=== PATIENT | female | born 1990 | race Caucasian/White ===

== ENCOUNTER 2016-12-21 15:06 | Inpatient (IN) | payer OTHER ==
[~2016-12-21] VITALS: Ht 165.1 cm; Wt 96.2 kg
--- NOTE | 2016-12-21 15:32 | Emergency Room Report ---
History of Present Illness General Chief Complaint: Skin Rash/Abscess Source: Patient Present Illness HPI This patient has a history of chronic hidradenitis suppurativa. She presents for surgical treatment by Dr. Espinoza. She denies fever or chills. She has no other complaints. Allergies: Coded Allergies: No Known Allergies (Unverified , 12/21/16) Patient History Past Medical History: other - Hidradinitis supperitiva 11/17 Social History: Denies: alcohol use, drug use, smoking Last Menstrual Period: unk Reviewed Nursing Documentation: PMH: Agreed, PSxH: Agreed Nursing Documentation-PMH Past Medical History: No History, Except For Review of Systems All Other Systems: negative except mentioned in HPI Physical Exam Vital Signs Date Time Temp Pulse Resp B/P Pulse Ox O2 Delivery O2 Flow Rate FiO2 12/21/16 15:15 98.4 71 16 114/77 97 Room Air Sp02 EP Interpretation: reviewed, normal General Appearance: no apparent distress, alert, GCS 15, non-toxic Head: normocephalic, atraumatic Eyes: bilateral eye PERRL, bilateral eye normal inspection ENT: hearing grossly normal, normal pharynx, no angioedema, normal voice Neck: full range of motion, supple/symm/no masses Respiratory: chest non-tender, lungs clear, normal breath sounds, speaking full sentences Cardiovascular #1: regular rate, rhythm, no edema Gastrointestinal: normal bowel sounds, non tender, soft, non-distended, no guarding, no rebound Rectal: deferred Musculoskeletal: back normal, gait/station normal, normal range of motion, non- tender Neurologic: alert, oriented x3, responsive, motor strength/tone normal, sensory intact, speech normal Psychiatric: judgement/insight normal, memory normal, mood/affect normal, no suicidal/homicidal ideation Skin: well hydrated, other - Inflammatory nodule bilateral inguinal region. Medical Decision Making Diagnostic Impression: Primary Impression: Hidradenitis suppurativa ER Course This patient has hidradenitis suppurativa that is resistant to conservative treatment. Patient is admitted for surgical treatment by Dr. Espinoza. Labs Test 12/21/16 16:11 White Blood Count 12.5 K/UL (4.8-10.8) Red Blood Count 4.00 M/UL (4.20-5.40) Hemoglobin 12.4 G/DL (12.0-16.0) Hematocrit 35.8 % (37.0-47.0) Mean Corpuscular Volume 90 FL (80-99) Mean Corpuscular Hemoglobin 31.1 PG (27.0-31.0) Mean Corpuscular Hemoglobin Concent 34.8 G/DL (32.0-36.0) Red Cell Distribution Width 12.5 % (11.6-14.8) Platelet Count 282 K/UL (150-450) Mean Platelet Volume 7.2 FL (6.5-10.1) Neutrophils (%) (Auto) 57.4 % (45.0-75.0) Lymphocytes (%) (Auto) 33.0 % (20.0-45.0) Monocytes (%) (Auto) 6.9 % (1.0-10.0) Eosinophils (%) (Auto) 1.6 % (0.0-3.0) Basophils (%) (Auto) 1.1 % (0.0-2.0) Prothrombin Time 10.4 SEC (9.30-11.50) Prothromb Time International Ratio 1.0 (0.9-1.1) Activated Partial Thromboplast Time 28 SEC (23-33) Sodium Level 136 mEQ/L (135-145) Potassium Level 3.9 mEQ/L (3.4-4.9) Chloride Level 101 mEQ/L (98-107) Carbon Dioxide Level 23 mEQ/L (20-30) Anion Gap 12 (5-15) Blood Urea Nitrogen 9 mg/dL (7-23) Creatinine 0.8 mg/dL (0.5-0.9) Estimat Glomerular Filtration Rate > 60 mL/min (>60) Glucose Level 91 mg/dL (74-106) Calcium Level 9.6 mg/dL (8.6-10.2) Last Vital Signs Date Time Temp Pulse Resp B/P Pulse Ox O2 Delivery O2 Flow Rate FiO2 12/21/16 15:15 98.4 71 16 114/77 97 Room Air Disposition: ADMITTED INPATIENT Condition: Stable LIMA WALLER D.O. Dec 21, 2016 15:32
[2016-12-21] MEDS ORDERED: MONTELUKAST SOD10 MG ORAL (16:18)
[2016-12-21] MEDS ORDERED: SINGULAIR10 MG ORAL (16:18)
[2016-12-21] MEDS ORDERED: SYMBICORT INH (16:18)
[2016-12-21] MEDS ORDERED: NATURAL THYROID PO (16:19)
[2016-12-21 16:28] LABS: BASOPHILS % (AUTO) 1.1 % (0.0-2.0); EOSINOPHILS % (AUTO) 1.6 % (0.0-3.0); MEAN CORPUSCULAR HEMOGLOBIN 31.1 PG (27.0-31.0); MEAN CORPUSCULAR HGB CONC 34.8 G/DL (32.0-36.0); MEAN CORPUSCULAR VOLUME 90 FL (80-99); MEAN PLATELET VOLUME 7.2 FL (6.5-10.1); MONOCYTES % (AUTO) 6.9 % (1.0-10.0); NEUTROPHILS % (AUTO) 57.4 % (45.0-75.0); PLATELET COUNT 282 K/UL (150-450); RED CELL DISTRIBUTION WIDTH 12.5 % (11.6-14.8); WHITE BLOOD COUNT 12.5 K/UL (4.8-10.8)
[2016-12-21 16:41] LABS: PROTHROMBIN TIME 10.4 SEC (9.30-11.50)
[2016-12-21 16:52] VITALS: BP 118/75
[2016-12-21 17:03] LABS: ANION GAP 12 (5-15); CALCIUM 9.6 mg/dL (8.6-10.2); CARBON DIOXIDE 23 mEQ/L (20-30); CHLORIDE 101 mEQ/L (98-107); CREATININE 0.8 mg/dL (0.5-0.9); GLOMERULAR FILTRATION RATE > 60 mL/min (>60); HEMOLYSIS 6; POTASSIUM 3.9 mEQ/L (3.4-4.9); SODIUM 136 mEQ/L (135-145)
[2016-12-21] MEDS ORDERED: SYMBICORT 16010.2 G1 IH (18:10)
[2016-12-21] MEDS ORDERED: LEVOCETIRIZINE D5 MG ORAL (18:11)
[2016-12-21] MEDS ORDERED: PROAIR HFA8.5 GM INH (18:12)
[2016-12-21] MEDS ORDERED: DEPO-PROVE150 MG/1 M IM (18:14)
[2016-12-21] MEDS ORDERED: Milk of Magnesia 30ml Ud ORAL PRN (18:15)
[2016-12-21] MEDS ORDERED: LORazepam Inj 2mg/ml 1ml IV PRN (18:15)
[2016-12-21] MEDS ORDERED: Morphine Sulfate 2mg/ml Inj IVP PRN (18:15)
[2016-12-21] MEDS ORDERED: Morphine Sulfate 4mg/ml Inj IVP PRN (18:15)
[2016-12-21] MEDS ORDERED: Mylanta II UD 30ml ORAL PRN (18:15)
[2016-12-21] MEDS ORDERED: Miralax 17gm pkt ORAL PRN (18:15)
[2016-12-21] MEDS ORDERED: IBUPROFEN600 MG ORAL (18:15)
[2016-12-21 18:27] VITALS: BP 122/79
--- NOTE | 2016-12-21 18:52 | History and Physical ---
History of Present Illness General Date patient seen: Dec 21, 2016 Time patient seen: 18:48 Reason for Hospitalization: Skin Rash/Abscess Present Illness HPI 26 y/o female with hx of hidradenitis suppurativa, presents to the ED with c/o bilateral groin and R axillary lesions, painful to touch. Pt is s/p previous groin resection a month ago, however it was limited, and her disease has progressed. she has been on multiple abx in the past and on humira without significant improvement. She did not have any complications from cardio/pulm standpoint or from gen anesthesia with her last surgery. Pt saw her surgeon today in clinic and was sent to ED due to concern for possible abscess Allergies: Coded Allergies: No Known Allergies (Unverified , 12/21/16) Medication History Scheduled Budesonide/Formoterol Fumarate (Symbicort 160-4.5 Mcg Inhaler), 2 PUFF IH DAILY, (Reported) Levocetirizine Dihydrochloride (Levocetirizine Dihydrochloride), 5 MG ORAL DAILY , (Reported) Montelukast Sodium* (Montelukast Sodium*), Unknown Dose ORAL DAILY, (Reported) Scheduled PRN Albuterol Sulfate* (Proair Hfa*), 1 PUFF INH Q6H PRN for Bronchospasm, (Reported ) Ibuprofen* (Motrin*), 400 MG ORAL for For Pain, (Reported) Miscellaneous Medications Medroxyprogesterone Acetate (Depo-Provera), 150 MG IM, (Reported) Patient History History Provided By: Patient, Family Member Healthcare decision maker Resuscitation status ful code Advanced Directive on File Past Medical/Surgical History Past Medical/Surgical History: (1) Hidradenitis suppurativa Family History Family History: Patient reports no known family medical history. Social History Social History: (1) No significant social history Review of Systems ROS Narrative CONSTITUTIONAL: No weight loss, fever, chills, weakness or fatigue. HEENT: Eyes: No visual loss, blurred vision, double vision or yellow sclerae. Ears, Nose, Throat: No hearing loss, sneezing, congestion, runny nose or sore throat. SKIN: No rash or itching. CARDIOVASCULAR: No chest pain, chest pressure or chest discomfort. No palpitations or edema. RESPIRATORY: No shortness of breath, cough or sputum. GASTROINTESTINAL: No anorexia, nausea, vomiting or diarrhea. No abdominal pain or blood. NEUROLOGICAL: No headache, dizziness, syncope, paralysis, ataxia, numbness or tingling in the extremities. No change in bowel or bladder control. MUSCULOSKELETAL: discomfort in groin and R axilla, multiple lesions, skin changes HEMATOLOGIC: No anemia, bleeding or bruising. LYMPHATICS: No enlarged nodes. No history of splenectomy. PSYCHIATRIC: No history of depression or anxiety. ENDOCRINOLOGIC: No reports of sweating, cold or heat intolerance. No polyuria or polydipsia. ALLERGIES: No history of asthma, hives, eczema or rhinitis. Physical Exam Physical Exam Narrative General: alert, cooperative, no distress, appears stated age Head: normocephalic, without obvious abnormality, atraumatic Eyes: conjunctivae/corneas clear. PERRL, EOM's intact Throat: lips, mucosa, and tongue normal. MMM Neck: supple, symmetrical, trachea midline, and no JVD Lungs: clear to auscultation bilaterally Heart: regular rate and rhythm, S1, S2 normal, no murmur, click, rub or gallop Abdomen: soft, non-tender, non-distended, bowel sounds normal; no masses or organomegaly Extremities: bilateral groin lesions, some erythema, milt tenderness to palpation, no active pus or bleeding, multiple indurations R axillary lesion, min erythema, no rubor, indurated, no fluctuance Pulses: 2+ and symmetric Skin: skin color, texture, turgor normal; no rashes or lesions Neurologic: grossly normal, no focal deficits Last 24 Hour Vital Signs Date Time Temp Pulse Resp B/P Pulse Ox O2 Delivery O2 Flow Rate FiO2 12/21/16 18:27 98.2 77 14 122/79 98 Room Air 12/21/16 16:52 98.3 74 15 118/75 98 Room Air 12/21/16 15:15 98.4 71 16 114/77 97 Room Air Laboratory Tests Test 12/21/16 16:11 White Blood Count 12.5 K/UL (4.8-10.8) H Red Blood Count 4.00 M/UL (4.20-5.40) L Hemoglobin 12.4 G/DL (12.0-16.0) Hematocrit 35.8 % (37.0-47.0) L Mean Corpuscular Volume 90 FL (80-99) Mean Corpuscular Hemoglobin 31.1 PG (27.0-31.0) H Mean Corpuscular Hemoglobin Concent 34.8 G/DL (32.0-36.0) Red Cell Distribution Width 12.5 % (11.6-14.8) Platelet Count 282 K/UL (150-450) Mean Platelet Volume 7.2 FL (6.5-10.1) Neutrophils (%) (Auto) 57.4 % (45.0-75.0) Lymphocytes (%) (Auto) 33.0 % (20.0-45.0) Monocytes (%) (Auto) 6.9 % (1.0-10.0) Eosinophils (%) (Auto) 1.6 % (0.0-3.0) Basophils (%) (Auto) 1.1 % (0.0-2.0) Prothrombin Time 10.4 SEC (9.30-11.50) Prothromb Time International Ratio 1.0 (0.9-1.1) Activated Partial Thromboplast Time 28 SEC (23-33) Sodium Level 136 mEQ/L (135-145) Potassium Level 3.9 mEQ/L (3.4-4.9) Chloride Level 101 mEQ/L (98-107) Carbon Dioxide Level 23 mEQ/L (20-30) Anion Gap 12 (5-15) Blood Urea Nitrogen 9 mg/dL (7-23) Creatinine 0.8 mg/dL (0.5-0.9) Estimat Glomerular Filtration Rate > 60 mL/min (>60) Glucose Level 91 mg/dL (74-106) Calcium Level 9.6 mg/dL (8.6-10.2) Height (Feet): 5 Height (Inches): 5.00 Weight (Pounds): 212 Medications Current Medications Medications (Trade) Dose Ordered Sig/Last Route PRN Reason Start Time Stop Time Status Last Admin Dose Admin Acetaminophen (Tylenol) 650 mg Q4H PRN ORAL Mild Pain (Pain Scale 1-3) 12/21/16 18:15 01/20/17 18:14 UNV Acetaminophen (Tylenol) 650 mg Q4H PRN ORAL fever 12/21/16 18:15 01/20/17 18:14 UNV Al Hydroxide/Mg Hydroxide (Mylanta II) 30 ml Q6H PRN ORAL dyspepsia 12/21/16 18:15 01/20/17 18:14 UNV Bisacodyl (Dulcolax) 10 mg HSPRN PRN RECTAL Constipation 12/21/16 18:15 01/20/17 18:14 UNV Cefazolin Sodium/ Dextrose (Ancef/D5W) 55 ml @ 110 mls/hr Q8HR IVPB 12/21/16 22:00 12/28/16 21:59 UNV Dextrose STAT PRN IV Hypoglycemia 12/21/16 18:15 01/20/17 18:14 UNV Diphenhydramine HCl (Benadryl) 25 mg Q6H PRN ORAL Itching/Pruritis 12/21/16 18:15 01/20/17 18:14 UNV Docusate Sodium (Colace) 100 mg EVERY 12 HOURS ORAL 12/21/16 21:00 01/20/17 20:59 UNV Lorazepam (Ativan 2mg/ml 1ml) 0.5 mg Q4H PRN IV For Anxiety 12/21/16 18:15 12/28/16 18:14 UNV Magnesium Hydroxide (Mom) 30 ml HSPRN PRN ORAL Constipation 12/21/16 18:15 01/20/17 18:14 UNV Morphine Sulfate (Morphine Sulfate) 2 mg Q4HR PRN IVP Moderate Pain (Pain Scale 4-6) 12/21/16 18:15 12/28/16 18:14 UNV Morphine Sulfate (Morphine Sulfate) 4 mg Q4HR PRN IVP Severe Pain (Pain Scale 7-10) 12/21/16 18:15 12/28/16 18:14 UNV Ondansetron HCl (Zofran) 4 mg Q6H PRN IVP Nausea & Vomiting 12/21/16 18:15 01/20/17 18:14 UNV Polyethylene Glycol (Miralax) 17 gm HSPRN PRN ORAL Constipation 12/21/16 18:15 01/20/17 18:14 UNV Temazepam (Restoril) 15 mg HSPRN PRN ORAL Insomnia 12/21/16 18:15 12/28/16 18:14 UNV Assessment/Plan Problem List: (1) Abscess Assessment & Plan: Admit to inpatient Start IV abx Surgical consultation Pain control Supp care f/u cultures DVT/GI ppx ICD Codes: L02.91 - Cutaneous abscess, unspecified SNOMED: [id number] KIT DAVIDSON Dec 21, 2016 18:52
[2016-12-21] MEDS ORDERED: Albuterol 90mcg Inhaler 8gm INH PRN (19:00)
[2016-12-21 20:00] VITALS: BP 113/69
[2016-12-21] MEDS: ceFAZolin sod 1 GM in D5W 55 ML IVPB SCH (20:35)
[2016-12-21] MEDS: Docusate 100mg cap ORAL SCH (20:35)
[2016-12-22] VITALS (11 sets, daily range): BP systolic 112–134; BP diastolic 55–77
[2016-12-22] MEDS: ceFAZolin sod 1 GM in D5W 55 ML IVPB SCH ×3 (05:44→21:16)
[2016-12-22] MEDS ORDERED: Ketamine 500mg Inj ONE (07:00)
[2016-12-22] MEDS ORDERED: Propofol 10mg/ml 20ml IV ONE (07:00)
[2016-12-22] MEDS ORDERED: Lidocaine 1% Plain 30 ml INJ ONE (07:00)
[2016-12-22] MEDS ORDERED: NS Irrig 1000ml ONE (07:00)
[2016-12-22] MEDS ORDERED: Zemuron 50mg/5ml Inj IV ONE (07:00)
[2016-12-22] MEDS ORDERED: Glycopyrrolate 0.2mg/ml 1ml Vial ONE (07:00)
[2016-12-22] MEDS ORDERED: Lidocaine 1% MPF 10mg/ml 5ml ONE (07:00)
[2016-12-22] MEDS ORDERED: Metoprolol 5mg/5ml Inj ONE (07:00)
[2016-12-22] MEDS ORDERED: LR 1000ml ONE (07:00)
[2016-12-22] MEDS ORDERED: Sterile Water Irrig 1000ml IRRIG ONE (07:00)
[2016-12-22] MEDS ORDERED: Neostigmine 1mg/ml 10ml Inj ONE (07:00)
[2016-12-22] MEDS ORDERED: fentaNYL 100 mcg/2 mL IV ONE (07:00)
[2016-12-22] MEDS ORDERED: Dexamethasone 4mg/ml vial ONE (07:00)
[2016-12-22] MEDS ORDERED: Midazolam 2mg/2ml Inj ONE (07:00)
[2016-12-22] MEDS ORDERED: Lidocaine 1% 10mg/ml/Epi 0.005mg/ml 30ml vial INJ ONE (07:33)
[2016-12-22] MEDS ORDERED: Bacitracin 50000 Units Vial ONE (07:34)
[2016-12-22] MEDS ORDERED: LR 1000ml 1,000 ML IVLG SCH (07:41)
--- NOTE | 2016-12-22 07:41 | Anethesia Preoperative Eval ---
Anesthesia Pre-op PMH/ROS General Date of Evaluation: Dec 22, 2016 Time of Evaluation: 07:36 Anesthesiologist: Rosa ASA Score: ASA 2 - Emergergency Mallampati Score Class I : Soft palate, uvula, fauces, pillars visible Class II: Soft palate, uvula, fauces visible Class III: Soft palate, base of uvula visible Class IV: Only hard plate visible Mallampati Classification: Class I Surgeon: Marcelino Diagnosis: Hidradenitis Suppurativa Surgical Procedure: Debridment of Bilateral Groin/Thighs with Flap Elevation Anesthesia History: none Family History: no anesthesia problems Allergies: Coded Allergies: No Known Allergies (Unverified , 12/21/16) Medications: see eMAR Past Medical History Pulmonary: Reports: asthma Other: obesity - BMI 35 Anesthesia Pre-op Phys. Exam Physician Exam Last Vital Signs Date Time Temp Pulse Resp B/P Pulse Ox O2 Delivery O2 Flow Rate FiO2 12/22/16 04:00 97.9 65 17 127/62 99 Room Air Constitutional: NAD Neurologic: CN 2-12 intact Cardiovascular: RRR Respiratory: CTA Gastrointestinal: S/NT/ND Airway Exam Mallampati Score: Class I MO: full ROM: full Teeth: intact Anesthesia Pre-op A/P Labs Hematology Test 12/21/16 16:11 White Blood Count 12.5 K/UL (4.8-10.8) H Red Blood Count 4.00 M/UL (4.20-5.40) L Hemoglobin 12.4 G/DL (12.0-16.0) Hematocrit 35.8 % (37.0-47.0) L Mean Corpuscular Volume 90 FL (80-99) Mean Corpuscular Hemoglobin 31.1 PG (27.0-31.0) H Mean Corpuscular Hemoglobin Concent 34.8 G/DL (32.0-36.0) Red Cell Distribution Width 12.5 % (11.6-14.8) Platelet Count 282 K/UL (150-450) Mean Platelet Volume 7.2 FL (6.5-10.1) Neutrophils (%) (Auto) 57.4 % (45.0-75.0) Lymphocytes (%) (Auto) 33.0 % (20.0-45.0) Monocytes (%) (Auto) 6.9 % (1.0-10.0) Eosinophils (%) (Auto) 1.6 % (0.0-3.0) Basophils (%) (Auto) 1.1 % (0.0-2.0) Coagulation Test 12/21/16 16:11 Prothrombin Time 10.4 SEC (9.30-11.50) Prothromb Time International Ratio 1.0 (0.9-1.1) Activated Partial Thromboplast Time 28 SEC (23-33) Chemistry Test 12/21/16 16:11 Sodium Level 136 mEQ/L (135-145) Potassium Level 3.9 mEQ/L (3.4-4.9) Chloride Level 101 mEQ/L (98-107) Carbon Dioxide Level 23 mEQ/L (20-30) Anion Gap 12 (5-15) Blood Urea Nitrogen 9 mg/dL (7-23) Creatinine 0.8 mg/dL (0.5-0.9) Estimat Glomerular Filtration Rate > 60 mL/min (>60) Glucose Level 91 mg/dL (74-106) Calcium Level 9.6 mg/dL (8.6-10.2) Urine Test Test 12/21/16 23:00 Urine HCG, Qualitative Negative Risk Assessment & Plan Assessment: ASA 2 Plan: GA, BIS, Glidescope Status Change Before Surgery: No Pre-Antibiotics Dru Grams Ancef IV Given Within 1 Hr of Incision: Yes Time Given: 07:56 Celestino Lee MD Dec 22, 2016 07:41
[2016-12-22] MEDS ORDERED: Ketorolac 30mg Inj IV PRN (07:45)
[2016-12-22] MEDS ORDERED: LORazepam Inj 2mg/ml 1ml IV PRN (07:45)
[2016-12-22] MEDS ORDERED: Midazolam 2mg/2ml Inj IVP PRN (07:45)
[2016-12-22] MEDS ORDERED: Hydromorphone 0.5mg/0.5ml inj IVP PRN (07:45)
[2016-12-22] MEDS ORDERED: Atropine Inj 1mg/10ml Syr IV PRN (07:45)
[2016-12-22] MEDS ORDERED: Meperidine 25mg/0.5ml Inj (FOR RIGORS ONLY) IV PRN (07:45)
[2016-12-22] MEDS ORDERED: Norco 5mg/325mg tab ORAL PRN (07:45)
[2016-12-22] MEDS ORDERED: Oxycodone/Acetaminophen 5-325 ORAL PRN (07:45)
[2016-12-22] MEDS ORDERED: Ketorolac 60mg Inj IV PRN (07:45)
[2016-12-22] MEDS ORDERED: Norco 7.5mg/325mg tab ORAL PRN (07:45)
[2016-12-22] MEDS ORDERED: fentaNYL 100 mcg/2 mL IV PRN (07:45)
[2016-12-22] MEDS ORDERED: DiphenhydrAMINE 50mg/ml Inj IVP PRN ×2 (07:45→08:00)
[2016-12-22] MEDS ORDERED: Metoclopramide 10mg/2ml Inj IVP PRN ×2 (07:45→21:30)
--- NOTE | 2016-12-22 07:46 | 48 Hour Post Anesthesia Eval ---
Post Anesthesia Evaluation Procedure: Debridment of Bilateral Groin/Thighs with Flap Elevation Date of Evaluation: Dec 22, 2016 Time of Evaluation: 12:41 Blood Pressure Systolic: 131 0: 72 Pulse Rate: 62 Respiratory Rate: 18 Temperature (Fahrenheit): 98.3 O2 Sat by Pulse Oximetry: 100 Airway: patent Nausea: No Vomiting: No Pain Intensity: 2 Hydration Status: adequate Cardiopulmonary Status: Stable Mental Status/LOC: patient returned to baseline Follow-up Care/Observations: 0 Post-Anesthesia Complications: 0 Follow-up care needed: N/A Celestino Lee MD Dec 22, 2016 07:46
--- NOTE | 2016-12-22 07:46 | Immediate Post-Op Evaluation ---
Immediate Post-Op Evalulation Immediate Post-Op Evalulation Procedure: Debridment of Bilateral Groin/Thighs with Flap Elevation Date of Evaluation: Dec 22, 2016 Time of Evaluation: 10:29 IV Fluids: 900 LR Blood Products: 0 Estimated Blood Loss: 75 Urinary Output: 225 Blood Pressure Systolic: 135 Blood Pressure Diastolic: 68 Pulse Rate: 76 Respiratory Rate: 16 O2 Sat by Pulse Oximetry: 100 Temperature (Fahrenheit): 97.2 Pain Score (1-10): 2 Nausea: No Vomiting: No Complications 0 Patient Status: awake, reacts, patent, extubated, none Hydration Status: adequate DruGram Ancef IV Given Within 1 Hr of Incision: Yes Time Given: 07:56 Celestino Lee MD Dec 22, 2016 07:46
--- NOTE | 2016-12-22 07:50 | Pre-Procedure Note/Attestation ---
Pre-Procedure Note/Attestation Complete Prior to Procedure Planned Procedure: bilateral Procedure Narrative: Bilateral groin debridement and flap elevation Attestation I attest that I discussed the nature of the procedure; its benefits; risks and complications; and alternatives (and the risks and benefits of such alternatives ), prior to the procedure, with the patient (or the patient's legal junior sales representative). I attest that, if there was a reasonable possibility of needing a blood transfusion, the patient (or the patient's legal junior sales representative) was given the [facility] standardized written summary, pursuant to the Marlon [place] Blood Safety Act ([place] Health and Safety Code # 1645, as amended). I attest that I re-evaluated the patient just prior to the surgery and that there has been no change in the patient's H&P, except as documented below: ADDISON SIERRA Dec 22, 2016 07:50
[2016-12-22] MEDS ORDERED: Surgicel 4in x 8in TOPIC ONE ×3 (07:57→09:39)
[2016-12-22] MEDS ORDERED: Rate Change PCA 1 Each MISC PRN (08:00)
[2016-12-22] MEDS ORDERED: Acetaminophen 650 MG SUPP RECTAL PRN (08:00)
[2016-12-22 08:24] LABS: ANION GAP 12 (5-15); CALCIUM 9.6 mg/dL (8.6-10.2); CARBON DIOXIDE 23 mEQ/L (20-30); CHLORIDE 102 mEQ/L (98-107); CREATININE 0.8 mg/dL (0.5-0.9); GLOMERULAR FILTRATION RATE > 60 mL/min (>60); HEMOLYSIS 13; POTASSIUM 3.8 mEQ/L (3.4-4.9); SODIUM 137 mEQ/L (135-145)
[2016-12-22 08:57] LABS: BASOPHILS % (AUTO) 1.1 % (0.0-2.0); EOSINOPHILS % (AUTO) 2.5 % (0.0-3.0); LYMPHOCYTES % (AUTO) 36.3 % (20.0-45.0); MEAN CORPUSCULAR HEMOGLOBIN 28.4 PG (27.0-31.0); MEAN CORPUSCULAR VOLUME 91 FL (80-99); MONOCYTES % (AUTO) 6.1 % (1.0-10.0); PLATELET COUNT 332 K/UL (150-450); RED BLOOD COUNT 4.66 M/UL (4.20-5.40); RED CELL DISTRIBUTION WIDTH 12.7 % (11.6-14.8); WHITE BLOOD COUNT 11.8 K/UL (4.8-10.8)
[2016-12-22] MEDS: Montelukast 10mg tablet ORAL SCH (09:00)
[2016-12-22] MEDS: Docusate 100mg cap ORAL SCH ×2 (09:00→21:07)
--- NOTE | 2016-12-22 10:05 | Operative Note - PDOC ---
Operative Note Operative Note Pre-op Diagnosis: Bilateral infected groin tissue Procedure: Radical excision of bilateral infected groin tissue with flap elevation and wound vac placement Post-op Diagnosis: same as pre-op Surgeon: Marcelino [employer] Operator: Regino Anesthesia: general Specimen: yes Complications: none Condition: stable Estimated Blood Loss: minimal Drains: wound vac Implant(s) used?: No ADDISON SIERRA Dec 22, 2016 10:05
[2016-12-22] MEDS: PCA HYDROmorphone 1mg/ml 30 ML IV PRN (10:26)
--- NOTE | 2016-12-22 11:30 | Consultation ---
DATE OF CONSULTATION: 12/22/2016 HISTORY OF PRESENT ILLNESS: This is a 26-year-old female, admitted to the emergency room with bilateral groin abscess and pain with an elevated white count. She had been complaining of symptoms for several days with worsening of symptoms recently. PAST MEDICAL HISTORY: Significant for hidradenitis. PAST SURGICAL HISTORY: Significant for a previous incision and drainage as well as excision of hidradenitis. MEDICATIONS: Include antibiotics. ALLERGIES: None. PHYSICAL EXAMINATION: GENERAL: The patient is alert and oriented. HEART: Regular rate and rhythm. ABDOMEN: Obese and nondistended. EXTREMITIES: Examination of the trunk and lower extremities revealed multiple areas of abscess and infected groin tissue and upper thigh tissue. LABORATORY DATA: White blood cell count was 12.5 as stated. ASSESSMENT AND PLAN: This is a 26-year-old female with bilateral infected groin tissues. She will require intravenous antibiotics with radical excisional debridement with a staged reconstruction using flaps. The patient understands the plan and will proceed. Connie Benson M.D. DR: FRAN JOB#: [id number] CC:
--- NOTE | 2016-12-22 11:45 | Operative Note - Dictated ---
DATE OF OPERATION: 12/22/2016 PREOPERATIVE DIAGNOSIS: Bilateral infected groin tissue. POSTOPERATIVE DIAGNOSIS: Bilateral infected groin tissue. PROCEDURES: 1. Radical excision of infected right groin tissue. 2. Elevation of anterior fasciocutaneous thigh flap for staged closure of right groin wound measuring 180 square cm. 3. Elevation of a posterior thigh flap for staged closure of right groin wound measuring 180 sq cm. 4. Radical excision of left groin infected tissue. 5. Elevation of an anterior thigh flap for staged closure of left groin wound measuring 190 square cm. 6. Elevation of a posterior thigh flap for staged closure of left groin wound measuring 190 square cm. 7. Bilateral wound VAC placement to the open groin wounds. SURGEON: Connie Benson M.D. SUBSTANCE ABUSE TECHNICIAN: Mala Lacy M.D. ANESTHESIA: General. COMPLICATIONS: None. EBL: 50 mL. DRAINS: Included bilateral wound VACs. DISPOSITION: Stable to the recovery room. INDICATIONS FOR SURGERY: This is a 26-year-old female, admitted to the emergency room with an elevated white count of 12.5 with bilateral groin abscesses and infected tissue. She was complaining of several days of pain and discomfort and which is why she presented to the emergency room with these symptoms. She was noted to have significant areas of infection, which would require radical excision and given the amount of infection present. The discussion I had with the patient with that this would require a staged treatment with excision followed by definitive flap closure following the first surgery. She understood this and understand that she would need more than one operation and she agreed to proceed. DETAILS OF THE OPERATION: The patient was brought to the operating room and laid in the lithotomy position in the operating room table. Her bilateral groins, upper thighs, and lower abdomen were prepped and draped in a sterile and usual fashion. Preoperatively, the areas that had the infection were marked in a maya-shaped pattern on both sides. These were quite large wounds and once the markings were confirmed to be correct, a #10 blade was used first on the left groin to make the skin incision all the way around the maya-shaped pattern with subsequent use of electrocautery to radically excised infected tissue to the level of the adductor fascia. This resulted in a very large defect of approximately 190 square cm. With this done, it was obvious that the wound could not be closed primarily. As such, flaps had to be elevated to allow for this closure. We first began by elevating the anterior thigh flap based off of perforators of the superficial femoral artery undermining done at the level of the adductor fascia, however, even with this, it was noted that a significant back cut had to be performed to allow for advancement of the flap. The back cut was placed within the groin crease and this was extended approximately 7 cm cephalad to allow for advancement of the flap. At this time, we noted that we would be able to achieve further closure, however, it was still not complete. As such, a posterior thigh flap was elevated based off of perforators of the deep femoral artery. This flap was elevated above the fascia level with proximal and distal incisions made to fully mobilize the flap. With this done, we noted the flaps could be brought together, however, there was still some tension noted. We then at this point placed a lidocaine with epinephrine soaked gauze within the wound bed and turned our attention to the contralateral groin wound. The right groin wound was similarly approached using a #10 blade to make the skin incision around the markings and electrocautery was then used to carry all the way down to the level of the adductor fascia to radically excise this infected groin tissue. This resulted in a similar size wound and in a similar fashion, we had to raise flaps to allow for definitive wound closure and anterior thigh flap based off of perforators of the superficial femoral artery was elevated with proximal and distal incisions made. Once again, the back cut had to be placed within the groin crease to allow for further advancement of the flap and in a similar fashion, a posterior thigh flap was also elevated based off of perforators of the deep femoral artery with proximal and distal incisions made to fully mobilize the flap. On this side, it was noted that the flap advanced and allow for less tension to the wound closure. Both wounds were then copiously irrigated with pulse lavage and hemostasis was achieved. Given the fact that there was infection present and given the fact that there was tension on the flaps despite mobilizing them significantly. I felt an appropriate course of action. At this point, would be to temporize the wound with placement of wound VAC. With the thought of bringing the patient back to the operating room within 3 to 5 days for definitive flap closure. The wound VACs were placed set to 150 mmHg on high continuous suction. The patient tolerated the procedure well. There were no complications. Connie Benson M.D. DR: ESTEBAN JOB#: [id number] CC:
--- NOTE | 2016-12-22 19:07 | General Progress Note ---
Assessment/Plan Problem List: (1) Abscess ICD Codes: L02.91 - Cutaneous abscess, unspecified SNOMED: 603811262 (2) Hidradenitis suppurativa ICD Codes: L73.2 - Hidradenitis suppurativa SNOMED: 25477564 (3) Abdominal cramping ICD Codes: R10.9 - Unspecified abdominal pain SNOMED: 21671825 Status: stable Assessment/Plan - Appreciate surgery rec's - s/p radical excision of bilateral infected groin tissue with flap elevation and wound vac placement on 12/22 - cont wound care per surgery - Cont IV abx: ancef - F/u cultures - Plan for OR on saturday for closure of right groin wound with delayed closure of left groin wound 2 days after - Encourage mobilization/ambulation - Encourage incentive spirometry to optimize pulmonary hygiene - DVT/GI prophylaxis as appropriate - ctm CBC and hemodynamics - ctm electrolytes, adjust/replete prn - pain control, supportive care, bowel regimen A total of 31min of additional time was spent in addition to normal encounter time for care/coordination and counseling. D/w pt, RN, surgery regarding mgmt and dispo. Subjective Date patient seen: Dec 22, 2016 Time patient seen: 16:00 ROS Limited/Unobtainable: No Constitutional: Reports: no symptoms HEENT: Reports: no symptoms Cardiovascular: Reports: no symptoms Respiratory: Reports: no symptoms Gastrointestinal/Abdominal: Reports: no symptoms Genitourinary: Reports: no symptoms Neurologic/Psychiatric: Reports: no symptoms Endocrine: Reports: no symptoms Hematologic/Lymphatic: Reports: no symptoms Allergies: Coded Allergies: No Known Allergies (Unverified , 12/21/16) Subjective s/p Radical excision of bilateral infected groin tissue with flap elevation and wound vac placement today Pt doing well Pain controlled C/o abd cramping, loose stools Some nausea after surgery, no emesis Denies f/c, chest pain, SOB Objective Last 24 Hour Vital Signs Date Time Temp Pulse Resp B/P Pulse Ox O2 Delivery O2 Flow Rate FiO2 12/22/16 16:00 97.5 85 18 113/63 96 Nasal Cannula 2.0 12/22/16 16:00 18 12/22/16 14:26 98.1 75 18 118/61 96 Nasal Cannula 2.0 12/22/16 14:25 75 18 95 Nasal Cannula 1.0 24 12/22/16 14:24 75 18 95 Nasal Cannula 1.0 24 12/22/16 12:29 97.9 68 18 118/67 98 Nasal Cannula 2.0 12/22/16 12:17 18 12/22/16 11:47 18 12/22/16 11:25 18 12/22/16 11:25 97.6 66 18 112/55 Nasal Cannula 3.0 12/22/16 11:00 97.6 12/22/16 11:00 97.6 12/22/16 11:00 17 12/22/16 11:00 97.6 63 18 131/71 100 Nasal Cannula 3.0 12/22/16 10:45 72 20 128/66 100 Nasal Cannula 3.0 12/22/16 10:45 15 12/22/16 10:30 99 16 134/77 100 Nasal Cannula 3.0 12/22/16 10:26 16 12/22/16 10:25 64 16 131/71 100 Simple Mask 6.0 12/22/16 10:21 62 18 100 12/22/16 10:20 76 16 100 12/22/16 10:18 97.2 65 16 125/68 100 Simple Mask 6.0 12/22/16 04:00 97.9 65 17 127/62 99 Room Air 12/21/16 20:00 97.7 70 18 113/69 99 Room Air Intake and Output 12/21/16 12/22/16 19:00 07:00 Output Total 3 ml Balance -3 ml Output Urine Total 3 ml Laboratory Tests 12/21/16 23:00: Urine HCG, Qualitative Negative 12/22/16 06:50: White Blood Count 11.8H, Red Blood Count 4.66, Hemoglobin 13.2, Hematocrit 42.6 , Mean Corpuscular Volume 91, Mean Corpuscular Hemoglobin 28.4, Mean Corpuscular Hemoglobin Concent 31.0L, Red Cell Distribution Width 12.7, Platelet Count 332, Mean Platelet Volume 7.0, Neutrophils (%) (Auto) 54.0, Lymphocytes (%) (Auto) 36.3, Monocytes (%) (Auto) 6.1, Eosinophils (%) (Auto) 2.5, Basophils (%) (Auto) 1.1, Sodium Level 137, Potassium Level 3.8, Chloride Level 102, Carbon Dioxide Level 23, Anion Gap 12, Blood Urea Nitrogen 6L, Creatinine 0.8, Estimat Glomerular Filtration Rate > 60, Glucose Level 93, Calcium Level 9.6 Height (Feet): 5 Height (Inches): 5.00 Weight (Pounds): 212 Objective General: alert, cooperative, no distress, appears stated age Head: normocephalic, without obvious abnormality, atraumatic Eyes: conjunctivae/corneas clear. PERRL, EOM's intact Throat: lips, mucosa, and tongue normal. MMM Neck: supple, symmetrical, trachea midline, and no JVD Lungs: clear to auscultation bilaterally Heart: regular rate and rhythm, S1, S2 normal, no murmur, click, rub or gallop Abdomen: soft, non-tender, non-distended, bowel sounds normal; no masses or organomegaly Extremities: extremities normal, atraumatic, no cyanosis or edema Pulses: 2+ and symmetric Skin: skin color, texture, turgor normal; no rashes or lesions Neurologic: grossly normal, no focal deficits Kirk Conner M.D. Dec 22, 2016 19:07
[2016-12-22] MEDS: PCA shift volume MISC SCH (19:15)
[2016-12-22] MEDS: Heparin 5000 units/ml inj SUBQ SCH (21:16)
[2016-12-23 04:00] VITALS: BP 117/68
[2016-12-23] MEDS: ceFAZolin sod 1 GM in D5W 55 ML IVPB SCH ×3 (05:31→21:14)
[2016-12-23] MEDS: PCA shift volume MISC SCH ×2 (07:02→19:25)
[2016-12-23 07:33] VITALS: BP 121/68
[2016-12-23] MEDS: Docusate 100mg cap ORAL SCH ×2 (08:17→21:14)
[2016-12-23] MEDS: Montelukast 10mg tablet ORAL SCH (08:17)
[2016-12-23] MEDS: Heparin 5000 units/ml inj SUBQ SCH ×2 (08:22→21:30)
--- NOTE | 2016-12-23 10:05 | General Progress Note ---
Progress Note Progress Note Pt seen and examined. POD # 1 and doing well. Wound vac fxing well. Pain is well controlled. Plan for OR on saturday for closure of right groin wound with delayed closure of left groin wound 2 days after. ADDISON Cota MD Dec 23, 2016 10:05
[2016-12-23] MEDS: PCA HYDROmorphone 1mg/ml 30 ML IV PRN (10:24)
[2016-12-23 11:54] VITALS: BP 118/63
--- NOTE | 2016-12-23 14:56 | General Progress Note ---
Assessment/Plan Problem List: (1) Abscess ICD Codes: L02.91 - Cutaneous abscess, unspecified SNOMED: 911603564 (2) Hidradenitis suppurativa ICD Codes: L73.2 - Hidradenitis suppurativa SNOMED: 47120921 (3) Abdominal cramping ICD Codes: R10.9 - Unspecified abdominal pain SNOMED: 96999177 Status: stable Assessment/Plan - Appreciate surgery rec's - s/p radical excision of bilateral infected groin tissue with flap elevation and wound vac placement on 12/22 - cont wound care per surgery - Cont IV abx: ancef - F/u cultures - Plan for OR on saturday for closure of right groin wound with delayed closure of left groin wound 2 days after - Encourage mobilization/ambulation - Encourage incentive spirometry to optimize pulmonary hygiene - DVT/GI prophylaxis as appropriate - ctm CBC and hemodynamics - ctm electrolytes, adjust/replete prn - pain control, supportive care, bowel regimen A total of 31min of additional time was spent in addition to normal encounter time for care/coordination and counseling. D/w pt, RN, surgery regarding mgmt and dispo. Subjective Date patient seen: Dec 23, 2016 Time patient seen: 14:55 Constitutional: Reports: no symptoms HEENT: Reports: no symptoms Cardiovascular: Reports: no symptoms Respiratory: Reports: no symptoms Gastrointestinal/Abdominal: Reports: no symptoms Genitourinary: Reports: no symptoms Neurologic/Psychiatric: Reports: no symptoms Hematologic/Lymphatic: Reports: no symptoms Allergies: Coded Allergies: No Known Allergies (Unverified , 12/21/16) Subjective POD#1 Pt doing well Pain controlled Abd cramping improved Denies f/c, n/v, d/c, chest pain, SOB Objective Last 24 Hour Vital Signs Date Time Temp Pulse Resp B/P Pulse Ox O2 Delivery O2 Flow Rate FiO2 12/23/16 12:00 18 12/23/16 11:54 97.8 102 20 118/63 96 Room Air 12/23/16 08:19 Nasal Cannula 2.0 12/23/16 08:18 108 18 Nasal Cannula 2.0 12/23/16 08:17 98 Nasal Cannula 2.0 12/23/16 08:12 111 18 98 Nasal Cannula 2.0 12/23/16 08:08 108 18 98 Nasal Cannula 2.0 12/23/16 08:00 17 12/23/16 07:33 98.6 106 21 121/68 97 Nasal Cannula 2.0 12/23/16 04:00 16 12/23/16 04:00 98.1 101 20 117/68 96 12/22/16 20:00 16 12/22/16 20:00 98.4 88 18 122/69 95 Room Air 12/22/16 19:46 Nasal Cannula 2.0 28 12/22/16 19:46 85 18 Nasal Cannula 2.0 28 12/22/16 19:46 98 Nasal Cannula 2.0 28 12/22/16 16:00 97.5 85 18 113/63 96 Nasal Cannula 2.0 12/22/16 16:00 18 Intake and Output 12/22/16 12/23/16 19:00 07:00 Intake Total 55 ml 300 ml Output Total 805 ml 2420 ml Balance -750 ml -2120 ml Intake Oral 300 ml IV Total 55 ml Output Urine Total 800 ml 2400 ml Drainage Total 5 ml Other 20 ml Height (Feet): 5 Height (Inches): 5.00 Weight (Pounds): 212 Objective General: alert, cooperative, no distress, appears stated age Head: normocephalic, without obvious abnormality, atraumatic Eyes: conjunctivae/corneas clear. PERRL, EOM's intact Throat: lips, mucosa, and tongue normal. MMM Neck: supple, symmetrical, trachea midline, and no JVD Lungs: clear to auscultation bilaterally Heart: regular rate and rhythm, S1, S2 normal, no murmur, click, rub or gallop Abdomen: soft, non-tender, non-distended, bowel sounds normal; no masses or organomegaly Extremities: extremities normal, atraumatic, no cyanosis or edema Pulses: 2+ and symmetric Skin: skin color, texture, turgor normal; no rashes or lesions Neurologic: grossly normal, no focal deficits Kirk Conner M.D. Dec 23, 2016 14:56
[2016-12-23 15:41] VITALS: BP 123/74
[2016-12-23 20:02] VITALS: BP 111/60
[2016-12-23] MEDS: Miralax 17gm pkt ORAL PRN (21:14)
[2016-12-24 00:07] VITALS: BP 115/69
[2016-12-24 04:15] VITALS: BP 114/72
[2016-12-24] MEDS: ceFAZolin sod 1 GM in D5W 55 ML IVPB SCH ×3 (06:20→21:01)
[2016-12-24] MEDS: PCA shift volume MISC SCH ×2 (07:07→19:11)
[2016-12-24 08:00] VITALS: BP 108/68
[2016-12-24] MEDS ORDERED: LORazepam Inj 2mg/ml 1ml IV PRN (08:00)
[2016-12-24] MEDS ORDERED: Rate Change PCA 1 Each MISC PRN (08:00)
[2016-12-24] MEDS ORDERED: PCA HYDROmorphone 1mg/ml 30 ML IV PRN (08:00)
[2016-12-24] MEDS: Montelukast 10mg tablet ORAL SCH (09:10)
[2016-12-24] MEDS: Docusate 100mg cap ORAL SCH ×2 (09:10→21:01)
[2016-12-24] MEDS: Heparin 5000 units/ml inj SUBQ SCH ×2 (09:17→21:00)
[2016-12-24 12:00] VITALS: BP 116/67
--- NOTE | 2016-12-24 12:28 | General Progress Note ---
Progress Note Progress Note Pt doing well. POD# 2 and will go to OR tomorrow. NPO and consent. ADDISON Cota MD Dec 24, 2016 12:28
--- NOTE | 2016-12-24 14:55 | General Progress Note ---
Assessment/Plan Problem List: (1) Abscess Assessment & Plan: s/p wound surgery Cont IV abx Wound care per Surgery Pain control Supp care f/u cultures DVT/GI ppx ICD Codes: L02.91 - Cutaneous abscess, unspecified SNOMED: 799147766 Subjective Date patient seen: Dec 24, 2016 Time patient seen: 14:53 ROS Limited/Unobtainable: No Allergies: Coded Allergies: No Known Allergies (Unverified , 12/21/16) Subjective s/p wound surgery, no periop or postop complications, pain well controlled. No fevers/chills. No n/v, concerned about having a BM, last one was Sat at 3am Objective Last 24 Hour Vital Signs Date Time Temp Pulse Resp B/P Pulse Ox O2 Delivery O2 Flow Rate FiO2 12/24/16 12:00 20 12/24/16 12:00 98.1 99 20 116/67 96 Room Air 12/24/16 10:45 98.1 12/24/16 10:15 19 12/24/16 09:01 91 18 Nasal Cannula 2.0 12/24/16 09:01 98 Nasal Cannula 2.0 28 12/24/16 09:01 Nasal Cannula 2.0 28 12/24/16 09:01 91 18 99 Nasal Cannula 2.0 28 12/24/16 09:01 92 18 96 Nasal Cannula 2.0 28 12/24/16 08:00 17 12/24/16 08:00 98.1 87 16 108/68 97 Room Air 12/24/16 04:15 98.1 96 18 114/72 97 Room Air 12/24/16 04:00 18 12/24/16 00:07 98.8 97 19 115/69 96 Room Air 12/24/16 00:00 18 12/23/16 23:43 Nasal Cannula 2.0 28 12/23/16 23:43 98 Nasal Cannula 2.0 28 12/23/16 23:42 97 16 Nasal Cannula 2.0 28 12/23/16 20:02 98.4 108 18 111/60 96 Room Air 12/23/16 20:00 18 12/23/16 16:00 18 12/23/16 15:41 98.2 88 20 123/74 96 Room Air Intake and Output 12/23/16 12/24/16 19:00 07:00 Intake Total 1580 ml 480 ml Output Total 1780 ml 2200 ml Balance -200 ml -1720 ml Intake Oral 1580 ml 480 ml Output Urine Total 1650 ml 2050 ml Other 130 ml 150 ml # Voids 1 Height (Feet): 5 Height (Inches): 5.00 Weight (Pounds): 212 Objective General: alert, cooperative, no distress, appears stated age Head: normocephalic, without obvious abnormality, atraumatic Eyes: conjunctivae/corneas clear. PERRL, EOM's intact Throat: lips, mucosa, and tongue normal. MMM Neck: supple, symmetrical, trachea midline, and no JVD Lungs: clear to auscultation bilaterally Heart: regular rate and rhythm, S1, S2 normal, no murmur, click, rub or gallop Abdomen: soft, non-tender, non-distended, bowel sounds normal; no masses or organomegaly Extremities: dressings c/d/i Pulses: 2+ and symmetric Skin: skin color, texture, turgor normal; no rashes or lesions Neurologic: grossly normal, no focal deficits KIT DAVIDSON Dec 24, 2016 14:55
[2016-12-24 16:00] VITALS: BP 116/64
[2016-12-24 20:00] VITALS: BP 111/62
[2016-12-25] VITALS (13 sets, daily range): BP systolic 93–138; BP diastolic 55–84
[2016-12-25] MEDS: ceFAZolin sod 1 GM in D5W 55 ML IVPB SCH ×3 (05:52→23:31)
[2016-12-25] MEDS: PCA shift volume MISC SCH ×2 (07:00→19:00)
[2016-12-25] MEDS: Docusate 100mg cap ORAL SCH ×2 (08:06→23:31)
[2016-12-25] MEDS: Heparin 5000 units/ml inj SUBQ SCH ×2 (08:07→23:38)
[2016-12-25] MEDS: Montelukast 10mg tablet ORAL SCH (08:07)
[2016-12-25] MEDS ORDERED: Propofol 10mg/ml 20ml IV ONE (11:39)
[2016-12-25] MEDS ORDERED: Lidocaine 1% 10mg/ml/Epi 0.005mg/ml 30ml vial INJ ONE (11:39)
[2016-12-25] MEDS ORDERED: Bacitracin 50000 Units Vial ONE (11:39)
[2016-12-25] MEDS ORDERED: LR 1000ml ONE (12:00)
[2016-12-25] MEDS ORDERED: Neostigmine 1mg/ml 10ml Inj ONE (12:00)
[2016-12-25] MEDS ORDERED: fentaNYL 100 mcg/2 mL IV ONE ×2 (12:00→15:15)
[2016-12-25] MEDS ORDERED: NS Irrig 1000ml ONE (12:00)
[2016-12-25] MEDS ORDERED: Succinylcholine 20mg/ml 10ml vial ONE (12:00)
[2016-12-25] MEDS ORDERED: Ketorolac 30mg Inj ONE (12:00)
[2016-12-25] MEDS ORDERED: Midazolam 2mg/2ml Inj ONE (12:00)
[2016-12-25] MEDS ORDERED: Morphine Sulfate 10mg/ml Inj ONE (12:00)
[2016-12-25] MEDS ORDERED: Glycopyrrolate 0.2mg/ml 1ml Vial ONE (12:00)
[2016-12-25] MEDS ORDERED: Sterile Water Irrig 1000ml IRRIG ONE (12:00)
--- NOTE | 2016-12-25 12:14 | Pre-Procedure Note/Attestation ---
Pre-Procedure Note/Attestation Complete Prior to Procedure Procedure Narrative: Right groin wound closure with wound vac change Indications for Procedure Pre-Operative Diagnosis: Bilateral infected groin tissue Attestation I attest that I discussed the nature of the procedure; its benefits; risks and complications; and alternatives (and the risks and benefits of such alternatives ), prior to the procedure, with the patient (or the patient's legal call center representative). I attest that, if there was a reasonable possibility of needing a blood transfusion, the patient (or the patient's legal call center representative) was given the [facility] standardized written summary, pursuant to the Marlon [place] Blood Safety Act ([place] Health and Safety Code # 1645, as amended). I attest that I re-evaluated the patient just prior to the surgery and that there has been no change in the patient's H&P, except as documented below: ADDISON SIERRA Dec 25, 2016 12:14
[2016-12-25] MEDS ORDERED: Rate Change PCA 1 Each MISC PRN (12:15)
[2016-12-25] MEDS ORDERED: Zolpidem 5mg tab ORAL PRN (12:15)
[2016-12-25] MEDS ORDERED: Transderm Scop 1mg Transdermal TDERMAL ONE (12:16)
[2016-12-25] MEDS ORDERED: NS Irrig 1000ml IRRIG ONE (13:00)
[2016-12-25] MEDS ORDERED: Surgicel 4in x 8in TOPIC ONE (13:21)
--- NOTE | 2016-12-25 13:22 | Anethesia Preoperative Eval ---
Anesthesia Pre-op PMH/ROS General Date of Evaluation: Dec 25, 2016 Time of Evaluation: 12:05 Anesthesiologist: Annelise ASA Score: ASA 2 Mallampati Score Class I : Soft palate, uvula, fauces, pillars visible Class II: Soft palate, uvula, fauces visible Class III: Soft palate, base of uvula visible Class IV: Only hard plate visible Mallampati Classification: Class II Surgeon: Marcelino Diagnosis: Recurrent HS Surgical Procedure: Revision and closure of bilateral groin wounds Anesthesia History: PONV Family History: no anesthesia problems Allergies: Coded Allergies: No Known Allergies (Unverified , 12/21/16) Medications: see eMAR Past Medical History Cardiovascular: Denies: CAD, HTN, PA, arrhythmia, other, valve dz Pulmonary: Reports: asthma - mild, Denies: COPD, CELESTE, other Gastrointestinal/Genitourinary: Reports: GERD - mild, Denies: CRI, ESRD, other Neurologic/Psychiatric: Reports: depression/anxiety, Denies: CVA, TIA, dementia, other Endocrine: Denies: DM, hypothyroidism, other, steroids HEENT: Denies: MESA GRANDE (L), MES[place] GRANDE (R), cataract (L), cataract (R), glaucoma, other Hematology/Immune: Denies: DVT, anemia, bleeding disorder, other Musculoskeletal/Integumentary: Reports: other - recurrent HS, Denies: DDD, DJD, OA, RA, edema Other: obesity PMH Narrative: as above PSxH Narrative: Surgical treatment of HS Anesthesia Pre-op Phys. Exam Physician Exam Last Vital Signs Date Time Temp Pulse Resp B/P Pulse Ox O2 Delivery O2 Flow Rate FiO2 12/25/16 11:37 98.1 94 20 125/69 100 Room Air 12/25/16 07:48 21 12/24/16 20:03 2.0 Constitutional: NAD Neurologic: CN 2-12 intact Cardiovascular: RRR, no M/R/G Respiratory: CTA Gastrointestinal: S/NT/ND Airway Exam Mallampati Score: Class II MO: full Neck: flexible ROM: full Teeth: intact Dentures: no lower, no upper Anesthesia Pre-op A/P Labs see chart Risk Assessment & Plan Assessment: ASA 2 Plan: GA with ETT significant h/o PONV scopolamine patch placed preoperatively. Status Change Before Surgery: No Pre-Antibiotics Drug: Ancef 1 gr. Given Within 1 Hr of Incision: Yes Time Given: 12:54 AIDEN CAMPBELL M.D. Dec 25, 2016 13:22
--- NOTE | 2016-12-25 14:30 | Operative Note - PDOC ---
Operative Note Operative Note Pre-op Diagnosis: Bilateral infected groin tissue Procedure: Flap closure of right groin wound with wound vac application to the left groin wound Post-op Diagnosis: same as pre-op Surgeon: Marcelino Parking Lot Attendant And Cashier: Regino Anesthesia: general Specimen: yes Complications: none Condition: stable Estimated Blood Loss: minimal Drains: wound vac Implant(s) used?: No ADDISON SIERRA Dec 25, 2016 14:30
--- NOTE | 2016-12-25 14:50 | Immediate Post-Op Evaluation ---
Immediate Post-Op Evalulation Immediate Post-Op Evalulation Procedure: Revision and partial closure of bilateral groin wounds Date of Evaluation: Dec 25, 2016 Time of Evaluation: 14:48 IV Fluids: 1200 Blood Products: none Estimated Blood Loss: 50 Urinary Output: 100 Blood Pressure Systolic: 131 Blood Pressure Diastolic: 84 Pulse Rate: 102 Respiratory Rate: 22 O2 Sat by Pulse Oximetry: 99 Temperature (Fahrenheit): 97.8 Pain Score (1-10): 2 Nausea: No Vomiting: No Complications none Patient Status: patent, extubated, none Hydration Status: adequate AIDEN CAMPBELL M.D. Dec 25, 2016 14:50
[2016-12-25] MEDS ORDERED: LR 1000ml 1,000 ML IVLG SCH (14:59)
[2016-12-25] MEDS ORDERED: fentaNYL 100 mcg/2 mL IV PRN (15:00)
[2016-12-25] MEDS ORDERED: DiphenhydrAMINE 50mg/ml Inj IVP PRN (15:00)
[2016-12-25] MEDS ORDERED: Metoclopramide 10mg/2ml Inj IVP PRN (15:00)
[2016-12-25] MEDS ORDERED: Ketorolac 30mg Inj IV PRN (15:00)
[2016-12-25] MEDS ORDERED: Midazolam 2mg/2ml Inj IVP PRN (15:00)
[2016-12-25] MEDS ORDERED: Meperidine 25mg/0.5ml Inj (FOR RIGORS ONLY) IV PRN (15:00)
[2016-12-25] MEDS ORDERED: Hydromorphone 0.5mg/0.5ml inj IVP PRN (15:00)
[2016-12-25] MEDS: PCA HYDROmorphone 1mg/ml 30 ML IV PRN (15:03)
--- NOTE | 2016-12-25 18:31 | General Progress Note ---
Hannah Sam N.P. 12/25/16 1831: Assessment/Plan Status: stable Assessment/Plan (1) Abscess Assessment & Plan: s/p wound surgery with serial flap closures on 12/22 and 12/25 Cont IV abx: Ancef Wound care per Surgery Pain control Supp care f/u cultures DVT/GI ppx monitor Hgb ICD Codes: L02.91 - Cutaneous abscess, unspecified SNOMED: [id number] Subjective Date patient seen: Dec 25, 2016 Time patient seen: 18:27 Allergies: Coded Allergies: No Known Allergies (Unverified , 12/21/16) Subjective s/p flap closure of right groin wound with wound vac application to left groin wound, POD#0 no periop or postop complications doing well, pain well controlled no nausea, vomiting, cp, sob Objective Last 24 Hour Vital Signs Date Time Temp Pulse Resp B/P Pulse Ox O2 Delivery O2 Flow Rate FiO2 12/25/16 17:23 98.7 68 20 115/66 99 Nasal Cannula 2.0 12/25/16 16:30 97.3 81 16 129/80 98 Nasal Cannula 3.0 12/25/16 16:30 18 12/25/16 16:15 15 12/25/16 16:00 80 15 126/81 100 Nasal Cannula 3.0 12/25/16 15:45 81 17 132/83 100 Nasal Cannula 3.0 12/25/16 15:45 14 12/25/16 15:33 17 12/25/16 15:30 77 19 130/76 100 Nasal Cannula 3.0 12/25/16 15:18 13 12/25/16 15:15 86 15 138/82 100 Nasal Cannula 3.0 12/25/16 15:03 15 12/25/16 15:00 88 20 119/84 100 Simple Mask 6.0 12/25/16 14:50 94 18 125/80 100 Simple Mask 6.0 12/25/16 14:50 102 22 99 12/25/16 14:40 97.8 108 22 119/84 100 Simple Mask 6.0 12/25/16 11:37 98.1 94 20 125/69 100 Room Air 12/25/16 08:00 18 12/25/16 07:48 79 18 99 Room Air 21 12/25/16 07:47 79 18 99 Room Air 21 12/25/16 07:46 Room Air 12/25/16 07:45 100.9 88 21 93/55 98 Room Air 12/25/16 07:45 99 Room Air 21 12/25/16 04:00 15 12/25/16 00:04 97.9 88 19 117/57 95 Room Air 12/25/16 00:00 16 12/24/16 20:03 88 16 Nasal Cannula 2.0 28 12/24/16 20:03 99 Nasal Cannula 2.0 28 12/24/16 20:03 Nasal Cannula 2.0 28 12/24/16 20:00 98.1 98 20 111/62 96 Room Air 12/24/16 20:00 17 Intake and Output 12/24/16 12/25/16 19:00 07:00 Intake Total 400 ml Output Total 1020 ml 1000 ml Balance -620 ml -1000 ml Intake Oral 400 ml Output Urine Total 950 ml 1000 ml Other 70 ml # Voids 1 Height (Feet): 5 Height (Inches): 5.00 Weight (Pounds): 212 General Appearance: no apparent distress EENT: PERRL/EOMI Neck: non-tender, supple Cardiovascular: normal rate, regular rhythm Respiratory/Chest: lungs clear, normal breath sounds Abdomen: hypoactive bowel sounds Extremities: normal range of motion, non-tender Neurologic: hourly shift manager II-XII grossly normal, no motor/sensory deficits Skin: normal pigmentation, warm/dry HECTOR DAVIDSON 12/27/16 1136: Assessment/Plan Assessment/Plan The patient was seen and examined at bedside and all new and available data was reviewed in the patients chart. I agree with the above findings, impression, and plan. F/U Labs F/U cultures Discuss with Dr. sheppard -PT mobility F/U with surgical Recommendation (Patient was seen earlier today. Signature timestamp does not reflect patient encounter time) Hector Davidson MD Subjective Allergies: Coded Allergies: No Known Allergies (Unverified , 12/21/16) Hannah Sam N.P. Dec 25, 2016 18:31 HECTOR DAVIDSON Dec 27, 2016 11:36
--- NOTE | 2016-12-25 20:46 | Operative Note - Dictated ---
DATE OF OPERATION: 12/25/2016 PREOPERATIVE DIAGNOSES: Bilateral open groin wounds. POSTOPERATIVE DIAGNOSIS: Bilateral open groin wounds. PROCEDURES: 1. Preparation of right groin wound for flap advancement closure. 2. Flap readvancement of anterior medial thigh flap for closure of right groin wound. 3. Reelevation of posterior thigh flap for closure of right groin wound. 4. Bilateral wound VAC placement. SURGEON: Connie Benson M.D. RESEARCH SCHOLAR: Mala Lacy M.D. ANESTHESIA: General. COMPLICATIONS: None. DRAINS: Bilateral wound VACs. DISPOSITION: Stable to the recovery room. INDICATIONS FOR SURGERY: This is a 26-year-old female with a recent history of having undergone radical excision of her bilateral groin infected tissue 72 hours ago who now presents for definitive closure of her right groin wound and wound VAC exchange on the left groin. She understands the risks and benefits of surgery and agrees to proceed. DETAILS OF THE OPERATION: The patient was brought to the operating room and laid in the lithotomy position on the operating room table. Her bilateral upper thighs and groin and lower abdominal and perineal region were prepped and draped in a sterile and usual fashion. We first began by exploring the left groin wound and we noted that there was some evidence of nonviable tissue at the distal end of the medial thigh flap that had been previously elevated. This was debrided down to a healthy bleeding tissue. After this was done, the wound was copiously irrigated with pulse lavage, and the wound was further staple closed, but left with a central opening of approximately 8 x 8 cm, which was then covered by a wound VAC sponge. The plan for this side will be to bring the patient back to the operating room for definitive flap closure within 48 hours. The right groin wound however was smaller and was amenable to flap closure. This wound was explored. A pulse lavage was used to irrigate the wound. Some of the nonviable tissue at the distal edge of the anterior medial thigh flap was debrided with a sharp scissors. The flap was then re-elevated just above the adductor fascia with perforators of the superficial femoral artery perfusing the flap. This allowed for further readvancement of the flap; however, this was not sufficient. As such, the posterior thigh flap that had been previously elevated had to be reelevated and readvanced by releasing its fascial attachments to the underlying hamstring muscles. With this done, the flaps could then be brought to the apposition for closure. The wound was copiously irrigated again with pulse lavage and the flaps were inset, brought together using #0 and 2-0 Vicryl sutures, with aileen used to close the skin. At the very corner of the wound with minimal opening of approximately 2.2 cm, I felt that there was too much tension to completely close the flaps at this area. So, it was decided that to leave this wound opened and just cover it with a small wound VAC to take the tension off the entire incision and potentially prevent from breakdown of the entire wound given the fact that there was too much tension there, and this was the discussion that I had preoperatively with the patient that should we have too much tension in any point of the incision, by bringing the flaps together, we would leave some area open to relieve the tension. As such, this was done. However, despite this, approximately 95% of the wound was closed. The wound VAC sponges that were hooked up to the machines are noted to be functioning at 150 mm of high continuous suction. The patient tolerated the procedure well and will be brought back to the operating room in 48 hours for definitive flap closure of the other side. Connie Benson M.D. DR: DANIEL JOB#: [id number] CC:
[2016-12-26 04:00] VITALS: BP 119/70
[2016-12-26] MEDS: ceFAZolin sod 1 GM in D5W 55 ML IVPB SCH ×3 (06:47→21:39)
[2016-12-26] MEDS: PCA shift volume MISC SCH ×2 (07:12→19:30)
[2016-12-26 08:00] VITALS: BP 119/53
[2016-12-26] MEDS: Montelukast 10mg tablet ORAL SCH (09:52)
[2016-12-26] MEDS: Docusate 100mg cap ORAL SCH ×2 (09:52→21:33)
[2016-12-26] MEDS: Heparin 5000 units/ml inj SUBQ SCH ×2 (10:02→21:38)
--- NOTE | 2016-12-26 10:09 | 48 Hour Post Anesthesia Eval ---
Post Anesthesia Evaluation Procedure: Revision and partial closure of bilateral groin wounds Date of Evaluation: Dec 26, 2016 Time of Evaluation: 10:08 Blood Pressure Systolic: 108 0: 56 Pulse Rate: 75 Respiratory Rate: 20 Temperature (Fahrenheit): 97.6 O2 Sat by Pulse Oximetry: 98 Airway: patent Nausea: No Vomiting: No Pain Intensity: 3 Hydration Status: adequate Cardiopulmonary Status: stable Mental Status/LOC: patient returned to baseline Follow-up Care/Observations: n/a Post-Anesthesia Complications: none Follow-up care needed: N/A AIDEN CAMPBELL M.D. Dec 26, 2016 10:09
[2016-12-26 12:00] VITALS: BP 113/59
[2016-12-26] MEDS: PCA HYDROmorphone 1mg/ml 30 ML IV PRN (15:13)
[2016-12-26 16:00] VITALS: BP 113/54
[2016-12-26] MEDS ORDERED: Magnesium Citrate Liq Btl ORAL ONE (18:45)
--- NOTE | 2016-12-26 19:38 | General Progress Note ---
Hannah Sam N.P. 12/26/16 1938: Assessment/Plan Problem List: (1) Constipation Assessment & Plan: bowel regimen meds ICD Codes: K59.00 - Constipation, unspecified SNOMED: 21519631 Status: doing well Assessment/Plan (1) Abscess Assessment & Plan: s/p wound surgery with serial flap closures on 12/22 and 12/25 doing well Cont IV abx: Ancef Wound care per Surgery Pain control Supp care f/u cultures DVT/GI ppx monitor Hgb ICD Codes: L02.91 - Cutaneous abscess, unspecified SNOMED: 289160981 Subjective Date patient seen: Dec 26, 2016 Time patient seen: 19:34 Constitutional: Denies: chills, diaphoresis, fever, malaise, no symptoms, other , weakness HEENT: Denies: blurred vision, double vision, ear discharge, ear pain, eye pain , mouth pain, mouth swelling, no symptoms, nose congestion, nose pain, other, tearing, throat pain, throat swelling Cardiovascular: Denies: chest pain, edema, irregular heart rate, lightheadedness, no symptoms, other, palpitations, syncope Respiratory: Denies: SOB at rest, SOB with excertion, cough, no symptoms, orthopnea, other, shortness of breath, sputum, stridor, wheezing Gastrointestinal/Abdominal: Denies: abdomen distended, abdominal pain, black stools, blood in stool, constipated, diarrhea, difficulty swallowing, nausea, no symptoms, other, poor appetite, poor fluid intake, rectal bleeding, tarry stools, vomiting Genitourinary: Denies: burning, discharge, flank pain, frequency, hematuria, incontinence, no symptoms, other, pain, urgency Neurologic/Psychiatric: Denies: anxiety, depressed, emotional problems, headache, no symptoms, numbness, other, paresthesia, pre-existing deficit, seizure, tingling, tremors, weakness Endocrine: Denies: excessive sweating, flushing, increased hunger, increased thirst, increased urine, intolerance to cold, intolerance to heat, no symptoms, other, unexplained weight gain, unexplained weight loss Hematologic/Lymphatic: Denies: anemia, easy bleeding, easy bruising, no symptoms, other Allergies: Coded Allergies: No Known Allergies (Unverified , 12/21/16) Subjective s/p flap closure of right groin wound with wound vac application to left groin wound, POD#1 no periop or postop complications doing well, pain well controlled no nausea, vomiting, cp, sob No bowel movement. No flatus. bowel sounds present Objective Last 24 Hour Vital Signs Date Time Temp Pulse Resp B/P Pulse Ox O2 Delivery O2 Flow Rate FiO2 12/26/16 16:00 98.2 106 18 113/54 97 Room Air 12/26/16 16:00 17 12/26/16 12:00 18 12/26/16 12:00 98.7 96 18 113/59 95 Room Air 12/26/16 11:31 75 18 89 Room Air 12/26/16 11:31 76 18 99 Room Air 12/26/16 10:09 75 20 98 12/26/16 08:00 17 12/26/16 08:00 98.2 83 18 119/53 98 Room Air 12/26/16 04:00 95 16 119/70 99 Room Air 12/26/16 04:00 15 12/26/16 00:00 15 12/25/16 20:00 100.0 119 20 131/62 99 Room Air 12/25/16 20:00 17 12/25/16 19:57 99 Room Air 21 12/25/16 19:57 Room Air Intake and Output 12/25/16 12/26/16 19:00 07:00 Intake Total 300 ml 230 ml Output Total 485 ml 1779 ml Balance -185 ml -1549 ml Intake Oral 100 ml 230 ml IV Total 200 ml Output Urine Total 380 ml 1700 ml Drainage Total 45 ml 44 ml Other 60 ml 35 ml Height (Feet): 5 Height (Inches): 5.00 Weight (Pounds): 212 General Appearance: alert EENT: PERRL/EOMI Neck: non-tender, supple Cardiovascular: normal peripheral pulses, normal rate, regular rhythm Respiratory/Chest: chest wall non-tender, lungs clear, normal breath sounds Abdomen: normal bowel sounds, non tender, soft Extremities: normal range of motion, non-tender Neurologic: 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 I agree with the above findings, impression, and plan. F/U Labs F/U cultures Discuss with Dr. Benson -PT mobility F/U with surgical Recommendation (Patient was seen earlier today. Signature timestamp does not reflect patient encounter time) Hector Davidson MD Subjective Allergies: Coded Allergies: No Known Allergies (Unverified , 12/21/16) Hannah Sam N.P. Dec 26, 2016 19:38 HECTOR DAVIDSON Dec 27, 2016 11:39
[2016-12-26 20:00] VITALS: BP 113/62
[2016-12-27] VITALS (13 sets, daily range): BP systolic 106–136; BP diastolic 56–86
[2016-12-27] MEDS: ceFAZolin sod 1 GM in D5W 55 ML IVPB SCH ×3 (05:49→20:52)
[2016-12-27] MEDS: PCA shift volume MISC SCH ×2 (07:20→19:18)
[2016-12-27] MEDS: Heparin 5000 units/ml inj SUBQ SCH ×2 (09:00→20:57)
[2016-12-27] MEDS: Docusate 100mg cap ORAL SCH ×2 (09:00→19:25)
[2016-12-27] MEDS: Montelukast 10mg tablet ORAL SCH (09:00)
[2016-12-27] MEDS ORDERED: Bacitracin 50000 Units Vial ONE (09:49)
[2016-12-27] MEDS ORDERED: Lidocaine 1% 10mg/ml/Epi 0.005mg/ml 30ml vial INJ ONE (09:49)
--- NOTE | 2016-12-27 10:47 | Anethesia Preoperative Eval ---
Anesthesia Pre-op PMH/ROS General Date of Evaluation: Dec 27, 2016 Time of Evaluation: 10:43 Anesthesiologist: Annelise ASA Score: ASA 2 Mallampati Score Class I : Soft palate, uvula, fauces, pillars visible Class II: Soft palate, uvula, fauces visible Class III: Soft palate, base of uvula visible Class IV: Only hard plate visible Mallampati Classification: Class II Surgeon: Marcelino Diagnosis: Recurrent HS Surgical Procedure: Revision of bilateral groin wounds Anesthesia History: none, PONV Family History: no anesthesia problems Allergies: Coded Allergies: No Known Allergies (Unverified , 12/21/16) Medications: see eMAR Past Medical History Cardiovascular: Denies: CAD, HTN, ME, arrhythmia, other, valve dz Pulmonary: Denies: COPD, CELESTE, asthma, other Gastrointestinal/Genitourinary: Reports: GERD - mild, Denies: CRI, ESRD, other Neurologic/Psychiatric: Reports: depression/anxiety, Denies: CVA, TIA, dementia, other Endocrine: Denies: DM, hypothyroidism, other, steroids HEENT: Denies: CIRCLE (L), CIRCLE (R), cataract (L), cataract (R), glaucoma, other Hematology/Immune: Denies: DVT, anemia, bleeding disorder, other Musculoskeletal/Integumentary: Reports: other - Recurrent HS, Denies: DDD, DJD, OA, RA, edema Other: obesity PMH Narrative: as above PSxH Narrative: HS treatment Anesthesia Pre-op Phys. Exam Physician Exam Last Vital Signs Date Time Temp Pulse Resp B/P Pulse Ox O2 Delivery O2 Flow Rate FiO2 12/27/16 08:36 95 20 99 Room Air 12/27/16 08:00 97.9 130/77 12/27/16 00:00 Constitutional: NAD Neurologic: CN 2-12 intact Cardiovascular: RRR, no M/R/G Respiratory: CTA Gastrointestinal: S/NT/ND Airway Exam Mallampati Score: Class II MO: full Neck: flexible ROM: full Teeth: intact Dentures: no lower, no upper Anesthesia Pre-op A/P Labs see chart Risk Assessment & Plan Assessment: ASA 2 Plan: GA with ETT PONV prevention Status Change Before Surgery: No Pre-Antibiotics Drug: Ancef 1 gr. Given Within 1 Hr of Incision: Yes Time Given: 11:12 AIDEN CAMPBELL M.D. Dec 27, 2016 10:46
[2016-12-27] MEDS ORDERED: Neostigmine 1mg/ml 10ml Inj ONE (11:00)
[2016-12-27] MEDS ORDERED: Succinylcholine 20mg/ml 10ml vial ONE (11:00)
[2016-12-27] MEDS ORDERED: Rate Change PCA 1 Each MISC PRN (11:00)
[2016-12-27] MEDS ORDERED: Glycopyrrolate 0.2mg/ml 1ml Vial ONE (11:00)
[2016-12-27] MEDS ORDERED: Morphine Sulfate 10mg/ml Inj ONE (11:00)
[2016-12-27] MEDS ORDERED: Zemuron 50mg/5ml Inj IV ONE (11:00)
[2016-12-27] MEDS ORDERED: Sterile Water Irrig 1000ml IRRIG ONE (11:00)
[2016-12-27] MEDS ORDERED: LR 1000ml ONE (11:00)
[2016-12-27] MEDS ORDERED: Midazolam 2mg/2ml Inj ONE (11:00)
[2016-12-27] MEDS ORDERED: Propofol 10mg/ml 20ml IV ONE (11:00)
[2016-12-27] MEDS ORDERED: Ketorolac 30mg Inj ONE (11:00)
[2016-12-27] MEDS ORDERED: NS Irrig 1000ml ONE (11:00)
[2016-12-27] MEDS ORDERED: fentaNYL 100 mcg/2 mL IV ONE (11:00)
--- NOTE | 2016-12-27 11:00 | Pre-Procedure Note/Attestation ---
Pre-Procedure Note/Attestation Complete Prior to Procedure Planned Procedure: bilateral Procedure Narrative: Left groin wound closure with wound vac placement Indications for Procedure Pre-Operative Diagnosis: Bilateral infected groin tissue Attestation I attest that I discussed the nature of the procedure; its benefits; risks and complications; and alternatives (and the risks and benefits of such alternatives ), prior to the procedure, with the patient (or the patient's legal service liaison representative). I attest that, if there was a reasonable possibility of needing a blood transfusion, the patient (or the patient's legal service liaison representative) was given the [facility] standardized written summary, pursuant to the Marlon Speedy Blood Safety Act ([place] Health and Safety Code # 1645, as amended). I attest that I re-evaluated the patient just prior to the surgery and that there has been no change in the patient's H&P, except as documented below: ADDISON SIERRA Dec 27, 2016 11:00
[2016-12-27] MEDS ORDERED: Surgicel 4in x 8in TOPIC ONE (11:40)
[2016-12-27] MEDS ORDERED: LR 1000ml 1,000 ML IVLG SCH (11:51)
[2016-12-27] MEDS ORDERED: Hydromorphone 0.5mg/0.5ml inj IVP PRN (12:00)
[2016-12-27] MEDS ORDERED: Midazolam 2mg/2ml Inj IVP PRN (12:00)
[2016-12-27] MEDS ORDERED: fentaNYL 100 mcg/2 mL IV PRN (12:00)
[2016-12-27] MEDS ORDERED: Metoclopramide 10mg/2ml Inj IVP PRN ×2 (12:00)
[2016-12-27] MEDS ORDERED: Ketorolac 30mg Inj IV PRN (12:00)
[2016-12-27] MEDS ORDERED: DiphenhydrAMINE 50mg/ml Inj IVP PRN (12:00)
[2016-12-27] MEDS ORDERED: Meperidine 25mg/0.5ml Inj (FOR RIGORS ONLY) IV PRN (12:00)
--- NOTE | 2016-12-27 12:52 | Operative Note - PDOC ---
Operative Note Operative Note Pre-op Diagnosis: Bilateral infected groin tissue Procedure: Flap closure of left groin wound with wound vac application to the both groin wounds Post-op Diagnosis: same as pre-op Surgeon: Marcelino Detail Supervisor: Regino Anesthesia: general Specimen: yes Complications: none Condition: stable Estimated Blood Loss: minimal Drains: wound vac Implant(s) used?: No ADDISON SIERRA Dec 27, 2016 12:52
--- NOTE | 2016-12-27 13:12 | Immediate Post-Op Evaluation ---
Immediate Post-Op Evalulation Immediate Post-Op Evalulation Procedure: Revision and partial closure of bilateral groin wounds Date of Evaluation: Dec 27, 2016 Time of Evaluation: 13:10 IV Fluids: 800 Blood Products: none Estimated Blood Loss: 50 Urinary Output: 100 Blood Pressure Systolic: 137 Blood Pressure Diastolic: 78 Pulse Rate: 98 Respiratory Rate: 22 O2 Sat by Pulse Oximetry: 99 Temperature (Fahrenheit): 97.6 Pain Score (1-10): 2 Nausea: No Vomiting: No Complications none Patient Status: reacts, patent, extubated Hydration Status: adequate AIDEN CAMPBELL M.D. Dec 27, 2016 13:12
[2016-12-27] MEDS: PCA HYDROmorphone 1mg/ml 30 ML IV PRN (13:27)
--- NOTE | 2016-12-27 18:14 | General Progress Note ---
Hannah Sam N.P. 12/27/16 1814: Assessment/Plan Problem List: (1) Constipation Assessment & Plan: bowel regimen meds ICD Codes: K59.00 - Constipation, unspecified SNOMED: 56783985 Assessment/Plan (1) Abscess Assessment & Plan: s/p wound surgery with serial flap closures on 12/22, 12/25, and 12/27 doing well Cont IV abx: Ancef Wound care per Surgery Pain control Supp care f/u cultures DVT/GI ppx monitor Hgb ICD Codes: L02.91 - Cutaneous abscess, unspecified SNOMED: 332456201 Subjective Date patient seen: Dec 27, 2016 Time patient seen: 18:12 Allergies: Coded Allergies: No Known Allergies (Unverified , 12/21/16) Subjective s/p flap closure of groin today, POD#0 s/p flap closure of right groin wound with wound vac application to left groin wound, POD#2 no periop or postop complications doing well, pain well controlled no nausea, vomiting, cp, sob No bowel movement. No flatus. bowel sounds present Objective Last 24 Hour Vital Signs Date Time Temp Pulse Resp B/P Pulse Ox O2 Delivery O2 Flow Rate FiO2 12/27/16 16:00 97.1 92 16 136/83 96 Nasal Cannula 2.0 12/27/16 16:00 18 12/27/16 14:30 16 12/27/16 14:30 98.0 80 16 125/63 98 Nasal Cannula 2.0 12/27/16 14:15 98.0 72 18 115/74 100 Nasal Cannula 3.0 12/27/16 14:10 18 12/27/16 14:00 69 15 130/75 100 Nasal Cannula 3.0 12/27/16 14:00 98.0 12/27/16 13:57 97.3 12/27/16 13:55 14 12/27/16 13:45 73 12 130/76 100 Nasal Cannula 3.0 12/27/16 13:40 15 12/27/16 13:30 86 14 133/72 100 Nasal Cannula 3.0 12/27/16 13:27 15 12/27/16 13:20 79 13 131/78 100 Nasal Cannula 3.0 12/27/16 13:12 79 13 133/74 100 Nasal Cannula 3.0 12/27/16 13:12 98 22 99 12/27/16 13:07 98 11 127/79 99 Simple Mask 8.0 12/27/16 13:02 97.8 116 14 135/86 99 Simple Mask 8.0 12/27/16 12:00 20 12/27/16 08:36 95 20 99 Room Air 12/27/16 08:34 97 20 98 Room Air 12/27/16 08:00 98.7 78 18 106/58 98 Room Air 12/27/16 08:00 20 12/27/16 04:00 16 12/27/16 00:00 16 12/27/16 00:00 98.2 90 18 110/56 97 Room Air 12/26/16 20:00 99.5 99 20 113/62 97 Room Air 12/26/16 20:00 16 Intake and Output 12/26/16 12/27/16 19:00 07:00 Intake Total 960 ml 800 ml Output Total 1590 ml 2165 ml Balance -630 ml -1365 ml Intake Oral 960 ml 800 ml Output Urine Total 1500 ml 2100 ml Drainage Total 40 ml 15 ml Other 50 ml 50 ml Height (Feet): 5 Height (Inches): 5.00 Weight (Pounds): 212 General Appearance: no apparent distress, alert EENT: PERRL/EOMI, normal ENT inspection Neck: non-tender, normal alignment, supple Cardiovascular: normal peripheral pulses, normal rate, regular rhythm Respiratory/Chest: chest wall non-tender, lungs clear, normal breath sounds Abdomen: normal bowel sounds, non tender, soft Extremities: normal range of motion, non-tender 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 I agree with the above findings, impression, and plan. F/U Labs F/U cultures Discuss with Surgery -PT mobility F/U with wound care Recommendation (Patient was seen earlier today. Signature timestamp does not reflect patient encounter time) Hector Davidson MD Subjective Allergies: Coded Allergies: No Known Allergies (Unverified , 12/21/16) Hannah Sam N.P. Dec 27, 2016 18:14 HECTOR DAVIDSON Dec 28, 2016 08:19
--- NOTE | 2016-12-27 18:16 | Operative Note - Dictated ---
DATE OF OPERATION: 12/27/2016 PREOPERATIVE DIAGNOSIS: Bilateral open groin wound. POSTOPERATIVE DIAGNOSIS: Bilateral open groin wound. PROCEDURE: 1. Preparation of left groin wound flap advancement closure. 2. Readvancement of the anterior medial thigh flap for closure of left groin wound. 3. Reelevation of posterior thigh flap closure of left groin wound. 4. Bilateral wound VAC placement. SURGEON: Connie Benson M.D. JOY LOADER: Mala Lacy M.D. ANESTHESIA: General. COMPLICATIONS: None. DRAINS: Included bilateral wound VACs to the groin. DISPOSITION: Stable to recovery room. INDICATIONS FOR SURGERY: This is a 26-year-old female with a recent history of having undergone radical excision of bilateral groin infected tissue and also most recently having undergone closure of her right groin wound were not present for definitive closure of her left groin wound with wound VAC change. She understands the risks and benefits of surgery and agreed to proceed. DETAILS OF THE OPERATION: The patient was brought to the operating room and laid in the lithotomy position on the operating table. Her bilateral upper thighs and groin and lower abdomen and perineal regions were prepped and draped in a sterile and usual fashion. We first began by exploring the left groin wound and we noted that there was some evidence of nonviable tissue at the distal end of the medial thigh flap that had been previously elevated. This was debrided down to healthy bleeding tissue. After this was done, the wound was copiously irrigated with pulse lavage. The wound was further stapled closed and this to see how the wound appeared with the reapproximation of the skin. Once this was done, we noted that there was a little bit more nonviable tissue at the distal edge of the anterior medial thigh flap that was debrided with a sharp scissors. The flap here was then reelevated just above the adductor fascia with perforators of the superficial femoral artery perfusing this flap. This allowed for further advancement of the flap, however, this was not sufficient. As such, the posterior thigh flap that had been previously elevated had to be reelevated somewhat and readvanced by releasing its fascial attachments to the underlying hamstring muscles. With this done, the flaps then brought to opposition for closure. The wound was again copiously irrigated on the left side with pulse lavage. The flaps were inset, brought together using #0 and 2-0 Vicryl sutures. The aileen used to close the skin. At the very corner of the wound with minimal opening of approximately 4 cm, I felt that there was too much tension to completely close the flap at this area, so it was decided that he would leave this area open and cover with a small wound VAC to take the tension off the entire incision and potentially prevent the breakdown of the entire wound and given the fact that there was too much tension there and this also was a discussion that I had preoperatively with the patient that she understood that too much tension at any point along the incision and bringing the flaps together under those conditions would compromise the wound; thus we left some area open to relieve the tension. With this done, the wound was approximately 90% to 95% closed. The wound VACs were then applied. The patient tolerated the procedure well. PLAN: The plan will be to change the wound VAC in 3 to 4 days. Connie Benson M.D. DR: ESTEBAN JOB#: [id number] CC: MERVAT
[2016-12-27] MEDS ORDERED: Zolpidem 5mg tab ORAL PRN (21:00)
[2016-12-28 04:00] VITALS: BP 124/71
[2016-12-28] MEDS: ceFAZolin sod 1 GM in D5W 55 ML IVPB SCH ×2 (05:23→15:28)
[2016-12-28] MEDS: PCA shift volume MISC SCH ×2 (07:14→19:26)
[2016-12-28 08:00] VITALS: BP 112/54
[2016-12-28] MEDS: Montelukast 10mg tablet ORAL SCH (09:00)
[2016-12-28] MEDS: Docusate 100mg cap ORAL SCH ×2 (09:00→20:19)
[2016-12-28] MEDS: Heparin 5000 units/ml inj SUBQ SCH ×2 (09:07→20:28)
--- NOTE | 2016-12-28 10:13 | 48 Hour Post Anesthesia Eval ---
Post Anesthesia Evaluation Procedure: Revision and partial closure of bilateral groin wounds Date of Evaluation: Dec 28, 2016 Time of Evaluation: 06:45 Blood Pressure Systolic: 124 0: 71 Pulse Rate: 87 Respiratory Rate: 18 Temperature (Fahrenheit): 97.4 O2 Sat by Pulse Oximetry: 98 Airway: patent Nausea: No Vomiting: No Pain Intensity: 2 Hydration Status: adequate Cardiopulmonary Status: at baseline Mental Status/LOC: patient returned to baseline Post-Anesthesia Complications: 0 Follow-up care needed: N/A - further care as per primary team CORAL UGARTE M.D. Dec 28, 2016 10:13
[2016-12-28 12:00] VITALS: BP 127/56
--- NOTE | 2016-12-28 12:20 | General Progress Note ---
Progress Note Progress Note Pt seen and examined. POD# 1from left groin wound closure. Doing well and wound vac are functioning. Both thigh flaps are unchanged with distal mottling about the same. Discussed at length with patient and her mother the possible need for flap debridement in those areas in 48 hours with wound vac placement. They clearly understood and we will reassess over the weekend the possible need to do this on Saturday. Stable for now. MD RIGO Figueroa AMIR Dec 28, 2016 12:20
[2016-12-28] MEDS: PCA HYDROmorphone 1mg/ml 30 ML IV PRN (13:19)
[2016-12-28 16:00] VITALS: BP 110/58
--- NOTE | 2016-12-28 17:03 | General Progress Note ---
Assessment/Plan Problem List: (1) Constipation Assessment & Plan: bowel regimen meds ICD Codes: K59.00 - Constipation, unspecified SNOMED: 78030028 Status: doing well Assessment/Plan (1) Abscess Assessment & Plan: s/p wound surgery with serial flap closures on 12/22, 12/25, and 12/27 doing well Cont IV abx: Ancef Wound care per Surgery Pain control Supp care f/u cultures DVT/GI ppx monitor Hgb ICD Codes: L02.91 - Cutaneous abscess, unspecified SNOMED: 242469002 Subjective Allergies: Coded Allergies: No Known Allergies (Unverified , 12/21/16) Subjective s/p debridement and flap closure to groin no periop or postop complications doing well, pain well controlled no nausea, vomiting, cp, sob No bowel movement. + flatus. bowel sounds present Objective Last 24 Hour Vital Signs Date Time Temp Pulse Resp B/P Pulse Ox O2 Delivery O2 Flow Rate FiO2 12/28/16 12:00 18 12/28/16 12:00 99.3 86 19 127/56 97 Room Air 12/28/16 10:13 87 18 98 12/28/16 08:39 82 18 95 Room Air 12/28/16 08:35 82 18 95 Room Air 12/28/16 08:00 99.0 87 18 112/54 95 Room Air 12/28/16 08:00 18 12/28/16 04:00 97.4 87 18 124/71 98 Room Air 12/28/16 04:00 18 12/28/16 00:00 18 12/27/16 20:00 18 12/27/16 20:00 98.2 100 16 125/62 98 Room Air Intake and Output 12/27/16 12/28/16 19:00 07:00 Intake Total 1360 ml 1000 ml Output Total 470 ml 2120 ml Balance 890 ml -1120 ml Intake Oral 360 ml 1000 ml IV Total 1000 ml Output Urine Total 350 ml 2000 ml Drainage Total 70 ml 80 ml Estimated Blood Loss 50 ml Other 40 ml Height (Feet): 5 Height (Inches): 5.00 Weight (Pounds): 212 General Appearance: no apparent distress, alert EENT: PERRL/EOMI, normal ENT inspection Neck: non-tender, normal alignment, supple Cardiovascular: normal peripheral pulses, normal rate, regular rhythm Respiratory/Chest: chest wall non-tender, lungs clear, normal breath sounds Abdomen: normal bowel sounds, non tender, soft Neurologic: button bradder II-XII grossly normal, no motor/sensory deficits Skin: normal pigmentation, warm/dry Hannah Sam N.P. Dec 28, 2016 17:03
[2016-12-28 20:00] VITALS: BP 135/68
[2016-12-28] MEDS: Miralax 17gm pkt ORAL PRN (20:18)
[2016-12-29 06:00] VITALS: BP 118/69
--- NOTE | 2016-12-29 07:21 | General Progress Note ---
Assessment/Plan Problem List: (1) Abscess ICD Codes: L02.91 - Cutaneous abscess, unspecified SNOMED: 955238736 (2) Hidradenitis suppurativa ICD Codes: L73.2 - Hidradenitis suppurativa SNOMED: 65067484 (3) Abdominal cramping ICD Codes: R10.9 - Unspecified abdominal pain SNOMED: 15855547 Status: stable Assessment/Plan - Appreciate surgery rec's - s/p radical excision of bilateral infected groin tissue with flap elevation and wound vac placement on 12/22 - s/p wound surgery with serial flap closures 12/25 and 12/27 - cont wound care per surgery - Cont IV abx: ancef - F/u cultures - Plan for OR on Sat for debridement with wound vac placement - Encourage mobilization/ambulation - Encourage incentive spirometry to optimize pulmonary hygiene - DVT/GI prophylaxis as appropriate - ctm CBC and hemodynamics - ctm electrolytes, adjust/replete prn - pain control, supportive care, bowel regimen A total of 31min of additional time was spent in addition to normal encounter time for care/coordination and counseling. D/w pt, RN, surgery regarding mgmt and dispo. Subjective Date patient seen: Dec 29, 2016 Time patient seen: 07:21 ROS Limited/Unobtainable: No Constitutional: Reports: no symptoms HEENT: Reports: no symptoms Cardiovascular: Reports: no symptoms Respiratory: Reports: no symptoms Gastrointestinal/Abdominal: Reports: no symptoms Genitourinary: Reports: no symptoms Neurologic/Psychiatric: Reports: no symptoms Endocrine: Reports: no symptoms Hematologic/Lymphatic: Reports: no symptoms Allergies: Coded Allergies: No Known Allergies (Unverified , 12/21/16) All Systems: reviewed and negative except above Subjective Pt doing well Pain controlled Denies f/c, n/v, d/c, chest pain, SOB Ambulating C/o some lower back pain which is improved w/ ambulation Awaiting OR on Mon Objective Last 24 Hour Vital Signs Date Time Temp Pulse Resp B/P Pulse Ox O2 Delivery O2 Flow Rate FiO2 12/29/16 06:00 98.2 87 20 118/69 100 Room Air 12/29/16 04:00 19 12/29/16 00:00 17 12/28/16 23:00 97.9 12/28/16 20:00 100.0 100 19 135/68 100 Room Air 12/28/16 20:00 18 12/28/16 16:00 99.1 90 19 110/58 100 Room Air 12/28/16 16:00 19 12/28/16 12:00 18 12/28/16 12:00 99.3 86 19 127/56 97 Room Air 12/28/16 10:13 87 18 98 12/28/16 08:39 82 18 95 Room Air 12/28/16 08:35 82 18 95 Room Air 12/28/16 08:00 99.0 87 18 112/54 95 Room Air 12/28/16 08:00 18 Intake and Output 12/28/16 12/29/16 19:00 07:00 Intake Total 1500 ml Output Total 2975 ml 1540 ml Balance -1475 ml -1540 ml Intake Oral 1500 ml Output Urine Total 2950 ml 1450 ml Drainage Total 20 ml Other 25 ml 70 ml Height (Feet): 5 Height (Inches): 5.00 Weight (Pounds): 212 Objective General: alert, cooperative, no distress, appears stated age Head: normocephalic, without obvious abnormality, atraumatic Eyes: conjunctivae/corneas clear. PERRL, EOM's intact Throat: lips, mucosa, and tongue normal. MMM Neck: supple, symmetrical, trachea midline, and no JVD Lungs: clear to auscultation bilaterally Heart: regular rate and rhythm, S1, S2 normal, no murmur, click, rub or gallop Abdomen: soft, non-tender, non-distended, bowel sounds normal; no masses or organomegaly Extremities: extremities normal, atraumatic, no cyanosis or edema Pulses: 2+ and symmetric Skin: skin color, texture, turgor normal; no rashes or lesions Neurologic: grossly normal, no focal deficits Kirk Conner M.D. Dec 29, 2016 07:21
[2016-12-29 08:00] VITALS: BP 113/58
[2016-12-29] MEDS: Docusate 100mg cap ORAL SCH ×2 (08:40→19:56)
[2016-12-29] MEDS: Montelukast 10mg tablet ORAL SCH (08:40)
[2016-12-29] MEDS: Heparin 5000 units/ml inj SUBQ SCH ×2 (08:45→19:57)
[2016-12-29] MEDS ORDERED: Tubing IV Secondary IV ONE ×2 (09:42→15:30)
[2016-12-29] MEDS ORDERED: Rate Change PCA 1 Each MISC PRN (10:30)
[2016-12-29] MEDS ORDERED: Naloxone 0.4mg/ml Inj IV PRN (10:30)
[2016-12-29] MEDS: PCA HYDROmorphone 1mg/ml 30 ML IV PRN (11:26)
[2016-12-29 12:10] VITALS: BP 117/57
[2016-12-29 16:00] VITALS: BP 130/70
[2016-12-29] MEDS: PCA shift volume MISC SCH (18:53)
[2016-12-29 20:00] VITALS: BP 113/72
[2016-12-30] VITALS: BP 110/71
[2016-12-30 04:00] VITALS: BP 109/58
[2016-12-30] MEDS: PCA shift volume MISC SCH ×2 (07:09→18:57)
[2016-12-30 08:00] VITALS: BP 104/56
[2016-12-30] MEDS: Montelukast 10mg tablet ORAL SCH (09:03)
[2016-12-30] MEDS: Docusate 100mg cap ORAL SCH ×2 (09:03→20:37)
[2016-12-30] MEDS: Heparin 5000 units/ml inj SUBQ SCH ×2 (09:17→20:37)
[2016-12-30 12:00] VITALS: BP 115/60
--- NOTE | 2016-12-30 12:01 | General Progress Note ---
Assessment/Plan Problem List: (1) Abscess ICD Codes: L02.91 - Cutaneous abscess, unspecified SNOMED: 593836128 (2) Hidradenitis suppurativa ICD Codes: L73.2 - Hidradenitis suppurativa SNOMED: 63999912 (3) Lower back pain Assessment & Plan: likely 2/2 MSK strain ICD Codes: M54.5 - Low back pain SNOMED: 570046135 Status: stable Assessment/Plan - Appreciate surgery rec's - s/p radical excision of bilateral infected groin tissue with flap elevation and wound vac placement on 12/22 - s/p wound surgery with serial flap closures 12/25 and 12/27 - cont wound care per surgery - Cont IV abx: ancef - F/u cultures - Plan for OR on Sat for debridement with wound vac placement - Encourage mobilization/ambulation - Encourage incentive spirometry to optimize pulmonary hygiene - DVT/GI prophylaxis as appropriate - ctm CBC and hemodynamics - ctm electrolytes, adjust/replete prn - pain control, supportive care, bowel regimen A total of 32min of additional time was spent in addition to normal encounter time for care/coordination and counseling. D/w pt, RN, surgery regarding mgmt and dispo. Subjective Date patient seen: Dec 30, 2016 Time patient seen: 12:00 ROS Limited/Unobtainable: No Constitutional: Reports: no symptoms HEENT: Reports: no symptoms Cardiovascular: Reports: no symptoms Respiratory: Reports: no symptoms Gastrointestinal/Abdominal: Reports: no symptoms Genitourinary: Reports: no symptoms Neurologic/Psychiatric: Reports: no symptoms Endocrine: Reports: no symptoms Hematologic/Lymphatic: Reports: no symptoms Allergies: Coded Allergies: No Known Allergies (Unverified , 12/21/16) All Systems: reviewed and negative except above Subjective Pt doing well Pain controlled Denies f/c, n/v, d/c, chest pain, SOB Ambulating C/o some lower back pain which is improved w/ ambulation Awaiting OR on Sat Objective Last 24 Hour Vital Signs Date Time Temp Pulse Resp B/P Pulse Ox O2 Delivery O2 Flow Rate FiO2 12/30/16 09:49 80 16 99 Room Air 12/30/16 09:45 80 16 99 Room Air 12/30/16 08:39 86 18 Room Air 12/30/16 08:00 98.1 75 18 104/56 99 Room Air 12/30/16 08:00 18 12/30/16 04:00 98.2 77 18 109/58 98 Room Air 12/30/16 00:00 17 12/30/16 00:00 99.1 94 18 110/71 98 Room Air 12/29/16 20:00 99.2 88 18 113/72 99 Room Air 12/29/16 20:00 17 12/29/16 16:00 97.9 97 20 130/70 99 Room Air 12/29/16 16:00 18 12/29/16 12:10 99.0 88 20 117/57 98 Room Air Intake and Output 12/29/16 12/30/16 19:00 07:00 Intake Total 950 ml 350 ml Output Total 1470 ml 1734 ml Balance -520 ml -1384 ml Intake Oral 950 ml 350 ml Output Urine Total 1300 ml 1700 ml Drainage Total 170 ml 4 ml Other 30 ml Height (Feet): 5 Height (Inches): 5.00 Weight (Pounds): 212 Objective General: alert, cooperative, no distress, appears stated age Head: normocephalic, without obvious abnormality, atraumatic Eyes: conjunctivae/corneas clear. PERRL, EOM's intact Throat: lips, mucosa, and tongue normal. MMM Neck: supple, symmetrical, trachea midline, and no JVD Lungs: clear to auscultation bilaterally Heart: regular rate and rhythm, S1, S2 normal, no murmur, click, rub or gallop Abdomen: soft, non-tender, non-distended, bowel sounds normal; no masses or organomegaly Extremities: extremities normal, atraumatic, no cyanosis or edema Pulses: 2+ and symmetric Skin: skin color, texture, turgor normal; no rashes or lesions Neurologic: grossly normal, no focal deficits Kirk Conner M.D. Dec 30, 2016 12:01
[2016-12-30] MEDS: PCA HYDROmorphone 1mg/ml 30 ML IV PRN (12:13)
[2016-12-30 16:08] VITALS: BP 102/55
[2016-12-30 20:00] VITALS: BP 113/71
[2016-12-31] VITALS (11 sets, daily range): BP systolic 100–117; BP diastolic 50–65
[2016-12-31] MEDS: PCA shift volume MISC SCH ×2 (07:12→19:45)
--- NOTE | 2016-12-31 08:12 | Pre-Procedure Note/Attestation ---
Pre-Procedure Note/Attestation Complete Prior to Procedure Planned Procedure: bilateral Procedure Narrative: Bilateral groin wound debridement and wound vac change Indications for Procedure Pre-Operative Diagnosis: Bilateral infected groin tissue Attestation I attest that I discussed the nature of the procedure; its benefits; risks and complications; and alternatives (and the risks and benefits of such alternatives ), prior to the procedure, with the patient (or the patient's legal in home sales representative). I attest that, if there was a reasonable possibility of needing a blood transfusion, the patient (or the patient's legal in home sales representative) was given the [facility] standardized written summary, pursuant to the Marlon Speedy Blood Safety Act ([place] Health and Safety Code # 1645, as amended). I attest that I re-evaluated the patient just prior to the surgery and that there has been no change in the patient's H&P, except as documented below: ADDISON SIERRA Dec 31, 2016 08:12
[2016-12-31] MEDS: Montelukast 10mg tablet ORAL SCH (09:00)
[2016-12-31] MEDS: Heparin 5000 units/ml inj SUBQ SCH ×2 (09:00→20:40)
[2016-12-31] MEDS: Docusate 100mg cap ORAL SCH ×2 (09:00→20:33)
[2016-12-31] MEDS ORDERED: Lidocaine 1% 10mg/ml/Epi 0.005mg/ml 30ml vial INJ ONE (09:41)
[2016-12-31] MEDS ORDERED: Bacitracin 50000 Units Vial ONE (09:41)
[2016-12-31] MEDS ORDERED: NS Irrig 1000ml ONE (10:00)
[2016-12-31] MEDS ORDERED: Morphine Sulfate 10mg/ml Inj ONE (10:00)
[2016-12-31] MEDS ORDERED: Sterile Water Irrig 1000ml IRRIG ONE (10:00)
[2016-12-31] MEDS ORDERED: Midazolam 2mg/2ml Inj ONE (10:00)
[2016-12-31] MEDS ORDERED: fentaNYL 100 mcg/2 mL IV ONE (10:00)
[2016-12-31] MEDS ORDERED: LR 1000ml ONE (10:00)
[2016-12-31] MEDS ORDERED: Propofol 10mg/ml 20ml IV ONE (10:00)
[2016-12-31] MEDS ORDERED: Metoclopramide 10mg/2ml Inj ONE (10:00)
[2016-12-31] MEDS ORDERED: Ketorolac 30mg Inj ONE (10:00)
[2016-12-31] MEDS ORDERED: Lidocaine 1% MPF 10mg/ml 5ml ONE (10:00)
[2016-12-31] MEDS ORDERED: fentaNYL 100 mcg/2 mL IV PRN (10:15)
[2016-12-31] MEDS ORDERED: Metoclopramide 10mg/2ml Inj IVP PRN (10:15)
--- NOTE | 2016-12-31 10:18 | Anethesia Preoperative Eval ---
Anesthesia Pre-op PMH/ROS General Date of Evaluation: Dec 31, 2016 Time of Evaluation: 10:15 Anesthesiologist: josé antonio ASA Score: ASA 2 Mallampati Score Class I : Soft palate, uvula, fauces, pillars visible Class II: Soft palate, uvula, fauces visible Class III: Soft palate, base of uvula visible Class IV: Only hard plate visible Mallampati Classification: Class II Surgeon: valarie Diagnosis: HS Surgical Procedure: Bilateral Groin washouts and wound vac Anesthesia History: none Family History: no anesthesia problems Allergies: Coded Allergies: No Known Allergies (Unverified , 12/21/16) Medications: see eMAR Past Medical History Cardiovascular: Denies: CAD, HTN, DC, arrhythmia, other, valve dz Pulmonary: Denies: COPD, CELESTE, asthma, other Gastrointestinal/Genitourinary: Denies: CRI, ESRD, GERD, other Neurologic/Psychiatric: Denies: CVA, TIA, dementia, depression/anxiety, other Endocrine: Denies: DM, hypothyroidism, other, steroids HEENT: Denies: [place] (L), [place] (R), cataract (L), cataract (R), glaucoma, other Hematology/Immune: Denies: DVT, anemia, bleeding disorder, other Musculoskeletal/Integumentary: Denies: DDD, DJD, OA, RA, edema, other Other: obesity, other - Hidradenitis suppurativa PSxH Narrative: multiple washouts Anesthesia Pre-op Phys. Exam Physician Exam Last Vital Signs Date Time Temp Pulse Resp B/P Pulse Ox O2 Delivery O2 Flow Rate FiO2 12/31/16 08:00 18 12/31/16 04:00 99.7 97 112/50 95 Room Air 12/27/16 16:00 2.0 12/27/16 00:00 Constitutional: NAD Neurologic: CN 2-12 intact Cardiovascular: RRR Respiratory: CTA Gastrointestinal: S/NT/ND Airway Exam Mallampati Score: Class II MO: full ROM: full Dentures: no lower, no upper Anesthesia Pre-op A/P Studies Pre-op Studies: EKG - sr Risk Assessment & Plan Plan: general Status Change Before Surgery: No Pre-Antibiotics Drug: ancef 2 g Given Within 1 Hr of Incision: Yes Time Given: 10:00 JOSE RENEE CRNA Dec 31, 2016 10:18
[2016-12-31] MEDS ORDERED: Rate Change PCA 1 Each MISC PRN (10:30)
[2016-12-31] MEDS ORDERED: PCA HYDROmorphone 1mg/ml 30 ML IV PRN (10:30)
--- NOTE | 2016-12-31 10:34 | Operative Note - PDOC ---
Operative Note Operative Note Pre-op Diagnosis: Bilateral open groin wounds Procedure: Debridement of bilateral groin wounds and wound vac placement Post-op Diagnosis: same as pre-op Surgeon: Marcelino Anesthesia: general Specimen: yes Complications: none Condition: stable Estimated Blood Loss: minimal Drains: wound vac Implant(s) used?: No ADDISON SIERRA Dec 31, 2016 10:34
--- NOTE | 2016-12-31 12:36 | Anethesia Preoperative Eval ---
Anesthesia Pre-op PMH/ROS General Date of Evaluation: Dec 31, 2016 Time of Evaluation: 09:50 ASA Score: ASA 2 Mallampati Score Class I : Soft palate, uvula, fauces, pillars visible Class II: Soft palate, uvula, fauces visible Class III: Soft palate, base of uvula visible Class IV: Only hard plate visible Mallampati Classification: Class II Surgeon: valarie Diagnosis: HS Surgical Procedure: Bilateral groin wound washout Anesthesia History: none Family History: no anesthesia problems Allergies: Coded Allergies: No Known Allergies (Unverified , 12/21/16) Medications: see eMAR Past Medical History Cardiovascular: Denies: CAD, HTN, GA, arrhythmia, other, valve dz Pulmonary: Denies: COPD, CELESTE, asthma, other Gastrointestinal/Genitourinary: Denies: CRI, ESRD, GERD, other Neurologic/Psychiatric: Denies: CVA, TIA, dementia, depression/anxiety, other Endocrine: Denies: DM, hypothyroidism, other, steroids HEENT: Denies: [place] (L), [place] (R), cataract (L), cataract (R), glaucoma, other Hematology/Immune: Denies: DVT, anemia, bleeding disorder, other Musculoskeletal/Integumentary: Denies: DDD, DJD, OA, RA, edema, other Other: obesity, other - HS PSxH Narrative: multiple wound washouts Anesthesia Pre-op Phys. Exam Physician Exam Last Vital Signs Date Time Temp Pulse Resp B/P Pulse Ox O2 Delivery O2 Flow Rate FiO2 12/31/16 11:50 98.0 12/31/16 11:49 102 20 104/54 94 Room Air 12/31/16 11:00 6.0 12/27/16 00:00 Constitutional: NAD Neurologic: CN 2-12 intact Cardiovascular: RRR Respiratory: CTA Gastrointestinal: S/NT/ND Airway Exam Mallampati Score: Class II MO: full ROM: full Dentures: no lower, no upper Anesthesia Pre-op A/P Studies Pre-op Studies: EKG - sr Risk Assessment & Plan Plan: general Status Change Before Surgery: No Pre-Antibiotics Drug: ancef Given Within 1 Hr of Incision: Yes Time Given: 10:00 JOSE RENEE CRNA Dec 31, 2016 12:36
--- NOTE | 2016-12-31 12:37 | 48 Hour Post Anesthesia Eval ---
Post Anesthesia Evaluation Procedure: Revision and partial closure of bilateral groin wounds Date of Evaluation: Dec 31, 2016 Time of Evaluation: 12:37 Blood Pressure Systolic: 106 0: 56 Pulse Rate: 97 Respiratory Rate: 14 O2 Sat by Pulse Oximetry: 100 Airway: patent Nausea: No Vomiting: No Hydration Status: adequate Cardiopulmonary Status: stable Mental Status/LOC: patient returned to baseline Post-Anesthesia Complications: none Follow-up care needed: N/A JOSE RENEE CRNA Dec 31, 2016 12:37
--- NOTE | 2016-12-31 12:39 | Immediate Post-Op Evaluation ---
Immediate Post-Op Evalulation Immediate Post-Op Evalulation Procedure: Groin washout Date of Evaluation: Dec 31, 2016 Time of Evaluation: 10:40 IV Fluids: 600 Blood Pressure Systolic: 106 Blood Pressure Diastolic: 65 Pulse Rate: 100 Respiratory Rate: 14 O2 Sat by Pulse Oximetry: 100 Temperature (Fahrenheit): 98.8 Nausea: No Vomiting: No Complications stable Patient Status: awake, reacts, patent Hydration Status: adequate Drug: ancef Given Within 1 Hr of Incision: Yes Time Given: 10:00 JOSE RENEE CRNA Dec 31, 2016 12:39
--- NOTE | 2016-12-31 12:45 | Operative Note - Dictated ---
DATE OF OPERATION: 12/31/2016 PREOPERATIVE DIAGNOSIS: Bilateral open groin wound. POSTOPERATIVE DIAGNOSIS: Bilateral open groin wound. PROCEDURES: 1. Bilateral groin wound debridement. 2. Bilateral groin wound VAC placement. SURGEON: Connie Benson M.D. CATERER'S AIDE: None. ANESTHESIA: General. COMPLICATIONS: None. DRAINS: Included bilateral groin wound VACs. DISPOSITION: Stable to the recovery room. INDICATIONS FOR SURGERY: This is a 26-year-old female, who was undergone multiple procedures and now presenting to the operating room today for debridement of bilateral groin wounds with wound VAC placement. She has previously undergone bilateral groin reconstruction and 4 days ago, underwent wound VAC placement. There is some areas in the flap that had ischemic changes which will require debridement and wound VAC change. She understands the risks and benefits of surgery and agrees to proceed. DETAILS OF THE OPERATION: The patient was brought to the operating room and laid in the lithotomy position on the operating table. Bilateral groins were prepped and draped in a sterile and usual fashion. We began first by using a marking pen to delineate the areas of the marginal tissue that needed to be debrided on both sides. Once this was done, a #15 blade was then used to make the skin incision and electrocautery was used to remove the underlying subcutaneous and fat tissue on the left side in a similar fashion. On the contralateral side, on the right groin wound, a large area had to be debrided of the nonviable tissue down to punctate bleeding, which were encounter after we debrided the tissue. The defect that resulted on both sides were approximately the same measuring approximately 6 x 5 cm on both sides. Hemostasis was achieved. After pulse lavage irrigation, bilateral wound VACs were placed and set to 150 mmHg of high continuous suction and the plan will be to perform bedside wound VAC change and the patient to undergo outpatient wound VAC changes. Connie Benson M.D. DR: ESTEBAN JOB#: [id number] CC:
--- NOTE | 2016-12-31 17:14 | General Progress Note ---
Assessment/Plan Problem List: (1) Abscess ICD Codes: L02.91 - Cutaneous abscess, unspecified SNOMED: 740980647 (2) Hidradenitis suppurativa ICD Codes: L73.2 - Hidradenitis suppurativa SNOMED: 76460951 (3) Lower back pain Assessment & Plan: likely 2/2 MSK strain ICD Codes: M54.5 - Low back pain SNOMED: 575643145 Status: stable Assessment/Plan - Appreciate surgery rec's - s/p radical excision of bilateral infected groin tissue with flap elevation and wound vac placement on 12/22 - s/p wound surgery with serial flap closures 12/25 and 12/27 - s/p bilateral groin wound debridement and bilateral groin wound VAC placement today - cont wound care per surgery - Cont IV abx: ancef - F/u cultures - Encourage mobilization/ambulation - Encourage incentive spirometry to optimize pulmonary hygiene - DVT/GI prophylaxis as appropriate - ctm CBC and hemodynamics - ctm electrolytes, adjust/replete prn - pain control, supportive care, bowel regimen A total of 31min of additional time was spent in addition to normal encounter time for care/coordination and counseling. D/w pt, RN, surgery regarding mgmt and dispo. Subjective Date patient seen: Dec 31, 2016 Time patient seen: 17:12 ROS Limited/Unobtainable: No Constitutional: Reports: no symptoms HEENT: Reports: no symptoms Cardiovascular: Reports: no symptoms Respiratory: Reports: no symptoms Gastrointestinal/Abdominal: Reports: no symptoms Genitourinary: Reports: no symptoms Neurologic/Psychiatric: Reports: no symptoms Endocrine: Reports: no symptoms Hematologic/Lymphatic: Reports: no symptoms Allergies: Coded Allergies: No Known Allergies (Unverified , 12/21/16) Subjective s/p bilateral groin wound debridement and bilateral groin wound VAC placement today Pt doing well Pain controlled Denies f/c, n/v, d/c, chest pain, SOB Ambulating C/o some lower back pain which is improved w/ ambulation Objective Last 24 Hour Vital Signs Date Time Temp Pulse Resp B/P Pulse Ox O2 Delivery O2 Flow Rate FiO2 12/31/16 12:39 100 14 100 12/31/16 12:37 97 14 100 12/31/16 12:00 19 12/31/16 11:50 98.0 12/31/16 11:49 100.4 102 20 104/54 94 Room Air 12/31/16 11:45 23 12/31/16 11:32 98.0 98 23 106/56 96 Room Air 12/31/16 11:30 24 12/31/16 11:20 22 12/31/16 11:15 98 21 102/57 100 Room Air 12/31/16 11:00 95 23 100/53 100 Simple Mask 6.0 12/31/16 10:45 98 22 104/53 100 Simple Mask 6.0 12/31/16 10:40 103 21 111/54 100 Simple Mask 6.0 12/31/16 10:35 98.8 119 22 106/65 100 Simple Mask 6.0 12/31/16 10:17 Room Air 12/31/16 10:17 Room Air 12/31/16 08:00 18 12/31/16 04:00 99.7 97 18 112/50 95 Room Air 12/31/16 04:00 16 12/31/16 00:00 100.9 96 18 111/56 99 Room Air 12/31/16 00:00 20 12/30/16 21:26 92 92 12/30/16 20:00 20 12/30/16 20:00 98.5 109 18 113/71 100 Room Air Intake and Output 12/30/16 12/31/16 19:00 07:00 Intake Total 800 ml 280 ml Output Total 1005 ml 1415 ml Balance -205 ml -1135 ml Intake Oral 800 ml 280 ml Output Urine Total 1000 ml 1200 ml Drainage Total 5 ml 5 ml Other 210 ml Height (Feet): 5 Height (Inches): 5.00 Weight (Pounds): 212 Objective General: alert, cooperative, no distress, appears stated age Head: normocephalic, without obvious abnormality, atraumatic Eyes: conjunctivae/corneas clear. PERRL, EOM's intact Throat: lips, mucosa, and tongue normal. MMM Neck: supple, symmetrical, trachea midline, and no JVD Lungs: clear to auscultation bilaterally Heart: regular rate and rhythm, S1, S2 normal, no murmur, click, rub or gallop Abdomen: soft, non-tender, non-distended, bowel sounds normal; no masses or organomegaly Extremities: extremities normal, atraumatic, no cyanosis or edema Pulses: 2+ and symmetric Skin: skin color, texture, turgor normal; no rashes or lesions Neurologic: grossly normal, no focal deficits Kirk Conner M.D. Dec 31, 2016 17:14
[2016-12-31] MEDS ORDERED: Zolpidem 5mg tab ORAL PRN (21:00)
[2017-01-01] MEDS: PCA shift volume MISC SCH (07:03)
[2017-01-01] MEDS ORDERED: ceFAZolin 2gm/50ml Premix 50 ML IV SCH (07:30)
[2017-01-01 08:00] VITALS: BP 104/55
[2017-01-01] MEDS: ceFAZolin sod 1 GM in D5W 55 ML IVPB SCH ×3 (08:35→21:35)
[2017-01-01] MEDS: Montelukast 10mg tablet ORAL SCH (08:35)
[2017-01-01] MEDS: Docusate 100mg cap ORAL SCH ×2 (08:35→21:36)
[2017-01-01] MEDS: Heparin 5000 units/ml inj SUBQ SCH ×2 (08:46→21:45)
[2017-01-01] MEDS ORDERED: Norco 10mg/325mg tab ORAL PRN ×2 (11:30)
[2017-01-01 12:00] VITALS: BP 111/61
--- NOTE | 2017-01-01 16:35 | General Progress Note ---
Assessment/Plan Problem List: (1) Abscess ICD Codes: L02.91 - Cutaneous abscess, unspecified SNOMED: 854744040 (2) Hidradenitis suppurativa ICD Codes: L73.2 - Hidradenitis suppurativa SNOMED: 46214418 (3) Lower back pain Assessment & Plan: likely 2/2 MSK strain ICD Codes: M54.5 - Low back pain SNOMED: 472804326 Status: stable Assessment/Plan - Appreciate surgery rec's - s/p radical excision of bilateral infected groin tissue with flap elevation and wound vac placement on 12/22 - s/p wound surgery with serial flap closures 12/25 and 12/27 - s/p bilateral groin wound debridement and bilateral groin wound VAC placement on 12/31 - cont wound care per surgery - Cont IV abx: ancef - F/u cultures - Encourage mobilization/ambulation - Encourage incentive spirometry to optimize pulmonary hygiene - DVT/GI prophylaxis as appropriate - ctm CBC and hemodynamics - ctm electrolytes, adjust/replete prn - pain control, supportive care, bowel regimen - home health ordered - DC planning, likely A total of 31min of additional time was spent in addition to normal encounter time for care/coordination and counseling. D/w pt, RN, surgery regarding mgmt and dispo. Subjective Date patient seen: Jan 01, 2017 Time patient seen: 16:34 ROS Limited/Unobtainable: No Constitutional: Reports: no symptoms HEENT: Reports: no symptoms Cardiovascular: Reports: no symptoms Respiratory: Reports: no symptoms Gastrointestinal/Abdominal: Reports: no symptoms Genitourinary: Reports: no symptoms Neurologic/Psychiatric: Reports: no symptoms Endocrine: Reports: no symptoms Hematologic/Lymphatic: Reports: no symptoms Allergies: Coded Allergies: No Known Allergies (Unverified , 12/21/16) All Systems: reviewed and negative except above Subjective s/p bilateral groin wound debridement and bilateral groin wound VAC placement yesterday, POD#1 Pt doing well Pain controlled Denies f/c, n/v, d/c, chest pain, SOB Ambulating C/o some lower back pain which is improved w/ ambulation Objective Last 24 Hour Vital Signs Date Time Temp Pulse Resp B/P Pulse Ox O2 Delivery O2 Flow Rate FiO2 01/01/17 12:00 98.4 99 19 111/61 97 Room Air 01/01/17 09:16 79 16 99 Room Air 01/01/17 09:16 77 18 97 Room Air 01/01/17 08:00 19 01/01/17 08:00 97.7 67 19 104/55 98 Room Air 01/01/17 07:30 98.2 01/01/17 04:00 18 12/31/16 20:00 18 12/31/16 20:00 98.6 86 20 117/63 98 Room Air Intake and Output 12/31/16 01/01/17 19:00 07:00 Intake Total 900 ml 240 ml Output Total 945 ml 1175 ml Balance -45 ml -935 ml Intake Oral 200 ml 240 ml IV Total 700 ml Output Urine Total 900 ml 1150 ml Estimated Blood Loss 10 ml Other 35 ml 25 ml # Voids 1 Height (Feet): 5 Height (Inches): 5.00 Weight (Pounds): 212 Objective General: alert, cooperative, no distress, appears stated age Head: normocephalic, without obvious abnormality, atraumatic Eyes: conjunctivae/corneas clear. PERRL, EOM's intact Throat: lips, mucosa, and tongue normal. MMM Neck: supple, symmetrical, trachea midline, and no JVD Lungs: clear to auscultation bilaterally Heart: regular rate and rhythm, S1, S2 normal, no murmur, click, rub or gallop Abdomen: soft, non-tender, non-distended, bowel sounds normal; no masses or organomegaly Extremities: extremities normal, atraumatic, no cyanosis or edema Pulses: 2+ and symmetric Skin: skin color, texture, turgor normal; no rashes or lesions Neurologic: grossly normal, no focal deficits Kirk Conner M.D. Jan 01, 2017 16:35
[2017-01-01 20:00] VITALS: BP 119/65
[2017-01-01] MEDS: Cyclobenzaprine 10mg Tab ORAL PRN (20:02)
[2017-01-02] VITALS (7 sets, daily range): BP systolic 101–121; BP diastolic 54–65
[2017-01-02] MEDS: ceFAZolin sod 1 GM in D5W 55 ML IVPB SCH ×3 (05:44→21:23)
[2017-01-02] MEDS: Montelukast 10mg tablet ORAL SCH (08:31)
[2017-01-02] MEDS: Docusate 100mg cap ORAL SCH ×2 (08:31→21:23)
[2017-01-02] MEDS: Heparin 5000 units/ml inj SUBQ SCH ×2 (08:34→21:30)
--- NOTE | 2017-01-02 15:22 | Wound Nurse Progress Note ---
Wound RN Progress Note Wound Consult Wound vac changed per dr. sheppard order. left and right groin wound sites were cleansed well and pat dried. noted full thickness pink wound bed to left and right inner groin area. right groin 5.0mx5.0cm left groin 8.0x8.0cm both sites noted with copious amount of serosanguineous drainage. skin barrier film applied to surrounding skin for protection. applied wound vac as ordered per MD. [facility] paste to small areas on intact skin to assist with leak not covering any surgical site. left and right wound vac now with complete seal and no leak at this time with proper suction of foam noted. ALEX WHITE Jan 02, 2017 15:22
--- NOTE | 2017-01-02 15:22 | General Progress Note ---
Assessment/Plan Problem List: (1) Abscess ICD Codes: L02.91 - Cutaneous abscess, unspecified SNOMED: 745310147 (2) Hidradenitis suppurativa ICD Codes: L73.2 - Hidradenitis suppurativa SNOMED: 61644050 (3) Lower back pain Assessment & Plan: likely 2/2 MSK strain ICD Codes: M54.5 - Low back pain SNOMED: 505216244 Assessment/Plan - Appreciate surgery rec's - s/p radical excision of bilateral infected groin tissue with flap elevation and wound vac placement on 12/22 - s/p wound surgery with serial flap closures 12/25 and 12/27 - s/p bilateral groin wound debridement and bilateral groin wound VAC placement on 12/31 - cont wound care per surgery - Cont IV abx: ancef - F/u cultures - Encourage mobilization/ambulation - Encourage incentive spirometry to optimize pulmonary hygiene - DVT/GI prophylaxis as appropriate - ctm CBC and hemodynamics - ctm electrolytes, adjust/replete prn - pain control, supportive care, bowel regimen - home health ordered - DC planning, likely A total of 31min of additional time was spent in addition to normal encounter time for care/coordination and counseling. D/w pt, RN, surgery regarding mgmt and dispo. Subjective Date patient seen: Jan 02, 2017 Time patient seen: 15:22 ROS Limited/Unobtainable: No Constitutional: Reports: no symptoms HEENT: Reports: no symptoms Cardiovascular: Reports: no symptoms Respiratory: Reports: no symptoms Gastrointestinal/Abdominal: Reports: no symptoms Genitourinary: Reports: no symptoms Neurologic/Psychiatric: Reports: no symptoms Endocrine: Reports: no symptoms Hematologic/Lymphatic: Reports: no symptoms Allergies: Coded Allergies: No Known Allergies (Unverified , 12/21/16) All Systems: reviewed and negative except above Subjective s/p bilateral groin wound debridement and bilateral groin wound VAC placement POD#2 Pt doing well Pain controlled Denies f/c, n/v, d/c, chest pain, SOB Ambulating C/o some lower back pain which is improved w/ ambulation Objective Last 24 Hour Vital Signs Date Time Temp Pulse Resp B/P Pulse Ox O2 Delivery O2 Flow Rate FiO2 01/02/17 13:34 98.2 01/02/17 12:23 98.2 92 20 121/57 98 Room Air 01/02/17 09:10 Room Air 01/02/17 09:10 Room Air 01/02/17 08:08 96.9 89 20 106/58 98 Room Air 01/02/17 04:00 97.7 81 18 107/59 98 Room Air 01/02/17 00:00 98.4 91 17 119/65 100 Room Air 01/01/17 20:00 98.1 95 18 119/65 100 Room Air Intake and Output 01/01/17 01/02/17 19:00 07:00 Intake Total 600 ml Output Total 50 ml 60 ml Balance 550 ml -60 ml Intake Oral 600 ml Other 50 ml 60 ml # Voids 4 Height (Feet): 5 Height (Inches): 5.00 Weight (Pounds): 212 Objective General: alert, cooperative, no distress, appears stated age Head: normocephalic, without obvious abnormality, atraumatic Eyes: conjunctivae/corneas clear. PERRL, EOM's intact Throat: lips, mucosa, and tongue normal. MMM Neck: supple, symmetrical, trachea midline, and no JVD Lungs: clear to auscultation bilaterally Heart: regular rate and rhythm, S1, S2 normal, no murmur, click, rub or gallop Abdomen: soft, non-tender, non-distended, bowel sounds normal; no masses or organomegaly Extremities: extremities normal, atraumatic, no cyanosis or edema Pulses: 2+ and symmetric Skin: skin color, texture, turgor normal; no rashes or lesions Neurologic: grossly normal, no focal deficits Kirk Conner M.D. Jan 02, 2017 15:22
[2017-01-02] MEDS ORDERED: NORCO 5-325 TA1 EACH ORAL (15:50)
[2017-01-02] MEDS ORDERED: DILAUDID2 MG ORAL (15:50)
[2017-01-02] MEDS ORDERED: HYDROC (15:50)
[2017-01-02] MEDS ORDERED: KEFLEX500 MG ORAL (15:50)
[2017-01-02] MEDS ORDERED: COLACE100 MG ORAL (15:50)
[2017-01-02] MEDS ORDERED: CYCLOBENZAPRINE10 MG ORAL (15:50)
--- NOTE | 2017-01-02 19:29 | Diagnostic Imaging Report ---
APPROVED REPORT CPT Code: 00936 Present Symptoms Comments: Numbness R/O DVT Hx of Hidradenitis Post op groin area dressings (BLE) BILATERAL: Imaging reveals a patent deep venous system bilaterally. There is no evidence of thrombus within the mid to distal femoral, popliteal or tibial segments. The greater saphenous veins are also within normal limits. Doppler indicates normal spontaneous flow within these segments. Unable to assess the common and proximal femoral veins, due to dressings (BLE).
[2017-01-02] MEDS: Cyclobenzaprine 10mg Tab ORAL PRN (21:34)
[2017-01-02] MEDS: Cephalexin 500mg cap ORAL SCH (22:28)
[2017-01-03 04:00] VITALS: BP 108/51
[2017-01-03] MEDS: Cephalexin 500mg cap ORAL SCH (06:00)
[2017-01-03] MEDS: Docusate 100mg cap ORAL SCH (09:26)
[2017-01-03] MEDS: Heparin 5000 units/ml inj SUBQ SCH (09:31)
[2017-01-03] MEDS: Montelukast 10mg tablet ORAL SCH (09:59)
--- NOTE | 2017-01-03 21:52 | Discharge Summary ---
Discharge Summary Hospital Course Date of Admission Dec 21, 2016 at 17:37 Date of Discharge Jan 03, 2017 at 14:00 Admitting Diagnosis hidradinitis supperitiva w/ abscesses HPI 26 y/o female with hx of hidradenitis suppurativa, presents to the ED with c/o bilateral groin and R axillary lesions, painful to touch. Pt is s/p previous groin resection a month ago, however it was limited, and her disease has progressed. she has been on multiple abx in the past and on humira without significant improvement. She did not have any complications from cardio/pulm standpoint or from gen anesthesia with her last surgery. Pt saw her surgeon today in clinic and was sent to ED due to concern for possible abscess Consultations Plastic surgery Procedures - s/p radical excision of bilateral infected groin tissue with flap elevation and wound vac placement on 12/22 - s/p wound surgery with serial flap closures 12/25 and 12/27 - s/p bilateral groin wound debridement and bilateral groin wound VAC placement on 12/31 Hospital Course Pt was admitted and placed on IV antibiotics. She underwent radical excision of bilateral infected groin tissue with flap elevation and wound vac placement on , then further wound surgery with serial flap closures 12/25 and 12/27, and finally bilateral groin wound debridement and bilateral groin wound VAC placement on 12/31. Pt tolerated these procedures well. Once pain controlled and wounds improving, pt was discharged home with PO antibiotics and home health for wound care. Discharge Medications New Medications: Cephalexin* (Keflex*) 500 Mg Capsule 500 MG ORAL Q6H for 7 Days, #28 CAP 0 Refills Hydrocodone Bit/Acetaminophen 5-325* ([place] 5-325*) 1 Each Tablet 1 TAB ORAL Q6H PRN, #30 TAB 0 Refills Hydromorphone HCl (Dilaudid) 2 Mg Tablet 2 MG ORAL Q6HR PRN, #30 TAB 0 Refills severe pain [hydroc] () Cyclobenzaprine Hcl* (Flexeril*) 10 Mg Tablet 10 MG ORAL TIDPRN PRN, #30 TAB Docusate Sodium* (Colace*) 100 Mg Capsule 100 MG ORAL EVERY 12 HOURS, #30 CAP Discharge Condition Upon Discharge: stable Discharge Disposition Patient was discharged to Home with Home Health() Discharge Diagnoses: (1) Hidradenitis suppurativa (2) Abscess (3) Abdominal cramping (4) Constipation (5) Lower back pain Kirk Conner M.D. Jan 03, 2017 21:52
== END 2017-01-03 14:00 | disposition home health service (06) | DRG 574 ==
LOC: EMR 15:45 → 3E 17:37 → EDBEDREQ 17:48
PROC: 0JDC0ZZ Extraction of Pelvic Region Subcutaneous Tissue and Fascia, Open Approach (ICD-10-PCS; principal; 2016-12-22 08:00)
PROC: 0J8L0ZZ Division of Right Upper Leg Subcutaneous Tissue and Fascia, Open Approach (ICD-10-PCS; principal; 2016-12-22 08:00)
PROC: 0JBC0ZZ Excision of Pelvic Region Subcutaneous Tissue and Fascia, Open Approach (ICD-10-PCS; principal; 2016-12-22 08:00)
PROC: 2W17X6Z Compression of Left Inguinal Region using Pressure Dressing (ICD-10-PCS; principal; 2016-12-22 08:00)
PROC: 2W16X6Z Compression of Right Inguinal Region using Pressure Dressing (ICD-10-PCS; principal; 2016-12-22 08:00)
PROC: 0J8M0ZZ Division of Left Upper Leg Subcutaneous Tissue and Fascia, Open Approach (ICD-10-PCS; principal; 2016-12-22 08:00)
PROC: 0JDC0ZZ Extraction of Pelvic Region Subcutaneous Tissue and Fascia, Open Approach (ICD-10-PCS; 2016-12-25)
PROC: 2W16X6Z Compression of Right Inguinal Region using Pressure Dressing (ICD-10-PCS; 2016-12-25)
PROC: 0JXC0ZC Transfer Pelvic Region Subcutaneous Tissue and Fascia with Skin, Subcutaneous Tissue and Fascia, Open Approach (ICD-10-PCS; 2016-12-25)
PROC: 0J8L0ZZ Division of Right Upper Leg Subcutaneous Tissue and Fascia, Open Approach (ICD-10-PCS; 2016-12-25)
PROC: 0J8M0ZZ Division of Left Upper Leg Subcutaneous Tissue and Fascia, Open Approach (ICD-10-PCS; 2016-12-27)
PROC: 0JDC0ZZ Extraction of Pelvic Region Subcutaneous Tissue and Fascia, Open Approach (ICD-10-PCS; 2016-12-27)
PROC: 0JXC0ZC Transfer Pelvic Region Subcutaneous Tissue and Fascia with Skin, Subcutaneous Tissue and Fascia, Open Approach (ICD-10-PCS; 2016-12-27)
PROC: 2W17X6Z Compression of Left Inguinal Region using Pressure Dressing (ICD-10-PCS; 2016-12-27)
PROC: 2W16X6Z Compression of Right Inguinal Region using Pressure Dressing (ICD-10-PCS; 2016-12-27)
PROC: 2W16X6Z Compression of Right Inguinal Region using Pressure Dressing (ICD-10-PCS; 2016-12-30)
PROC: 2W17X6Z Compression of Left Inguinal Region using Pressure Dressing (ICD-10-PCS; 2016-12-30)
PROC: 0JDC0ZZ Extraction of Pelvic Region Subcutaneous Tissue and Fascia, Open Approach (ICD-10-PCS; 2016-12-30)
DX: L02.214 Cutaneous abscess of groin (principal); L02.411 Cutaneous abscess of right axilla; L73.2 Hidradenitis suppurativa; K59.00 Constipation, unspecified; R10.9 Unspecified abdominal pain; M54.5 Low back pain
CPT/HCPCS: 36415; 80048; 81025; 85025; 85610; 85730; 93970; 94003; 94150; 94640; 94664; 94760; J2180; J2250; J2405; J2710; J2765

== ENCOUNTER 2017-01-21 12:54 | Inpatient (IN) | payer OTHER ==
[~2017-01-21] VITALS: Ht 165.1 cm; Wt 96.2 kg
[~2017-01-21 12:54] MED LIST: COLACE100 MG ORAL; CYCLOBENZAPRINE10 MG ORAL; DEPO-PROVE150 MG/1 M IM; DILAUDID2 MG ORAL; HYDROC; IBUPROFEN600 MG ORAL; KEFLEX500 MG ORAL; LEVOCETIRIZINE D5 MG ORAL; MONTELUKAST SOD10 MG ORAL; NATURAL THYROID PO; NORCO 5-325 TA1 EACH ORAL; PROAIR HFA8.5 GM INH; SINGULAIR10 MG ORAL; SYMBICORT 16010.2 G1 IH; SYMBICORT INH
--- NOTE | 2017-01-21 13:51 | Emergency Room Report ---
History of Present Illness General Chief Complaint: General Complaint Source: Patient Present Illness HPI 26YOF here for admission/surgery with Dr Benson for known bilateral inner thigh hidradenitis had last surgery 1 month prior then debridement This surgery for additional debridement Denies fever/chills + foul smelling discharge has asthma, no other medical problems Feels well otherwise Not on Abx currently Allergies: Coded Allergies: No Known Allergies (Unverified , 12/21/16) Patient History Past Medical History: asthma Past Surgical History: none Pertinent Family History: none Social History: Denies: alcohol use, drug use, smoking Last Menstrual Period: bcp Now: No Immunizations: UTD Reviewed Nursing Documentation: PMH: Agreed, PSxH: Agreed Nursing Documentation-PMH Past Medical History: No History, Except For Hx Asthma: Yes Hx Cancer: No Hx Gastrointestinal Problems: No Hx Neurological Problems: No Review of Systems All Other Systems: negative except mentioned in HPI Physical Exam Vital Signs Date Time Temp Pulse Resp B/P Pulse Ox O2 Delivery O2 Flow Rate FiO2 01/21/17 13:03 98.1 101 18 106/68 98 Room Air Sp02 EP Interpretation: reviewed, normal General Appearance: normal inspection, well appearing, no apparent distress, alert, GCS 15, non-toxic Head: normocephalic, atraumatic Eyes: bilateral eye EOMI, bilateral eye PERRL ENT: normal ENT inspection, hearing grossly normal, normal voice Neck: normal inspection, full range of motion, supple, no bony tend Respiratory: normal inspection, lungs clear, normal breath sounds, no respiratory distress, no retraction, no wheezing Cardiovascular #1: regular rate, rhythm, no edema Gastrointestinal: normal inspection, normal bowel sounds, non tender, soft, no guarding, no hernia Genitourinary: no CVA tenderness Musculoskeletal: normal inspection, back normal, normal range of motion, Tony' s Sign negative Neurologic: normal inspection, alert, oriented x3, responsive, radioactive waste disposal dispatcher III-XII nml as tested, motor strength/tone normal, speech normal Psychiatric: normal inspection, judgement/insight normal, mood/affect normal Skin: other - Bilateral inner thighs with multiple bandages taped. Full exam deferred at request of patient who doesnt want to remove bandages. Obvious malodor emanating Medical Decision Making Diagnostic Impression: Primary Impression: Hidradenitis suppurativa ER Course VSS. Afebrile. Labs pending at time of endorsement/signout ECG, CXR unremarkable Endorsed to Dr Lagunas for Dr Torres at 150pm Med/surg admission EKG Diagnostic Results Rate: normal Rhythm: NSR ST Segments: no acute changes ASA given to the pt in ED: No Chest X-Ray Diagnostic Results Chest X-Ray Diagnostic Results : Chest X-Ray Ordered: Yes # of Views/Limited/Complete: 1 View Indication: Other - Pre-op EP Interpretation: Yes Interpretation: no consolidation, no pneumothorax, no acute cardiopulmonary disease Impression: No acute disease Interpreting ER Provider: Dr Lewis Hernandez MD Last Vital Signs Date Time Temp Pulse Resp B/P Pulse Ox O2 Delivery O2 Flow Rate FiO2 01/21/17 13:03 98.1 101 18 106/68 98 Room Air Status: improved Disposition: ADMITTED INPATIENT Condition: Stable LEWIS HERNANDEZ M.D. Jan 21, 2017 13:51
[2017-01-21 14:15] LABS: APPEARANCE,URINE CLOUDY; KETONES,URINE NEGATIVE (NEGATIVE); LEUKOCYTE ESTERASE ,URINE 3+ (NEGATIVE); NITRITE,URINE NEGATIVE (NEGATIVE); PH,URINE 6 (4.5-8.0); PROTEIN,URINE 1+ (NEGATIVE); UROBILINOGEN,URINE NORMAL MG/DL (0.0-1.0)
[2017-01-21 14:18] LABS: BASOPHILS % (AUTO) 1.1 % (0.0-2.0); EOSINOPHILS % (AUTO) 3.7 % (0.0-3.0); LYMPHOCYTES % (AUTO) 42.9 % (20.0-45.0); MEAN CORPUSCULAR HEMOGLOBIN 26.5 PG (27.0-31.0); MEAN CORPUSCULAR HGB CONC 30.2 G/DL (32.0-36.0); MEAN CORPUSCULAR VOLUME 88 FL (80-99); MEAN PLATELET VOLUME 6.6 FL (6.5-10.1); MONOCYTES % (AUTO) 10.2 % (1.0-10.0); NEUTROPHILS % (AUTO) 42.2 % (45.0-75.0); PLATELET COUNT 378 K/UL (150-450); RED BLOOD COUNT 3.73 M/UL (4.20-5.40); WHITE BLOOD COUNT 9.3 K/UL (4.8-10.8)
[2017-01-21 14:23] LABS: BACTERIA,URINE MODERATE /HPF; SQUAMOUS EPITHELIAL CELL,UR FEW /LPF (NONE/OCC)
[2017-01-21 14:28] LABS: ALANINE AMINOTRANSFERASE 35 U/L (3-33); ALBUMIN/GLOBULIN RATIO 0.9 (1.0-2.7); ANION GAP 13 (5-15); ASPARTATE AMINO TRANSFERASE 14 U/L (5-40); CALCIUM 9.7 mg/dL (8.6-10.2); CARBON DIOXIDE 24 mEQ/L (20-30); CHLORIDE 101 mEQ/L (98-107); CREATININE 0.7 mg/dL (0.5-0.9); GLOMERULAR FILTRATION RATE > 60 mL/min (>60); HEMOLYSIS 0; POTASSIUM 4.2 mEQ/L (3.4-4.9); SODIUM 138 mEQ/L (135-145); TOTAL PROTEIN 7.9 g/dL (6.6-8.7)
[2017-01-21 14:29] LABS: INR 1.1 (0.9-1.1); PROTHROMBIN TIME 11.4 SEC (9.30-11.50)
--- NOTE | 2017-01-21 14:41 | Diagnostic Imaging Report ---
Indication: Dyspnea Comparison: None A single view chest radiograph was obtained. Findings: Cardiomediastinal appearance is within normal limits for age. Pulmonary vascularity is appropriate. The diaphragmatic contour is smooth and costophrenic angles are sharp. No pleural effusions are identified. The bones are unremarkable. Impression: No acute findings
[2017-01-21] MEDS ORDERED: Morphine Sulfate 2mg/ml Inj IVP PRN (14:45)
[2017-01-21] MEDS ORDERED: Miralax 17gm pkt ORAL PRN (14:45)
[2017-01-21] MEDS ORDERED: Zolpidem 5mg tab ORAL PRN (14:45)
[2017-01-21] MEDS ORDERED: Milk of Magnesia 30ml Ud ORAL PRN (14:45)
[2017-01-21] MEDS ORDERED: Mylanta II UD 30ml ORAL PRN (14:45)
[2017-01-21] MEDS ORDERED: LORazepam 1mg tab ORAL PRN (14:45)
[2017-01-21] MEDS ORDERED: Morphine Sulfate 4mg/ml Inj IVP PRN (14:45)
--- NOTE | 2017-01-21 14:50 | History and Physical ---
History of Present Illness General Date patient seen: Jan 21, 2017 Time patient seen: 14:50 Reason for Hospitalization: wound dehisensce Present Illness HPI 26 y/o female with hx of hidradenitis suppurativa s/p recent debridement, flap closure and wound vac placement to wounds of b/l inner thigh/groin who presents to the ED with c/o wounds reopening with increased drainage. Pt with recent admission 12/21-01/03 where she underwent radical excision of bilateral infected groin tissue with flap elevation and wound vac placement on 12/22, then further wound surgery with serial flap closures 12/25 and 12/27, and finally bilateral groin wound debridement and bilateral groin wound VAC placement on 12/31. Pt returned home to [place]. She has been getting daily wound care. Pt states wound vac's came out on own. She then noted wounds reopening w/ increased malodorous and purulent drainage. Denies fevers/chills, nausea/vomiting, chest pain, SOB. C/o constipation and has been taking colace. Some blood in stool associated with straining and constipation but no active bleeding. Denies abd pain, hemorrhoids. Has not been needing to take any pain meds. Pt tolerated anesthesia well last admission. No new cardiopulmonary events. Allergies: Coded Allergies: No Known Allergies (Unverified , 12/21/16) Medication History Scheduled Budesonide/Formoterol Fumarate (Symbicort 160-4.5 Mcg Inhaler), 2 PUFF IH DAILY, (Reported) Cephalexin* (Keflex*), 500 MG ORAL Q6H Docusate Sodium* (Colace*), 100 MG ORAL EVERY 12 HOURS Levocetirizine Dihydrochloride (Levocetirizine Dihydrochloride), 5 MG ORAL DAILY , (Reported) Montelukast Sodium* (Montelukast Sodium*), Unknown Dose ORAL DAILY, (Reported) Scheduled PRN Albuterol Sulfate* (Proair Hfa*), 1 PUFF INH Q6H PRN for Bronchospasm, (Reported ) Cyclobenzaprine Hcl* (Flexeril*), 10 MG ORAL TIDPRN PRN Hydrocodone Bit/Acetaminophen 5-325* ([place] 5-325*), 1 TAB ORAL Q6H PRN Hydromorphone HCl (Dilaudid), 2 MG ORAL Q6HR PRN Ibuprofen* (Motrin*), 400 MG ORAL for For Pain, (Reported) Miscellaneous Medications Medroxyprogesterone Acetate (Depo-Provera), 150 MG IM, (Reported) [hydroc] Patient History History Provided By: Patient, Family Member Healthcare decision maker Mother Resuscitation status FULL CODE Advanced Directive on File Past Medical/Surgical History Past Medical/Surgical History: (1) Hidradenitis suppurativa Family History Family History: Patient reports no known family medical history. Social History Social History: (1) No significant social history Review of Systems Constitutional: Reports: no symptoms Eye: Reports: no symptoms Respiratory: Reports: no symptoms Cardiovascular: Reports: no symptoms Gastrointestinal: Reports: constipation Genitourinary: Reports: no symptoms Musculoskeletal: Reports: muscle pain Skin: Reports: no symptoms Psychiatric: Reports: no symptoms Neurological: Reports: no symptoms Endocrine: Reports: no symptoms Hematologic/Lymphatic: Reports: no symptoms Physical Exam Physical Exam Narrative General: alert, cooperative, no distress, appears stated age Head: normocephalic, without obvious abnormality, atraumatic Eyes: conjunctivae/corneas clear. PERRL, EOM's intact Throat: lips, mucosa, and tongue normal. MMM Neck: supple, symmetrical, trachea midline, and no JVD Lungs: clear to auscultation bilaterally Heart: regular rate and rhythm, S1, S2 normal, no murmur, click, rub or gallop Abdomen: soft, non-tender, non-distended, bowel sounds normal; no masses or organomegaly Extremities: extremities normal, atraumatic, no cyanosis or edema B/l inner thigh/groin dressings w/ some purulent and malodorous drainage Pulses: 2+ and symmetric Skin: skin color, texture, turgor normal; no rashes or lesions Neurologic: grossly normal, no focal deficits Last 24 Hour Vital Signs Date Time Temp Pulse Resp B/P Pulse Ox O2 Delivery O2 Flow Rate FiO2 01/21/17 13:03 98.1 101 18 106/68 98 Room Air Laboratory Tests Test 01/21/17 13:50 01/21/17 14:00 White Blood Count 9.3 K/UL (4.8-10.8) Red Blood Count 3.73 M/UL (4.20-5.40) L Hemoglobin 9.9 G/DL (12.0-16.0) L Hematocrit 32.7 % (37.0-47.0) L Mean Corpuscular Volume 88 FL (80-99) Mean Corpuscular Hemoglobin 26.5 PG (27.0-31.0) L Mean Corpuscular Hemoglobin Concent 30.2 G/DL (32.0-36.0) L Red Cell Distribution Width 13.0 % (11.6-14.8) Platelet Count 378 K/UL (150-450) Mean Platelet Volume 6.6 FL (6.5-10.1) Neutrophils (%) (Auto) 42.2 % (45.0-75.0) L Lymphocytes (%) (Auto) 42.9 % (20.0-45.0) Monocytes (%) (Auto) 10.2 % (1.0-10.0) H Eosinophils (%) (Auto) 3.7 % (0.0-3.0) H Basophils (%) (Auto) 1.1 % (0.0-2.0) Prothrombin Time 11.4 SEC (9.30-11.50) Prothromb Time International Ratio 1.1 (0.9-1.1) Activated Partial Thromboplast Time 29 SEC (23-33) Sodium Level 138 mEQ/L (135-145) Potassium Level 4.2 mEQ/L (3.4-4.9) Chloride Level 101 mEQ/L (98-107) Carbon Dioxide Level 24 mEQ/L (20-30) Anion Gap 13 (5-15) Blood Urea Nitrogen 8 mg/dL (7-23) Creatinine 0.7 mg/dL (0.5-0.9) Estimat Glomerular Filtration Rate > 60 mL/min (>60) Glucose Level 86 mg/dL (74-106) Calcium Level 9.7 mg/dL (8.6-10.2) Total Bilirubin < 0.2 mg/dL (0.0-1.2) Aspartate Amino Transf (AST/SGOT) 14 U/L (5-40) Alanine Aminotransferase (ALT/SGPT) 35 U/L (3-33) H Alkaline Phosphatase 65 U/L (35-104) Total Protein 7.9 g/dL (6.6-8.7) Albumin 3.8 g/dL (3.5-5.2) Globulin 4.1 g/dL Albumin/Globulin Ratio 0.9 (1.0-2.7) L Urine Color Yellow Urine Appearance Cloudy Urine pH 6 (4.5-8.0) Urine Specific [place] 1.015 (1.005-1.035) Urine Protein 1+ (NEGATIVE) H Urine Glucose (UA) Negative (NEGATIVE) Urine Ketones Negative (NEGATIVE) Urine Occult Blood 3+ (NEGATIVE) H Urine Nitrite Negative (NEGATIVE) Urine Bilirubin Negative (NEGATIVE) Urine Urobilinogen Normal MG/DL (0.0-1.0) Urine Leukocyte Esterase 3+ (NEGATIVE) H Urine RBC 10-15 /HPF (0 - 2) H Urine WBC 5-10 /HPF (0 - 2) H Urine Squamous Epithelial Cells Few /LPF (NONE/OCC) Urine Bacteria Moderate /HPF (NONE) H Urine HCG, Qualitative Negative Height (Feet): 5 Height (Inches): 5.00 Weight (Pounds): 212 Assessment/Plan Problem List: (1) Wound dehiscence ICD Codes: T81.30XA - Disruption of wound, unspecified, initial encounter SNOMED: 038465353 (2) Hidradenitis suppurativa ICD Codes: L73.2 - Hidradenitis suppurativa SNOMED: 81758749 (3) Acute blood loss anemia ICD Codes: D62 - Acute posthemorrhagic anemia SNOMED: 581925264 (4) Blood in stool ICD Codes: K92.1 - Melena SNOMED: 69237168, 183802403 (5) Constipation ICD Codes: K59.00 - Constipation, unspecified SNOMED: 56334360 Status: stable Assessment/Plan Admit inpt Plastic surgery consulted Check blood cultures x 2 Empiric ancef Wound care per surgery Check iron panel, ferritin--if iron deficient, will order IV venofer Monitor stools/BMs for signs of bleeding. If persistent, consider GI consult Trend CBC Pain control, bowel regimen Supportive care If patient is required to have surgery, based on the patient's medical history, and other available ancillary data, the patient is a LOW risk for an INTERMEDIATE risk procedure. Per the most recent ACC/AHA guidelines, the patient does not need any further cardiopulmonary testing prior to the procedure and there do not appear to be any clear medical contraindications to proceeding with the proposed procedure. Discussed with RN, pt/family, surgery regarding mgmt and disposition. Kirk Conner M.D. Jan 21, 2017 14:50
[2017-01-21 14:54] VITALS: BP 112/64
[2017-01-21] MEDS ORDERED: Albuterol 90mcg Inhaler 8gm INH PRN (15:00)
[2017-01-21] MEDS ORDERED: Cyclobenzaprine 10mg Tab ORAL PRN (15:00)
[2017-01-21 15:58] LABS: HEMOLYSIS 44; IRON 21 ug/dL (37-145); TOTAL IRON BINDING CAPACITY 277 ug/dL (250-400)
[2017-01-21] MEDS ORDERED: ceFAZolin 1gm/50ml Premix 50 ML IV SCH (16:00)
[2017-01-21] MEDS: ceFAZolin sod 1 GM in D5W 55 ML IVPB SCH ×2 (16:00→23:00)
[2017-01-21 16:05] VITALS: BP 117/70
[2017-01-21 16:06] LABS: FERRITIN 148 ng/mL (13-150)
[2017-01-21 20:00] VITALS: BP 121/65
[2017-01-21] MEDS: Docusate 100mg cap ORAL SCH (20:03)
[2017-01-21] MEDS ORDERED: Iron Sucrose 100 MG in NS 55 ML IV SCH (23:00)
[2017-01-22] VITALS (14 sets, daily range): BP systolic 102–130; BP diastolic 53–78
[2017-01-22] MEDS: ceFAZolin sod 1 GM in D5W 55 ML IVPB SCH ×3 (05:28→21:47)
[2017-01-22 06:11] LABS: BASOPHILS % (AUTO) 1.2 % (0.0-2.0); EOSINOPHILS % (AUTO) 4.2 % (0.0-3.0); LYMPHOCYTES % (AUTO) 42.3 % (20.0-45.0); MEAN CORPUSCULAR HEMOGLOBIN 27.9 PG (27.0-31.0); MEAN CORPUSCULAR HGB CONC 32.1 G/DL (32.0-36.0); MEAN CORPUSCULAR VOLUME 87 FL (80-99); MEAN PLATELET VOLUME 6.8 FL (6.5-10.1); MONOCYTES % (AUTO) 10.7 % (1.0-10.0); NEUTROPHILS % (AUTO) 41.6 % (45.0-75.0); PLATELET COUNT 377 K/UL (150-450); RED BLOOD COUNT 3.56 M/UL (4.20-5.40); RED CELL DISTRIBUTION WIDTH 12.8 % (11.6-14.8); WHITE BLOOD COUNT 8.5 K/UL (4.8-10.8)
[2017-01-22 06:53] LABS: ANION GAP 15 (5-15); CALCIUM 9.6 mg/dL (8.6-10.2); CARBON DIOXIDE 21 mEQ/L (20-30); CHLORIDE 103 mEQ/L (98-107); CREATININE 0.6 mg/dL (0.5-0.9); GLOMERULAR FILTRATION RATE > 60 mL/min (>60); HEMOLYSIS 0; POTASSIUM 4.3 mEQ/L (3.4-4.9); SODIUM 139 mEQ/L (135-145)
[2017-01-22] MEDS: Montelukast 10mg tablet ORAL SCH (08:11)
[2017-01-22] MEDS: Docusate 100mg cap ORAL SCH ×2 (08:11→21:00)
[2017-01-22] MEDS ORDERED: Surgicel 4in x 8in TOPIC ONE ×3 (10:51→13:45)
[2017-01-22] MEDS ORDERED: Bacitracin 50000 Units Vial ONE (10:51)
[2017-01-22] MEDS ORDERED: Lidocaine 1% 10mg/ml/Epi 0.005mg/ml 30ml vial INJ ONE (10:51)
--- NOTE | 2017-01-22 11:42 | Pre-Procedure Note/Attestation ---
Pre-Procedure Note/Attestation Complete Prior to Procedure Planned Procedure: bilateral Procedure Narrative: Bilateral groin and thigh wound derbidement with partial closure and wound vac placement Attestation I attest that I discussed the nature of the procedure; its benefits; risks and complications; and alternatives (and the risks and benefits of such alternatives ), prior to the procedure, with the patient (or the patient's legal territory sales representative). I attest that, if there was a reasonable possibility of needing a blood transfusion, the patient (or the patient's legal territory sales representative) was given the [facility] standardized written summary, pursuant to the Marlon Speedy Blood Safety Act ([place] Health and Safety Code # 1645, as amended). I attest that I re-evaluated the patient just prior to the surgery and that there has been no change in the patient's H&P, except as documented below: ADDISON SIERRA Jan 22, 2017 11:42
[2017-01-22] MEDS ORDERED: Zolpidem 5mg tab ORAL PRN (11:45)
[2017-01-22] MEDS ORDERED: TransDerm Scop 1mg/72HR Patch TDERMAL ONE (11:59)
[2017-01-22] MEDS ORDERED: Midazolam 2mg/2ml Inj ONE (12:00)
[2017-01-22] MEDS ORDERED: LR 1000ml ONE (12:00)
[2017-01-22] MEDS ORDERED: Ketorolac 30mg Inj ONE (12:00)
[2017-01-22] MEDS ORDERED: Morphine Sulfate 10mg/ml Inj ONE (12:00)
[2017-01-22] MEDS ORDERED: Glycopyrrolate 0.2mg/ml 1ml Vial ONE (12:00)
[2017-01-22] MEDS ORDERED: fentaNYL 100 mcg/2 mL IV ONE (12:00)
[2017-01-22] MEDS ORDERED: Zemuron 50mg/5ml Inj IV ONE (12:00)
[2017-01-22] MEDS ORDERED: Neostigmine 1mg/ml 10ml Inj ONE (12:00)
[2017-01-22] MEDS ORDERED: NS Irrig 1000ml ONE (12:00)
[2017-01-22] MEDS ORDERED: Sterile Water Irrig 1000ml IRRIG ONE (12:00)
[2017-01-22] MEDS ORDERED: Succinylcholine 20mg/ml 10ml vial ONE (12:00)
[2017-01-22] MEDS ORDERED: Propofol 10mg/ml 20ml IV ONE (12:09)
[2017-01-22] MEDS ORDERED: LR 1000ml 1,000 ML IVLG SCH (13:23)
--- NOTE | 2017-01-22 13:23 | Anethesia Preoperative Eval ---
Anesthesia Pre-op PMH/ROS General Date of Evaluation: Jan 22, 2017 Time of Evaluation: 12:10 Anesthesiologist: Annelise ASA Score: ASA 3 Mallampati Score Class I : Soft palate, uvula, fauces, pillars visible Class II: Soft palate, uvula, fauces visible Class III: Soft palate, base of uvula visible Class IV: Only hard plate visible Mallampati Classification: Class II Surgeon: Marcelino Diagnosis: Recurrent HS Surgical Procedure: Bilateral groin wounds debridement Anesthesia History: PONV Family History: no anesthesia problems Allergies: Coded Allergies: No Known Allergies (Unverified , 12/21/16) Medications: see eMAR Past Medical History Cardiovascular: Denies: CAD, HTN, [place], arrhythmia, other, valve dz Pulmonary: Reports: asthma - mild, Denies: COPD, CELESTE, other Gastrointestinal/Genitourinary: Reports: GERD, Denies: CRI, ESRD, other Neurologic/Psychiatric: Reports: depression/anxiety, Denies: CVA, TIA, dementia, other Endocrine: Denies: DM, hypothyroidism, other, steroids HEENT: Denies: PAIMIUT (L), PAIMIUT (R), cataract (L), cataract (R), glaucoma, other Hematology/Immune: Reports: anemia, Denies: DVT, bleeding disorder, other Musculoskeletal/Integumentary: Denies: DDD, DJD, OA, RA, edema, other Other: obesity PMH Narrative: as above PSxH Narrative: Multiple Sx for HS treatment Anesthesia Pre-op Phys. Exam Physician Exam Last Vital Signs Date Time Temp Pulse Resp B/P Pulse Ox O2 Delivery O2 Flow Rate FiO2 01/22/17 10:47 81 16 97 01/22/17 10:02 Room Air 01/22/17 07:29 98.2 102/63 Constitutional: NAD Neurologic: CN 2-12 intact Cardiovascular: RRR, no M/R/G Respiratory: CTA Gastrointestinal: S/NT/ND Airway Exam Mallampati Score: Class II Neck: flexible ROM: full Teeth: intact Dentures: no lower, no upper Anesthesia Pre-op A/P Labs Hematology Test 01/21/17 13:50 01/22/17 05:05 White Blood Count 9.3 K/UL (4.8-10.8) 8.5 K/UL (4.8-10.8) Red Blood Count 3.73 M/UL (4.20-5.40) L 3.56 M/UL (4.20-5.40) L Hemoglobin 9.9 G/DL (12.0-16.0) L 10.0 G/DL (12.0-16.0) L Hematocrit 32.7 % (37.0-47.0) L 31.0 % (37.0-47.0) L Mean Corpuscular Volume 88 FL (80-99) 87 FL (80-99) Mean Corpuscular Hemoglobin 26.5 PG (27.0-31.0) L 27.9 PG (27.0-31.0) Mean Corpuscular Hemoglobin Concent 30.2 G/DL (32.0-36.0) L 32.1 G/DL (32.0-36.0) Red Cell Distribution Width 13.0 % (11.6-14.8) 12.8 % (11.6-14.8) Platelet Count 378 K/UL (150-450) 377 K/UL (150-450) Mean Platelet Volume 6.6 FL (6.5-10.1) 6.8 FL (6.5-10.1) Neutrophils (%) (Auto) 42.2 % (45.0-75.0) L 41.6 % (45.0-75.0) L Lymphocytes (%) (Auto) 42.9 % (20.0-45.0) 42.3 % (20.0-45.0) Monocytes (%) (Auto) 10.2 % (1.0-10.0) H 10.7 % (1.0-10.0) H Eosinophils (%) (Auto) 3.7 % (0.0-3.0) H 4.2 % (0.0-3.0) H Basophils (%) (Auto) 1.1 % (0.0-2.0) 1.2 % (0.0-2.0) Coagulation Test 01/21/17 13:50 Prothrombin Time 11.4 SEC (9.30-11.50) Prothromb Time International Ratio 1.1 (0.9-1.1) Activated Partial Thromboplast Time 29 SEC (23-33) Chemistry Test 01/21/17 13:50 01/22/17 05:25 Sodium Level 138 mEQ/L (135-145) 139 mEQ/L (135-145) Potassium Level 4.2 mEQ/L (3.4-4.9) 4.3 mEQ/L (3.4-4.9) Chloride Level 101 mEQ/L (98-107) 103 mEQ/L (98-107) Carbon Dioxide Level 24 mEQ/L (20-30) 21 mEQ/L (20-30) Anion Gap 13 (5-15) 15 (5-15) Blood Urea Nitrogen 8 mg/dL (7-23) 6 mg/dL (7-23) L Creatinine 0.7 mg/dL (0.5-0.9) 0.6 mg/dL (0.5-0.9) Estimat Glomerular Filtration Rate > 60 mL/min (>60) > 60 mL/min (>60) Glucose Level 86 mg/dL (74-106) 124 mg/dL (74-106) H Calcium Level 9.7 mg/dL (8.6-10.2) 9.6 mg/dL (8.6-10.2) Iron Level 21 ug/dL (37-145) L Total Iron Binding Capacity 277 ug/dL (250-400) Percent Iron Saturation 8 % (15-50) L Unsaturated Iron Binding 256 ug/dL (112-346) Ferritin 148 ng/mL (13-150) Total Bilirubin < 0.2 mg/dL (0.0-1.2) Aspartate Amino Transf (AST/SGOT) 14 U/L (5-40) Alanine Aminotransferase (ALT/SGPT) 35 U/L (3-33) H Alkaline Phosphatase 65 U/L (35-104) Total Protein 7.9 g/dL (6.6-8.7) Albumin 3.8 g/dL (3.5-5.2) Globulin 4.1 g/dL Albumin/Globulin Ratio 0.9 (1.0-2.7) L Urine Test Test 01/21/17 14:00 Urine HCG, Qualitative Negative Risk Assessment & Plan Assessment: ASA 3 Plan: GA with ETT PONV prevention, scopolamine patch preop. Status Change Before Surgery: No Pre-Antibiotics Drug: Ancef 1gr. Given Within 1 Hr of Incision: Yes Time Given: 12:40 VAKULENKO,AIDEN, M.D. Jan 22, 2017 13:23
[2017-01-22] MEDS ORDERED: Ketorolac 30mg Inj IV PRN (13:30)
[2017-01-22] MEDS ORDERED: Meperidine 25mg/0.5ml Inj (FOR RIGORS ONLY) IV ONE (13:30)
[2017-01-22] MEDS ORDERED: fentaNYL 100 mcg/2 mL IV PRN (13:30)
[2017-01-22] MEDS ORDERED: Midazolam 2mg/2ml Inj IVP PRN (13:30)
[2017-01-22] MEDS ORDERED: Metoclopramide 10mg/2ml Inj IVP PRN (13:30)
--- NOTE | 2017-01-22 14:22 | Operative Note - PDOC ---
Operative Note Operative Note Pre-op Diagnosis: Bilateral groin wound infection and dehiscence Procedure: Debridement and partial closure of bilateral groin and thigh wounds with wound vac placement Post-op Diagnosis: same as pre-op Surgeon: Marcelino Government Relations Manager: Regino Anesthesia: general Specimen: yes Complications: none Condition: stable Estimated Blood Loss: volume - 50 ADDISON SIERRA Jan 22, 2017 14:22
[2017-01-22] MEDS ORDERED: Rate Change PCA 1 Each MISC PRN (14:30)
--- NOTE | 2017-01-22 14:31 | Immediate Post-Op Evaluation ---
Immediate Post-Op Evalulation Immediate Post-Op Evalulation Procedure: Bilateral groin wounds debridement and partial closure Date of Evaluation: Jan 22, 2017 Time of Evaluation: 14:29 IV Fluids: 1200 Blood Products: none Estimated Blood Loss: 50 Urinary Output: 100 Blood Pressure Systolic: 113 Blood Pressure Diastolic: 76 Pulse Rate: 98 Respiratory Rate: 20 O2 Sat by Pulse Oximetry: 99 Temperature (Fahrenheit): 97.8 Pain Score (1-10): 1 Nausea: No Vomiting: No Complications none Patient Status: reacts, patent, extubated, none Hydration Status: adequate AIDEN CAMPBELL M.D. Jan 22, 2017 14:30
[2017-01-22] MEDS: Hydromorphone 0.5mg/0.5ml inj IVP PRN ×2 (14:41→14:49)
[2017-01-22] MEDS: PCA HYDROmorphone 1mg/ml 30 ML IV PRN (14:59)
--- NOTE | 2017-01-22 15:11 | General Progress Note ---
Assessment/Plan Problem List: (1) Wound dehiscence ICD Codes: T81.30XA - Disruption of wound, unspecified, initial encounter SNOMED: 629873901 (2) Hidradenitis suppurativa ICD Codes: L73.2 - Hidradenitis suppurativa SNOMED: 31437659 (3) Acute blood loss anemia ICD Codes: D62 - Acute posthemorrhagic anemia SNOMED: 376021144 (4) Constipation ICD Codes: K59.00 - Constipation, unspecified SNOMED: 21851416 (5) Hematochezia ICD Codes: K92.1 - Melena SNOMED: 460039835 (6) Iron deficiency anemia ICD Codes: D50.9 - Iron deficiency anemia, unspecified SNOMED: 04848786 Status: stable Assessment/Plan Plastic surgery consulted F/u blood cultures Empiric ancef Wound care per surgery Ferrous sulfate 325mg BID Monitor stools/BMs for signs of bleeding. If persistent, consider GI consult Trend CBC Pain control, bowel regimen Supportive care Subjective Date patient seen: Jan 22, 2017 Time patient seen: 15:11 ROS Limited/Unobtainable: No Constitutional: Reports: no symptoms HEENT: Reports: no symptoms Cardiovascular: Reports: no symptoms Respiratory: Reports: no symptoms Gastrointestinal/Abdominal: Reports: no symptoms Genitourinary: Reports: no symptoms Neurologic/Psychiatric: Reports: no symptoms Endocrine: Reports: no symptoms Hematologic/Lymphatic: Reports: no symptoms Allergies: Coded Allergies: No Known Allergies (Unverified , 12/21/16) All Systems: reviewed and negative except above Subjective s/p debridement and partial closure of bilateral groin and thigh wounds with wound vac placement today Pain controlled Denies f/c, d/c, chest pain, SOB +BM today Having some nausea postop. State had some swelling and pain at IV site after IV venofer Objective Last 24 Hour Vital Signs Date Time Temp Pulse Resp B/P Pulse Ox O2 Delivery O2 Flow Rate FiO2 01/22/17 14:30 98 20 99 01/22/17 10:47 81 16 97 01/22/17 10:02 81 16 97 Room Air 01/22/17 07:29 98.2 80 14 102/63 97 Room Air 01/22/17 05:42 98.1 85 18 115/65 98 Room Air 01/21/17 20:00 97.5 98 16 121/65 98 Room Air 01/21/17 16:05 99.0 96 16 117/70 98 Room Air 01/21/17 15:14 98.1 90 13 112/64 100 Room Air Intake and Output 01/21/17 01/22/17 19:00 07:00 Intake Total 120 ml 120 ml Balance 120 ml 120 ml Intake Oral 120 ml 120 ml # Voids 1 2 Laboratory Tests 01/22/17 05:05: White Blood Count 8.5, Red Blood Count 3.56L, Hemoglobin 10.0L, Hematocrit 31.0L , Mean Corpuscular Volume 87, Mean Corpuscular Hemoglobin 27.9, Mean Corpuscular Hemoglobin Concent 32.1, Red Cell Distribution Width 12.8, Platelet Count 377, Mean Platelet Volume 6.8, Neutrophils (%) (Auto) 41.6L, Lymphocytes ( %) (Auto) 42.3, Monocytes (%) (Auto) 10.7H, Eosinophils (%) (Auto) 4.2H, Basophils (%) (Auto) 1.2 01/22/17 05:25: Sodium Level 139, Potassium Level 4.3, Chloride Level 103, Carbon Dioxide Level 21, Anion Gap 15, Blood Urea Nitrogen 6L, Creatinine 0.6, Estimat Glomerular Filtration Rate > 60, Glucose Level 124H, Calcium Level 9.6 Height (Feet): 5 Height (Inches): 5.00 Weight (Pounds): 212 Objective General: alert, cooperative, no distress, appears stated age Head: normocephalic, without obvious abnormality, atraumatic Eyes: conjunctivae/corneas clear. PERRL, EOM's intact Throat: lips, mucosa, and tongue normal. MMM Neck: supple, symmetrical, trachea midline, and no JVD Lungs: clear to auscultation bilaterally Heart: regular rate and rhythm, S1, S2 normal, no murmur, click, rub or gallop Abdomen: soft, non-tender, non-distended, bowel sounds normal; no masses or organomegaly Extremities: extremities normal, atraumatic, no cyanosis or edema Dressing c/d/i +w0uond vac in place b/l Pulses: 2+ and symmetric Skin: skin color, texture, turgor normal; no rashes or lesions Neurologic: grossly normal, no focal deficits Kirk Conner M.D. Jan 22, 2017 15:11
[2017-01-22] MEDS ORDERED: PCA Education Pamphlet MISC ONE (16:00)
[2017-01-22] MEDS ORDERED: D5 1/2NS 1,000 ML IV SCH (16:00)
[2017-01-22] MEDS: PCA shift volume MISC SCH (19:00)
[2017-01-22] MEDS: Heparin 5000 units/ml inj SUBQ SCH (21:00)
[2017-01-23] VITALS: BP 114/66
--- NOTE | 2017-01-23 01:00 | Operative Note - Dictated ---
DATE OF OPERATION: 01/22/2017 PREOPERATIVE DIAGNOSIS: Bilateral groin and thigh wound infection/dehiscence. POSTOPERATIVE DIAGNOSIS: Bilateral groin and thigh wound infection/dehiscence. PROCEDURES: 1. Debridement of left groin and thigh wound. 2. Debridement of right groin and thigh wound. 3. Elevation of a superior groin flap for closure of left groin wound. 4. Reelevation of medial thigh flap for closure of left groin wound. 5. Elevation of a right groin flap for closure of right groin wound. 6. Reelevation of medial thigh flap for reclosure of right groin wound. 7. Application of wound VAC to bilateral thigh wounds. SURGEON: Connie Benson M.D. STRUCTURAL DRAFTER: Mala Lacy M.D. ANESTHESIA: General. COMPLICATIONS: None. EBL: 50 mL. DISPOSITION: Stable to the recovery room. INDICATIONS FOR SURGERY: This is a 26-year-old female, who is approximately one month status post a radical excision and reconstruction of her bilateral groin and thigh wounds, who has been undergoing hyperbaric oxygen wound therapy at her home when she noted to have some foul-smelling drainage and nonviable tissue present within the wound bed. As such, presented to the emergency room with pain and evidence of infection in the areas. Upon my evaluation, I felt that she was an appropriate candidate for staged approach of debridement with partial closure with subsequent skin graft placement at the second operation. She understood the risks and benefits of surgery and agreed to proceed. DETAILS OF THE OPERATION: The patient was brought to the operating room and laid in lithotomy position on the operating room table. Her lower abdomen, bilateral groin, and thighs were prepped and draped in a sterile and usual fashion. We first began by removing all the loose aileen and sutures from a previous operation. A marking pen was used to delineate the area that needed to be debrided both in the groin and thigh wound. Once the markings were made, a #10 blade was used to make the first skin incision on the right groin wound and then, this was extended down with electrocautery into the thigh. A nonviable tissue on the wound bed was then removed. Following this, a superior right groin flap was elevated based off of perforators of the superficial inferior epigastric artery. In a similar fashion, the anterior medial thigh flap that had been previously elevated was reelevated based off of perforators of the superficial femoral artery with both flaps fully mobilized. The wound was then copiously irrigated on that side and the flaps were brought together using #0 and 2-0 Vicryl sutures and 2-0 Prolene was used to close the skin. This wound had been closed over a Surgicel hemostatic agent. We then turned our attention to the contralateral side where the skin incisions were made using a #10 blade around the marking and electrocautery was used to remove the nonviable tissue and in a similar fashion, the medial groin flap was elevated based off of perforators of the superficial inferior epigastric artery with proximal and distal incisions made to fully mobilize the flap and the previously raised anterior medial thigh flap was reelevated based off of perforators of the superficial femoral artery and once copious irrigation was performed and hemostasis was achieved, the wounds were closed with Surgicel bringing the flaps together using #0 and 2-0 Vicryl sutures and #0 Prolene for the skin. The central thigh wound that was left open was then covered with a wound VAC. The wound VAC was set to 175 mmHg on both sides. PLAN: The plan will be to bring the patient back to the operating room in 72 hours for definitive soft tissue coverage with the thigh wound using a split-thickness skin graft. Connie Benson M.D. DR: ESTEBAN JOB#: [id number] CC:
[2017-01-23 04:00] VITALS: BP 118/65
[2017-01-23] MEDS: ceFAZolin sod 1 GM in D5W 55 ML IVPB SCH ×3 (06:22→21:37)
[2017-01-23] MEDS: PCA shift volume MISC SCH ×2 (07:16→19:00)
[2017-01-23 07:34] LABS: BASOPHILS % (AUTO) 0.5 % (0.0-2.0); EOSINOPHILS % (AUTO) 0.5 % (0.0-3.0); LYMPHOCYTES % (AUTO) 19.7 % (20.0-45.0); MEAN CORPUSCULAR HEMOGLOBIN 28.3 PG (27.0-31.0); MEAN CORPUSCULAR HGB CONC 32.6 G/DL (32.0-36.0); MEAN CORPUSCULAR VOLUME 87 FL (80-99); MEAN PLATELET VOLUME 6.3 FL (6.5-10.1); MONOCYTES % (AUTO) 8.6 % (1.0-10.0); NEUTROPHILS % (AUTO) 70.8 % (45.0-75.0); PLATELET COUNT 325 K/UL (150-450); RED BLOOD COUNT 2.84 M/UL (4.20-5.40); WHITE BLOOD COUNT 11.9 K/UL (4.8-10.8)
[2017-01-23 08:00] VITALS: BP 108/64
[2017-01-23] MEDS: Montelukast 10mg tablet ORAL SCH (08:02)
[2017-01-23] MEDS: Docusate 100mg cap ORAL SCH ×3 (08:03→21:00)
[2017-01-23] MEDS: Heparin 5000 units/ml inj SUBQ SCH ×2 (08:11→20:49)
[2017-01-23] MEDS ORDERED: Tubing IV Secondary IV ONE (08:43)
[2017-01-23] MEDS ORDERED: 1/2 NS 1000ml IV ONE (08:43)
--- NOTE | 2017-01-23 09:14 | 48 Hour Post Anesthesia Eval ---
Post Anesthesia Evaluation Procedure: Bilateral groin wounds debridement and partial closure Date of Evaluation: Jan 23, 2017 Time of Evaluation: 09:13 Blood Pressure Systolic: 116 0: 58 Pulse Rate: 84 Respiratory Rate: 20 Temperature (Fahrenheit): 97.6 O2 Sat by Pulse Oximetry: 98 Airway: patent Nausea: No Vomiting: No Pain Intensity: 4 Hydration Status: adequate Cardiopulmonary Status: stable Mental Status/LOC: patient returned to baseline Follow-up Care/Observations: n/a Post-Anesthesia Complications: none Follow-up care needed: N/A AIDEN CAMPBELL M.D. Jan 23, 2017 09:14
--- NOTE | 2017-01-23 10:51 | General Progress Note ---
Progress Note Progress Note Pt seen and examined. POD# 1 from closure of groin wounds and wound vac placement. Doing well. Wound vac in place. Plan on skin graft to the open areas on Saturday. ADDISON Cota MD Jan 23, 2017 10:51
--- NOTE | 2017-01-23 14:06 | General Progress Note ---
Assessment/Plan Problem List: (1) Wound dehiscence ICD Codes: T81.30XA - Disruption of wound, unspecified, initial encounter SNOMED: 011744308 (2) Hidradenitis suppurativa ICD Codes: L73.2 - Hidradenitis suppurativa SNOMED: 23846420 (3) Acute blood loss anemia ICD Codes: D62 - Acute posthemorrhagic anemia SNOMED: 029654963 (4) Constipation ICD Codes: K59.00 - Constipation, unspecified SNOMED: 84137863 (5) Hematochezia Assessment & Plan: resolved ICD Codes: K92.1 - Melena SNOMED: 060914180 (6) Iron deficiency anemia ICD Codes: D50.9 - Iron deficiency anemia, unspecified SNOMED: 17061734 Status: stable Assessment/Plan Plastic surgery consulted s/p debridement and partial closure of bilateral groin and thigh wounds with wound vac placement 01/22/17 Plan on skin graft to the open areas on Saturday F/u blood cultures Empiric ancef Wound care per surgery Ferrous sulfate 325mg BID Monitor stools/BMs for signs of bleeding. If persistent, consider GI consult Trend CBC Pain control, bowel regimen Supportive care Subjective Date patient seen: Jan 23, 2017 Time patient seen: 14:06 ROS Limited/Unobtainable: No Allergies: Coded Allergies: No Known Allergies (Unverified , 12/21/16) Subjective s/p debridement and partial closure of bilateral groin and thigh wounds with wound vac placement yesterday, POD#1 Pain controlled Denies f/c, d/c, chest pain, SOB Having some nausea postop, no emesis. Poor appetite Objective Last 24 Hour Vital Signs Date Time Temp Pulse Resp B/P (MAP) Pulse Ox O2 Delivery O2 Flow Rate FiO2 01/23/17 11:59 16 01/23/17 09:14 84 20 98 01/23/17 09:12 Room Air 01/23/17 09:12 84 16 Room Air 01/23/17 09:12 Room Air 01/23/17 08:00 16 01/23/17 08:00 99.6 79 20 108/64 97 Nasal Cannula 01/23/17 04:00 16 01/23/17 04:00 99.0 115 20 118/65 97 Room Air 01/23/17 00:00 16 01/23/17 00:00 98.3 105 19 114/66 98 Room Air 01/22/17 20:13 97.9 83 18 130/72 100 Room Air 01/22/17 20:00 18 01/22/17 19:24 60 18 Room Air 21 01/22/17 17:18 18 01/22/17 17:03 18 01/22/17 16:41 20 01/22/17 16:30 97.3 61 20 103/54 96 Room Air 01/22/17 16:21 20 01/22/17 15:40 98.0 61 20 111/60 100 Nasal Cannula 2.0 01/22/17 15:39 97.8 01/22/17 15:39 97.8 01/22/17 15:30 20 01/22/17 15:24 57 20 107/56 100 Nasal Cannula 2.0 01/22/17 15:15 20 01/22/17 15:15 69 20 107/53 99 Nasal Cannula 2.0 01/22/17 14:59 20 01/22/17 14:59 76 20 111/62 99 Nasal Cannula 2.0 01/22/17 14:49 63 20 108/65 99 Nasal Cannula 2.0 01/22/17 14:45 86 20 108/70 99 Nasal Cannula 2.0 01/22/17 14:41 107 20 110/61 99 Nasal Cannula 2.0 01/22/17 14:35 108 20 121/78 99 Simple Mask 8.0 01/22/17 14:30 101 20 113/77 99 Simple Mask 8.0 01/22/17 14:30 98 20 99 01/22/17 14:25 98.0 100 20 114/74 99 Simple Mask 8.0 Intake and Output 01/23/17 01/24/17 19:00 07:00 Intake Total 375 ml Balance 375 ml IV Total 375 ml Laboratory Tests 01/23/17 07:10: White Blood Count 11.9H, Red Blood Count 2.84L, Hemoglobin 8.0L, Hematocrit 24.6L, Mean Corpuscular Volume 87, Mean Corpuscular Hemoglobin 28.3, Mean Corpuscular Hemoglobin Concent 32.6, Red Cell Distribution Width 13.0, Platelet Count 325, Mean Platelet Volume 6.3L, Neutrophils (%) (Auto) 70.8, Lymphocytes ( %) (Auto) 19.7L, Monocytes (%) (Auto) 8.6, Eosinophils (%) (Auto) 0.5, Basophils (%) (Auto) 0.5 Height (Feet): 5 Height (Inches): 5.00 Weight (Pounds): 212 Objective General: alert, cooperative, no distress, appears stated age Head: normocephalic, without obvious abnormality, atraumatic Eyes: conjunctivae/corneas clear. PERRL, EOM's intact Throat: lips, mucosa, and tongue normal. MMM Neck: supple, symmetrical, trachea midline, and no JVD Lungs: clear to auscultation bilaterally Heart: regular rate and rhythm, S1, S2 normal, no murmur, click, rub or gallop Abdomen: soft, non-tender, non-distended, bowel sounds normal; no masses or organomegaly Extremities: extremities normal, atraumatic, no cyanosis or edema Dressing c/d/i +w0uond vac in place b/l Pulses: 2+ and symmetric Skin: skin color, texture, turgor normal; no rashes or lesions Neurologic: grossly normal, no focal deficits Kirk Conner M.D. Jan 23, 2017 14:06
[2017-01-23] MEDS: PCA HYDROmorphone 1mg/ml 30 ML IV PRN (14:37)
--- NOTE | 2017-01-23 15:41 | Cardiology Report ---
APPROVED REPORT EKG Measurement Heart [id number] Normal sinus rhythm Normal ECG
[2017-01-23 16:00] VITALS: BP 103/53
[2017-01-23] MEDS ORDERED: Norco 10mg/325mg tab ORAL PRN ×2 (19:30→20:30)
[2017-01-23 20:00] VITALS: BP 112/69
[2017-01-24] VITALS: BP 113/71
[2017-01-24 04:00] VITALS: BP 101/59
[2017-01-24] MEDS: ceFAZolin sod 1 GM in D5W 55 ML IVPB SCH ×3 (06:21→22:16)
[2017-01-24] MEDS: PCA shift volume MISC SCH ×2 (07:12→19:11)
[2017-01-24 07:17] LABS: MEAN CORPUSCULAR HEMOGLOBIN 27.6 PG (27.0-31.0); MEAN CORPUSCULAR HGB CONC 31.9 G/DL (32.0-36.0); MEAN CORPUSCULAR VOLUME 87 FL (80-99); MEAN PLATELET VOLUME 6.3 FL (6.5-10.1); PLATELET COUNT 331 K/UL (150-450); RED BLOOD COUNT 2.82 M/UL (4.20-5.40); RED CELL DISTRIBUTION WIDTH 12.6 % (11.6-14.8); WHITE BLOOD COUNT 14.6 K/UL (4.8-10.8)
--- NOTE | 2017-01-24 07:43 | General Progress Note ---
Progress Note Progress Note Pt seen and examined. She is now POD # 2 and stable. Plan for OR tomorrow for skin grafting to bilateral groin wounds NPO after MN and consent. ADDISON Cota MD Jan 24, 2017 07:43
[2017-01-24 08:29] VITALS: BP 104/58
[2017-01-24] MEDS: Montelukast 10mg tablet ORAL SCH (08:57)
[2017-01-24] MEDS: Docusate 100mg cap ORAL SCH ×2 (08:57→22:16)
[2017-01-24] MEDS: Heparin 5000 units/ml inj SUBQ SCH ×2 (09:03→21:00)
[2017-01-24 09:06] LABS: BAND NEUTROPHILS % (MANUAL) 1 % (0-8); BASOPHILS % (MANUAL) 0 % (0-2); EOSINOPHILS % (MANUAL) 1 % (0-3); LYMPHOCYTES % (MANUAL) 15 % (20-45); NEUTROPHILS % (MANUAL) 74 % (45-75); PLATELET ESTIMATE ADEQUATE; PLATELET MORPHOLOGY NORMAL; TOTAL CELLS COUNTED 100
[2017-01-24 09:07] LABS: HYPOCHROMASIA 1+
[2017-01-24 12:17] VITALS: BP 103/62
--- NOTE | 2017-01-24 13:37 | Diagnostic Imaging Report ---
APPROVED REPORT CPT Code: 99765 Present Symptoms Lower Extremity Pain: Bilateral Lower Extremity Edema: Bilateral Comments: S/P Surgery for hidradenitis suppurativa. Limited study due to surgery in the groin area, dressings, drains. Common femoral, greater saphenous, proximal and mid superficial femoral veins were not assessed. BILATERAL: Imaging reveals a patent deep venous system bilaterally. There is no evidence of thrombus within the distal superficial femoral, popliteal or tibial segments. Doppler indicates normal spontaneous flow within these segments.
--- NOTE | 2017-01-24 13:42 | Consultation ---
History of Present Illness General Date patient seen: Jan 24, 2017 Chief Complaint: General Complaint Present Illness Allergies: Coded Allergies: No Known Allergies (Unverified , 12/21/16) Medication History Scheduled Budesonide/Formoterol Fumarate (Symbicort 160-4.5 Mcg Inhaler), 2 PUFF IH DAILY, (Reported) Cephalexin* (Keflex*), 500 MG ORAL Q6H Docusate Sodium* (Colace*), 100 MG ORAL EVERY 12 HOURS Levocetirizine Dihydrochloride (Levocetirizine Dihydrochloride), 5 MG ORAL DAILY , (Reported) Montelukast Sodium* (Montelukast Sodium*), Unknown Dose ORAL DAILY, (Reported) Scheduled PRN Albuterol Sulfate* (Proair Hfa*), 1 PUFF INH Q6H PRN for Bronchospasm, (Reported ) Cyclobenzaprine Hcl* (Flexeril*), 10 MG ORAL TIDPRN PRN Hydrocodone Bit/Acetaminophen 5-325* (Eudora 5-325*), 1 TAB ORAL Q6H PRN Hydromorphone HCl (Dilaudid), 2 MG ORAL Q6HR PRN Ibuprofen* (Motrin*), 400 MG ORAL for For Pain, (Reported) Miscellaneous Medications Medroxyprogesterone Acetate (Depo-Provera), 150 MG IM, (Reported) [hydroc] Patient History Healthcare decision maker Resuscitation status Full Code Advanced Directive on File Physical Exam Last 24 Hour Vital Signs Date Time Temp Pulse Resp B/P (MAP) Pulse Ox O2 Delivery O2 Flow Rate FiO2 01/24/17 12:17 98.8 101 20 103/62 98 Room Air 01/24/17 12:00 16 01/24/17 10:19 99.7 01/24/17 08:29 99.7 97 20 104/58 98 Room Air 01/24/17 08:00 18 01/24/17 04:00 18 01/24/17 04:00 100.0 106 18 101/59 94 Room Air 01/24/17 00:00 18 01/24/17 00:00 99.3 99 18 113/71 99 Room Air 01/23/17 20:14 99 Nasal Cannula 3.0 32 01/23/17 20:14 Nasal Cannula 3.0 32 01/23/17 20:02 89 18 Room Air 01/23/17 20:00 16 01/23/17 20:00 101.0 111 18 112/69 99 Room Air 01/23/17 16:00 99.0 90 20 103/53 98 Nasal Cannula 01/23/17 16:00 18 01/23/17 14:38 16 Intake and Output 01/24/17 01/25/17 19:00 07:00 Intake Total 1125 ml Output Total 900 ml Balance 225 ml Intake Oral 900 ml IV Total 225 ml Output Urine Total 900 ml # Voids 1 Laboratory Tests Test 01/24/17 05:10 White Blood Count 14.6 K/UL (4.8-10.8) H Red Blood Count 2.82 M/UL (4.20-5.40) L Hemoglobin 7.8 G/DL (12.0-16.0) L Hematocrit 24.4 % (37.0-47.0) L Mean Corpuscular Volume 87 FL (80-99) Mean Corpuscular Hemoglobin 27.6 PG (27.0-31.0) Mean Corpuscular Hemoglobin Concent 31.9 G/DL (32.0-36.0) L Red Cell Distribution Width 12.6 % (11.6-14.8) Platelet Count 331 K/UL (150-450) Mean Platelet Volume 6.3 FL (6.5-10.1) L Neutrophils (%) (Auto) % (45.0-75.0) Lymphocytes (%) (Auto) % (20.0-45.0) Monocytes (%) (Auto) % (1.0-10.0) Eosinophils (%) (Auto) % (0.0-3.0) Basophils (%) (Auto) % (0.0-2.0) Differential Total Cells Counted 100 Neutrophils % (Manual) 74 % (45-75) Lymphocytes % (Manual) 15 % (20-45) L Monocytes % (Manual) 9 % (1-10) Eosinophils % (Manual) 1 % (0-3) Basophils % (Manual) 0 % (0-2) Band Neutrophils 1 % (0-8) Platelet Estimate Adequate Platelet Morphology Normal Hypochromasia 1+ Height (Feet): 5 Height (Inches): 5.00 Weight (Pounds): 212 Medications Current Medications Medications (Trade) Dose Ordered Sig/Last Route PRN Reason Start Time Stop Time Status Last Admin Dose Admin Acetaminophen (Tylenol) 650 mg Q4H PRN ORAL Mild Pain (Pain Scale 1-3) 01/21/17 14:45 02/20/17 14:44 01/23/17 08:04 Acetaminophen/ Hydrocodone Bitart (Eudora 10/325) 1 ea Q4H PRN ORAL unrelieved breakthrough pain 01/23/17 20:30 01/30/17 20:29 Al Hydroxide/Mg Hydroxide (Mylanta II) 30 ml Q6H PRN ORAL dyspepsia 01/21/17 14:45 02/20/17 14:44 Albuterol Sulfate (Proventil MDI) 1 puff Q6H PRN INH Bronchospasm 01/21/17 15:00 02/20/17 14:59 Bisacodyl (Dulcolax) 10 mg HSPRN PRN RECTAL Persistent Constipation 01/21/17 14:45 02/20/17 14:44 Budesonide/ Formoterol Fumarate (Symbicort 160/ 4.5) 2 puff DAILY INH 01/22/17 09:00 02/21/17 08:59 01/24/17 08:52 Cefazolin Sodium 1 gm/Dextrose 55 ml @ 110 mls/hr Q8HR IVPB 01/21/17 16:00 01/28/17 15:59 01/24/17 06:21 Cyclobenzaprine HCl (Flexeril) 10 mg TIDPRN PRN ORAL muscle spasms 01/21/17 15:00 02/20/17 14:59 Dextrose (Dextrose 50%) STAT PRN IV Hypoglycemia 01/21/17 14:45 02/20/17 14:44 Diphenhydramine HCl (Benadryl) 25 mg Q6H PRN ORAL Itching/Pruritis 01/21/17 14:45 02/20/17 14:44 Docusate Sodium (Colace) 100 mg EVERY 12 HOURS ORAL 01/21/17 21:00 02/20/17 20:59 01/24/17 08:57 Ferrous Sulfate (Feosol) 325 mg BID ORAL 01/23/17 09:00 02/22/17 08:59 01/24/17 08:57 Fexofenadine HCl (Betina) 60 mg BIDPRN PRN ORAL allergies 01/21/17 15:00 02/20/17 14:59 Heparin Sodium (Porcine) (Heparin 5000 units/ml) 5,000 units EVERY 12 HOURS SUBQ 01/22/17 21:00 02/21/17 20:59 01/24/17 09:03 Hydromorphone HCl 30 ml @ 0 mls/hr Q24H PRN IV For Pain 01/22/17 14:30 01/24/17 14:29 01/23/17 14:37 Hydromorphone HCl (Dilaudid) 2 mg Q3H PRN SUBQ Severe Pain (Pain Scale 7-10) 01/22/17 14:15 01/24/17 14:14 01/24/17 09:49 Hydromorphone HCl (Dilaudid) 2 mg Q4H PRN IVP Moderate Pain (Pain Scale 4-6) 01/22/17 14:15 01/24/17 14:14 Lorazepam (Ativan) 1 mg Q4H PRN ORAL For Anxiety 01/21/17 14:45 01/28/17 14:44 Magnesium Hydroxide (Mom) 30 ml HSPRN PRN ORAL Constipation 01/21/17 14:45 02/20/17 14:44 Miscellaneous Medication (RULING TECHNICIAN Rate Change) 1 ea DAILY PRN MISC rate change 01/22/17 14:30 01/24/17 14:29 Miscellaneous Medication (RULING TECHNICIAN shift volume) 1 ea Q12HR@0700,1900 MISC 01/22/17 19:00 01/24/17 18:59 01/24/17 07:12 Montelukast Sodium (Singulair) 10 mg DAILY ORAL 01/22/17 09:00 02/21/17 08:59 01/24/17 08:57 Naloxone HCl (Narcan) 0.1 mg PRN IV STAT if RR<10min OR SBP<90 mmH 01/22/17 14:15 01/24/17 14:14 Ondansetron HCl (Zofran) 4 mg Q6H PRN IVP Nausea & Vomiting 01/21/17 14:45 02/20/17 14:44 01/23/17 20:24 Polyethylene Glycol (Miralax) 17 gm HSPRN PRN ORAL Constipation Unrelieved by MOM 01/21/17 14:45 02/20/17 14:44 Prochlorperazine (Compazine) 10 mg Q6H PRN IVP Nausea & Vomiting 01/22/17 16:30 02/21/17 16:29 Sodium Chloride 1,000 ml @ 75 mls/hr [id number] IV 01/22/17 17:00 02/21/17 16:59 01/24/17 08:56 Zolpidem Tartrate (Ambien) 5 mg HSPRN PRN ORAL Insomnia 01/21/17 14:45 02/20/17 14:44 Assessment/Plan Assessment/Plan (1) Hidradenitis suppurativa (2) B/L groin and thigh wound infection (3) S/p Debridement (4) Intractable pain seen dictated. FELIX ALTAMIRANO Jan 24, 2017 13:42
--- NOTE | 2017-01-24 14:53 | General Progress Note ---
Assessment/Plan Problem List: (1) Sepsis Assessment & Plan: Fevers + leukocytosis ICD Codes: A41.9 - Sepsis, unspecified organism SNOMED: 93932379 (2) Wound dehiscence ICD Codes: T81.30XA - Disruption of wound, unspecified, initial encounter SNOMED: 128999543 (3) Hidradenitis suppurativa ICD Codes: L73.2 - Hidradenitis suppurativa SNOMED: 71001178 (4) Acute blood loss anemia ICD Codes: D62 - Acute posthemorrhagic anemia SNOMED: 228836999 (5) Constipation ICD Codes: K59.00 - Constipation, unspecified SNOMED: 76601124 (6) Hematochezia Assessment & Plan: resolved ICD Codes: K92.1 - Melena SNOMED: 510921852 (7) Iron deficiency anemia ICD Codes: D50.9 - Iron deficiency anemia, unspecified SNOMED: 04981970 Status: stable Assessment/Plan Plastic surgery consulted s/p debridement and partial closure of bilateral groin and thigh wounds with wound vac placement 01/22/17 Plan on skin graft to the open areas on saturday F/u blood cultures Empiric ancef IVFs Wound care per surgery Ferrous sulfate 325mg BID Monitor stools/BMs for signs of bleeding. If persistent, consider GI consult Trend CBC Pain control, bowel regimen Supportive care A total of 32min of extra time was spent for care/coordination and counseling, in addition to normal encounter time. D/w pt/family, RN, surgery regarding mgmt and dispo Subjective Date patient seen: Jan 24, 2017 Time patient seen: 14:52 ROS Limited/Unobtainable: No Constitutional: Reports: no symptoms HEENT: Reports: no symptoms Cardiovascular: Reports: no symptoms Respiratory: Reports: no symptoms Gastrointestinal/Abdominal: Reports: no symptoms Genitourinary: Reports: no symptoms Neurologic/Psychiatric: Reports: no symptoms Endocrine: Reports: no symptoms Hematologic/Lymphatic: Reports: no symptoms Allergies: Coded Allergies: No Known Allergies (Unverified , 12/21/16) Subjective s/p debridement and partial closure of bilateral groin and thigh wounds with wound vac placement POD#2 Fever to 101 overnight WBC 14.6K Hgb downtrending to 7.8. 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 Complaints of some shooting pain down leg Denies f/c, d/c, chest pain, SOB Appetite improved Normal BM yesterday Objective Last 24 Hour Vital Signs Date Time Temp Pulse Resp B/P (MAP) Pulse Ox O2 Delivery O2 Flow Rate FiO2 01/24/17 12:17 98.8 101 20 103/62 98 Room Air 01/24/17 12:00 16 01/24/17 10:19 99.7 01/24/17 08:49 99 Room Air 01/24/17 08:49 92 22 99 Room Air 01/24/17 08:49 92 20 98 Room Air 01/24/17 08:49 92 22 Room Air 01/24/17 08:49 Room Air 01/24/17 08:29 99.7 97 20 104/58 98 Room Air 01/24/17 08:00 18 01/24/17 04:00 18 01/24/17 04:00 100.0 106 18 101/59 94 Room Air 01/24/17 00:00 18 01/24/17 00:00 99.3 99 18 113/71 99 Room Air 01/23/17 20:14 99 Nasal Cannula 3.0 32 01/23/17 20:14 Nasal Cannula 3.0 32 01/23/17 20:02 89 18 Room Air 01/23/17 20:00 16 01/23/17 20:00 101.0 111 18 112/69 99 Room Air 01/23/17 16:00 99.0 90 20 103/53 98 Nasal Cannula 01/23/17 16:00 18 Intake and Output 01/24/17 01/25/17 19:00 07:00 Intake Total 1125 ml Output Total 900 ml Balance 225 ml Intake Oral 900 ml IV Total 225 ml Output Urine Total 900 ml # Voids 1 Laboratory Tests 01/24/17 05:10: White Blood Count 14.6H, Red Blood Count 2.82L, Hemoglobin 7.8L, Hematocrit 24.4L, Mean Corpuscular Volume 87, Mean Corpuscular Hemoglobin 27.6, Mean Corpuscular Hemoglobin Concent 31.9L, Red Cell Distribution Width 12.6, Platelet Count 331, Mean Platelet Volume 6.3L, Neutrophils (%) (Auto) , Lymphocytes (%) (Auto) , Monocytes (%) (Auto) , Eosinophils (%) (Auto) , Basophils (%) (Auto) , Differential Total Cells Counted 100, Neutrophils % ( Manual) 74, Lymphocytes % (Manual) 15L, Monocytes % (Manual) 9, Eosinophils % ( Manual) 1, Basophils % (Manual) 0, Band Neutrophils 1, Platelet Estimate Adequate, Platelet Morphology Normal, Hypochromasia 1+ Height (Feet): 5 Height (Inches): 5.00 Weight (Pounds): 212 Objective General: alert, cooperative, no distress, appears stated age Head: normocephalic, without obvious abnormality, atraumatic Eyes: conjunctivae/corneas clear. PERRL, EOM's intact Throat: lips, mucosa, and tongue normal. MMM Neck: supple, symmetrical, trachea midline, and no JVD Lungs: clear to auscultation bilaterally Heart: regular rate and rhythm, S1, S2 normal, no murmur, click, rub or gallop Abdomen: soft, non-tender, non-distended, bowel sounds normal; no masses or organomegaly Extremities: extremities normal, atraumatic, no cyanosis or edema Dressing c/d/i +w0uond vac in place b/l Pulses: 2+ and symmetric Skin: skin color, texture, turgor normal; no rashes or lesions Neurologic: grossly normal, no focal deficits Kirk Conner M.D. Jan 24, 2017 14:53
[2017-01-24] MEDS ORDERED: Rate Change PCA 1 Each MISC PRN (15:30)
[2017-01-24] MEDS ORDERED: PCA HYDROmorphone 1mg/ml 30 ML IV PRN (15:30)
[2017-01-24] MEDS ORDERED: Naloxone 0.4mg/ml Inj IV PRN (15:30)
[2017-01-24 16:16] VITALS: BP 108/67
[2017-01-24 20:24] VITALS: BP 109/63
[2017-01-25] VITALS (11 sets, daily range): BP systolic 102–133; BP diastolic 44–65
[2017-01-25 04:57] LABS: MEAN CORPUSCULAR HEMOGLOBIN 26.7 PG (27.0-31.0); MEAN CORPUSCULAR HGB CONC 31.2 G/DL (32.0-36.0); MEAN CORPUSCULAR VOLUME 86 FL (80-99); MEAN PLATELET VOLUME 6.2 FL (6.5-10.1); PLATELET COUNT 299 K/UL (150-450); RED BLOOD COUNT 2.68 M/UL (4.20-5.40); RED CELL DISTRIBUTION WIDTH 12.5 % (11.6-14.8)
[2017-01-25] MEDS: ceFAZolin sod 1 GM in D5W 55 ML IVPB SCH ×3 (06:19→21:50)
[2017-01-25] MEDS ORDERED: Surgicel 4in x 8in TOPIC ONE (07:13)
[2017-01-25] MEDS ORDERED: Bacitracin 50000 Units Vial ONE ×2 (07:13→12:47)
[2017-01-25] MEDS: PCA shift volume MISC SCH ×2 (07:13→19:00)
[2017-01-25] MEDS ORDERED: Lidocaine 1% 10mg/ml/Epi 0.005mg/ml 30ml vial INJ ONE (07:13)
[2017-01-25] MEDS ORDERED: TransDerm Scop 1mg/72HR Patch TDERMAL ONE (08:00)
[2017-01-25] MEDS ORDERED: Muri-Lube ONE (08:00)
[2017-01-25] MEDS: Heparin 5000 units/ml inj SUBQ SCH ×2 (09:00→21:45)
[2017-01-25] MEDS: Montelukast 10mg tablet ORAL SCH (09:00)
[2017-01-25] MEDS: Docusate 100mg cap ORAL SCH ×2 (09:00→21:44)
--- NOTE | 2017-01-25 09:39 | General Progress Note ---
Assessment/Plan Assessment/Plan (1) Hidradenitis suppurativa (2) B/L groin and thigh wound infection (3) S/p Debridement (4) Intractable pain Pt will be continued on ASSOCIATE BUSINESS ANALYST Dilaudid, Dilaudid inj, [place] and Neurontin. D/w Dr. Barrios and he concurred. Subjective Date patient seen: Jan 25, 2017 Time patient seen: 07:45 - am Constitutional: Reports: weakness HEENT: Reports: no symptoms Cardiovascular: Reports: no symptoms Respiratory: Reports: no symptoms Gastrointestinal/Abdominal: Reports: no symptoms Genitourinary: Reports: no symptoms Neurologic/Psychiatric: Reports: tingling Endocrine: Reports: no symptoms Hematologic/Lymphatic: Reports: no symptoms Allergies: Coded Allergies: No Known Allergies (Unverified , 12/21/16) Subjective Patient is laying in bed with family at bedside. She has used 2.59mg of the ASSOCIATE BUSINESS ANALYST Dilaudid and reports the Neurontin has allowed her to sleep. She is looking forward to surgery which is scheduled for today. Objective Last 24 Hour Vital Signs Date Time Temp Pulse Resp B/P (MAP) Pulse Ox O2 Delivery O2 Flow Rate FiO2 01/25/17 08:00 98.0 95 20 107/65 100 Room Air 01/25/17 08:00 20 01/25/17 07:14 92 20 Room Air 01/25/17 07:13 98 Room Air 01/25/17 07:13 Room Air 01/25/17 04:00 98.4 92 19 103/54 96 Room Air 01/25/17 04:00 15 01/25/17 00:00 17 01/24/17 20:24 98.6 93 18 109/63 99 Room Air 01/24/17 20:00 20 01/24/17 19:30 Room Air 21 01/24/17 19:30 98 20 Room Air 21 01/24/17 19:30 98 Room Air 21 01/24/17 19:05 97.4 01/24/17 18:36 20 01/24/17 18:11 97.4 01/24/17 16:16 97.4 100 20 108/67 99 Room Air 01/24/17 12:17 98.8 101 20 103/62 98 Room Air 01/24/17 12:00 16 01/24/17 10:19 99.7 Laboratory Tests 01/25/17 04:20: White Blood Count 11.0H, Red Blood Count 2.68L, Hemoglobin 7.2L, Hematocrit 22.9L, Mean Corpuscular Volume 86, Mean Corpuscular Hemoglobin 26.7L, Mean Corpuscular Hemoglobin Concent 31.2L, Red Cell Distribution Width 12.5, Platelet Count 299, Mean Platelet Volume 6.2L, Neutrophils (%) (Auto) , Lymphocytes (%) (Auto) , Monocytes (%) (Auto) , Eosinophils (%) (Auto) , Basophils (%) (Auto) Height (Feet): 5 Height (Inches): 5.00 Weight (Pounds): 212 General Appearance: no apparent distress, alert EENT: PERRL/EOMI, normal ENT inspection Neck: non-tender, normal alignment Cardiovascular: normal rate, regular rhythm Respiratory/Chest: lungs clear, normal breath sounds Abdomen: soft, no organomegaly Extremities: other - bandages and tenderness to plaption noted at b/l thighs Edema: trace edema Neurologic: alert, oriented x 3 Skin: warm/dry FELIX ALTAMIRANO Jan 25, 2017 09:39
--- NOTE | 2017-01-25 14:04 | Pre-Procedure Note/Attestation ---
Pre-Procedure Note/Attestation Complete Prior to Procedure Planned Procedure: bilateral Procedure Narrative: Bilateral groin wound reconstruction with split thickness skin grafts Indications for Procedure Pre-Operative Diagnosis: Bilateral open groin wounds Attestation I attest that I discussed the nature of the procedure; its benefits; risks and complications; and alternatives (and the risks and benefits of such alternatives ), prior to the procedure, with the patient (or the patient's legal employer relations representative). I attest that, if there was a reasonable possibility of needing a blood transfusion, the patient (or the patient's legal employer relations representative) was given the [facility] standardized written summary, pursuant to the Marlon Speedy Blood Safety Act ([place] Health and Safety Code # 1645, as amended). I attest that I re-evaluated the patient just prior to the surgery and that there has been no change in the patient's H&P, except as documented below: ADDISON SIERRA Jan 25, 2017 14:04
[2017-01-25] MEDS ORDERED: PCA Education Pamphlet MISC ONE ×2 (14:15→16:00)
[2017-01-25] MEDS ORDERED: Ketamine 500mg Inj ONE (14:30)
[2017-01-25] MEDS ORDERED: Midazolam 2mg/2ml Inj ONE (14:30)
[2017-01-25] MEDS ORDERED: Succinylcholine 20mg/ml 10ml vial ONE (14:30)
[2017-01-25] MEDS ORDERED: Propofol 10mg/ml 100ml btl IV ONE (14:30)
[2017-01-25] MEDS ORDERED: NS Irrig 1000ml ONE (14:30)
[2017-01-25] MEDS ORDERED: Glycopyrrolate 0.2mg/ml 1ml Vial ONE (14:30)
[2017-01-25] MEDS ORDERED: Zemuron 50mg/5ml Inj IV ONE (14:30)
[2017-01-25] MEDS ORDERED: Morphine Sulfate 10mg/ml Inj ONE (14:30)
[2017-01-25] MEDS ORDERED: fentaNYL 100 mcg/2 mL IV ONE (14:30)
[2017-01-25] MEDS ORDERED: LR 1000ml ONE (14:30)
[2017-01-25] MEDS ORDERED: Sterile Water Irrig 1000ml IRRIG ONE (14:30)
[2017-01-25] MEDS ORDERED: Neostigmine 1mg/ml 10ml Inj ONE (14:30)
[2017-01-25] MEDS ORDERED: Ketorolac 30mg Inj ONE (14:30)
[2017-01-25] MEDS ORDERED: LR 1000ml 1,000 ML IVLG SCH (15:56)
--- NOTE | 2017-01-25 15:56 | Anethesia Preoperative Eval ---
Anesthesia Pre-op PMH/ROS General Date of Evaluation: Jan 25, 2017 Time of Evaluation: 14:18 Anesthesiologist: Annelise ASA Score: ASA 2 Mallampati Score Class I : Soft palate, uvula, fauces, pillars visible Class II: Soft palate, uvula, fauces visible Class III: Soft palate, base of uvula visible Class IV: Only hard plate visible Mallampati Classification: Class II Surgeon: Marcelino Diagnosis: Recrrent HS Surgical Procedure: Bilateral groin wounds closure with skin grafts placement Anesthesia History: PONV Family History: no anesthesia problems Allergies: Coded Allergies: No Known Allergies (Unverified , 12/21/16) Medications: see eMAR Past Medical History Cardiovascular: Denies: HTN, CAD, [place], valve dz, arrhythmia, other Pulmonary: Reports: asthma - mild, Denies: COPD, CELESTE, other Gastrointestinal/Genitourinary: Reports: GERD, Denies: CRI, ESRD, other Neurologic/Psychiatric: Reports: depression/anxiety, Denies: dementia, CVA, TIA, other Endocrine: Denies: DM, hypothyroidism, steroids, other HEENT: Denies: cataract (L), cataract (R), glaucoma, [place] (L), [place] (R), other Hematology/Immune: Reports: anemia - of chronic d-s, Denies: DVT, bleeding disorder, other Musculoskeletal/Integumentary: Denies: OA, RA, DJD, DDD, edema, other Other: obesity PMH Narrative: as above PSxH Narrative: see chart Anesthesia Pre-op Phys. Exam Physician Exam Last Vital Signs Date Time Temp Pulse Resp B/P (MAP) Pulse Ox O2 Delivery O2 Flow Rate FiO2 01/25/17 12:37 98.6 82 20 102/55 99 Nasal Cannula 2.0 01/24/17 19:30 21 Constitutional: NAD Neurologic: CN 2-12 intact Cardiovascular: RRR, no M/R/G Respiratory: CTA Gastrointestinal: other - obesity Airway Exam Mallampati Score: Class II MO: full Neck: flexible ROM: full Teeth: intact Dentures: no upper, no lower Anesthesia Pre-op A/P Labs Hematology Test 01/25/17 04:20 White Blood Count 11.0 K/UL (4.8-10.8) H Red Blood Count 2.68 M/UL (4.20-5.40) L Hemoglobin 7.2 G/DL (12.0-16.0) L Hematocrit 22.9 % (37.0-47.0) L Mean Corpuscular Volume 86 FL (80-99) Mean Corpuscular Hemoglobin 26.7 PG (27.0-31.0) L Mean Corpuscular Hemoglobin Concent 31.2 G/DL (32.0-36.0) L Red Cell Distribution Width 12.5 % (11.6-14.8) Platelet Count 299 K/UL (150-450) Mean Platelet Volume 6.2 FL (6.5-10.1) L Neutrophils (%) (Auto) % (45.0-75.0) Lymphocytes (%) (Auto) % (20.0-45.0) Monocytes (%) (Auto) % (1.0-10.0) Eosinophils (%) (Auto) % (0.0-3.0) Basophils (%) (Auto) % (0.0-2.0) Risk Assessment & Plan Assessment: ASA2 Plan: GA with ETT TIVA for maintenance Status Change Before Surgery: No Pre-Antibiotics Drug: Ancef 1gr. Given Within 1 Hr of Incision: Yes Time Given: 14:42 AIDEN CAMPBELL M.D. Jan 25, 2017 15:56
[2017-01-25] MEDS ORDERED: Hydromorphone 0.5mg/0.5ml inj IVP PRN (16:00)
[2017-01-25] MEDS ORDERED: DiphenhydrAMINE 50mg/ml Inj IVP PRN ×2 (16:00→17:30)
[2017-01-25] MEDS ORDERED: Midazolam 2mg/2ml Inj IVP PRN (16:00)
[2017-01-25] MEDS ORDERED: PCA HYDROmorphone 1mg/ml 30 ML IV PRN (16:00)
[2017-01-25] MEDS ORDERED: Metoclopramide 10mg/2ml Inj IVP PRN (16:00)
[2017-01-25] MEDS ORDERED: Ketorolac 30mg Inj IV PRN (16:00)
[2017-01-25] MEDS ORDERED: Rate Change PCA 1 Each MISC PRN ×2 (16:00→17:30)
[2017-01-25] MEDS ORDERED: Meperidine 25mg/0.5ml Inj (FOR RIGORS ONLY) IV PRN (16:00)
[2017-01-25] MEDS ORDERED: Propofol 10mg/ml 20ml IV ONE (16:14)
--- NOTE | 2017-01-25 16:42 | Operative Note - PDOC ---
Operative Note Operative Note Pre-op Diagnosis: Bilateral open groin wounds Procedure: Bilateral groin skin graft placement Post-op Diagnosis: same as pre-op Surgeon: Marcelino Mill Roll Rewinder: Regino Anesthesia: general Specimen: yes Complications: none Condition: stable Estimated Blood Loss: volume - 50 Drains: wound vac Implant(s) used?: No ADDISON SIERRA Jan 25, 2017 16:42
--- NOTE | 2017-01-25 17:04 | Immediate Post-Op Evaluation ---
Immediate Post-Op Evalulation Immediate Post-Op Evalulation Procedure: Bilateral groin wound closure with skin graft placement Date of Evaluation: Jan 25, 2017 Time of Evaluation: 17:03 IV Fluids: 1200 Blood Products: none Estimated Blood Loss: 50 Urinary Output: 350 Blood Pressure Systolic: 121 Blood Pressure Diastolic: 64 Pulse Rate: 106 Respiratory Rate: 22 O2 Sat by Pulse Oximetry: 99 Temperature (Fahrenheit): 98.6 Pain Score (1-10): 2 Nausea: No Vomiting: No Complications none Patient Status: reacts, patent, extubated, none Hydration Status: adequate AIDEN CAMPBELL M.D. Jan 25, 2017 17:04
[2017-01-25] MEDS ORDERED: HYDROmorphone 1mg/ml Carpuject IVP PRN (17:30)
[2017-01-25] MEDS ORDERED: LORazepam 1mg tab ORAL PRN (17:30)
[2017-01-25] MEDS ORDERED: Naloxone 0.4mg/ml Inj IVP PRN (17:30)
[2017-01-25] MEDS: PCA HYDROmorphone 1mg/ml 30 ML IV PRN (18:36)
[2017-01-25] MEDS ORDERED: PCA shift volume MISC SCH (19:00)
[2017-01-26] VITALS: BP 113/57
--- NOTE | 2017-01-26 02:45 | Operative Note - Dictated ---
DATE OF OPERATION: 01/25/2017 PREOPERATIVE DIAGNOSIS: Bilateral open groin wounds. POSTOPERATIVE DIAGNOSIS: Bilateral open groin wounds. PROCEDURES: 1. Preparation of right groin wound for skin graft coverage of wound measuring 12 x 20 cm. 2. Preparation of left groin wound for skin graft coverage, wound measuring around 14 x 23 cm. 3. Split-thickness skin graft harvested from right lateral thigh to cover right groin wound. 4. Split-thickness skin graft harvested from left lateral thigh to cover left groin wound. 5. Bilateral wound VAC placement. SURGEON: Connie Benson M.D. MAIL TECHNICIAN: Mala Lacy M.D. ANESTHESIA: General. COMPLICATIONS: None. DRAINS: Included bilateral wound VAC. DISPOSITION: Stable to the recovery room. INDICATIONS FOR SURGERY: This is a 26-year-old female, who is now three days postoperative from bilateral wound debridement status post dehiscence of an extensive reconstruction of her groin status post excision of hidradenitis. The patient underwent a partial closure of her wounds at that last operation three days ago with wound VAC placement and is now ready for definitive coverage of her wounds with split-thickness skin graft. She understands the risks and benefits of surgery and agrees to proceed. DETAILS OF THE OPERATION: The patient was brought to the operating room and laid in the lithotomy position on the operating room table. Her bilateral thighs, perineum, and lower abdomen were prepped and draped in a sterile and usual fashion. We first began by addressing the right groin wound by debriding it of its nonviable tissue at its wound base as well as its edges. The wound measured 12 x 20 cm. A corresponding skin graft was then designed on the ipsilateral lateral thigh. The dermatome was set to 14, 1000 of an inch and a 4-inch blade was used to harvest the skin graft. The graft was then placed in a 1 to 1.5 mesher and set on the back table. In a similar fashion, the contralateral right groin wound was approached with debridement of a nonviable tissue at its base as well as the skin edges. Once the debridement and preparation was completed, a corresponding skin graft was harvested on the ipsilateral lateral thigh using a dermatome set to 14, 1000 of an inch and this graft was also placed on the back table. Both wounds were copiously irrigated with pulse lavage. Both skin grafts were then meshed 1 to 1.5. We proceeded to inset first the right split-thickness skin graft over the wound and it was inset using chromic sutures in a running fashion and multiple quilting sutures were also placed to optimize the skin graft contact with the wound bed. In a similar fashion, the contralateral skin graft was also inset using 3-0 chromic sutures as well as quilting sutures and bilateral wound VACs were placed to secure the skin graft. The plan will be to leave the skin graft bolsters or the wound VAC on for four to five days before removing them to examine the graft. The patient tolerated the procedure well. There were no complications. Connie Benson M.D. DR: PATY JOB#: [id number] CC:
[2017-01-26 04:00] VITALS: BP 109/50
[2017-01-26] MEDS: ceFAZolin sod 1 GM in D5W 55 ML IVPB SCH ×3 (05:06→21:36)
[2017-01-26] MEDS: PCA shift volume MISC SCH ×2 (07:00→19:00)
[2017-01-26 07:26] LABS: MEAN CORPUSCULAR HEMOGLOBIN 28.4 PG (27.0-31.0); MEAN CORPUSCULAR HGB CONC 32.1 G/DL (32.0-36.0); MEAN CORPUSCULAR VOLUME 88 FL (80-99); MEAN PLATELET VOLUME 6.9 FL (6.5-10.1); PLATELET COUNT 314 K/UL (150-450); RED BLOOD COUNT 2.72 M/UL (4.20-5.40); WHITE BLOOD COUNT 10.5 K/UL (4.8-10.8)
[2017-01-26 08:20] VITALS: BP 106/55
[2017-01-26] MEDS: Montelukast 10mg tablet ORAL SCH (09:49)
[2017-01-26] MEDS: Docusate 100mg cap ORAL SCH ×2 (09:49→21:36)
[2017-01-26] MEDS: Heparin 5000 units/ml inj SUBQ SCH ×2 (09:50→21:39)
--- NOTE | 2017-01-26 09:52 | 48 Hour Post Anesthesia Eval ---
Post Anesthesia Evaluation Procedure: Bilateral groin wound closure with skin graft placement Date of Evaluation: Jan 26, 2017 Time of Evaluation: 07:07 Blood Pressure Systolic: 106 0: 55 Pulse Rate: 95 Respiratory Rate: 20 Temperature (Fahrenheit): 100.4 O2 Sat by Pulse Oximetry: 99 Airway: patent Nausea: No Vomiting: No Pain Intensity: 3 Hydration Status: adequate Cardiopulmonary Status: Stable Mental Status/LOC: patient returned to baseline Follow-up Care/Observations: 0 Post-Anesthesia Complications: 0 Follow-up care needed: N/A Celestino Lee MD Jan 26, 2017 09:52
[2017-01-26 09:54] LABS: BAND NEUTROPHILS % (MANUAL) 1 % (0-8); BASOPHILS % (MANUAL) 0 % (0-2); EOSINOPHILS % (MANUAL) 4 % (0-3); HYPOCHROMASIA 1+; LYMPHOCYTES % (MANUAL) 21 % (20-45); NEUTROPHILS % (MANUAL) 69 % (45-75); PLATELET ESTIMATE ADEQUATE; PLATELET MORPHOLOGY NORMAL; TOTAL CELLS COUNTED 100
--- NOTE | 2017-01-26 10:55 | General Progress Note ---
Progress Note Progress Note Pt seen and examined. POD# 1 from STSG to bilateral groin wounds. Doing well. Wound vacs fxing well. Plan to take down the wound vac on Saturday or Sat. ADDISON Cota MD Jan 26, 2017 10:55
[2017-01-26 12:20] VITALS: BP 106/49
--- NOTE | 2017-01-26 13:25 | General Progress Note ---
Assessment/Plan Problem List: (1) Sepsis Assessment & Plan: Fevers + leukocytosis ICD Codes: A41.9 - Sepsis, unspecified organism SNOMED: 59051277 (2) Wound dehiscence ICD Codes: T81.30XA - Disruption of wound, unspecified, initial encounter SNOMED: 939129030 (3) Hidradenitis suppurativa ICD Codes: L73.2 - Hidradenitis suppurativa SNOMED: 00432858 (4) Acute blood loss anemia ICD Codes: D62 - Acute posthemorrhagic anemia SNOMED: 280201470 (5) Constipation ICD Codes: K59.00 - Constipation, unspecified SNOMED: 46126754 (6) Hematochezia Assessment & Plan: resolved ICD Codes: K92.1 - Melena SNOMED: 859457948 (7) Iron deficiency anemia ICD Codes: D50.9 - Iron deficiency anemia, unspecified SNOMED: 77227640 Assessment/Plan Plastic surgery consulted s/p debridement and partial closure of bilateral groin and thigh wounds with wound vac placement 01/22/17 Plan on skin graft to the open areas today F/u blood cultures Empiric ancef IVFs Wound care per surgery Ferrous sulfate 325mg BID Monitor stools/BMs for signs of bleeding. If persistent, consider GI consult Trend CBC Transfuse 1U pRBC today Pain control, bowel regimen Supportive care A total of 31min of extra time was spent for care/coordination and counseling, in addition to normal encounter time. D/w pt/family, RN, surgery regarding mgmt and dispo. D/w surgery re pRBC transfusion prior to OR Subjective Date patient seen: Jan 25, 2017 Time patient seen: 11:00 ROS Limited/Unobtainable: No Constitutional: Reports: no symptoms HEENT: Reports: no symptoms Cardiovascular: Reports: no symptoms Respiratory: Reports: no symptoms Gastrointestinal/Abdominal: Reports: no symptoms Genitourinary: Reports: no symptoms Neurologic/Psychiatric: Reports: no symptoms Endocrine: Reports: no symptoms Hematologic/Lymphatic: Reports: no symptoms Allergies: Coded Allergies: No Known Allergies (Unverified , 12/21/16) All Systems: reviewed and negative except above Subjective s/p debridement and partial closure of bilateral groin and thigh wounds with wound vac placement POD#3 NPO for OR today Afebrile overnight WBC down to 11 Hgb 7.2--> 1U pRBC to be transfused prior to OR 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 Complaints of some shooting pain down leg Denies f/c, d/c, chest pain, SOB Objective Last 24 Hour Vital Signs Date Time Temp Pulse Resp B/P (MAP) Pulse Ox O2 Delivery O2 Flow Rate FiO2 01/26/17 10:45 100.4 01/26/17 09:52 95 20 99 01/26/17 09:06 67 18 100 Room Air 01/26/17 09:06 67 18 Room Air 01/26/17 09:06 Room Air 01/26/17 09:06 100 Room Air 01/26/17 09:06 67 18 100 Room Air 01/26/17 08:20 100.4 95 20 106/55 99 Room Air 01/26/17 07:30 15 01/26/17 04:00 99.9 67 18 109/50 100 Nasal Cannula 2.0 01/26/17 04:00 15 01/26/17 00:00 16 01/26/17 00:00 98.3 91 18 113/57 100 Room Air 01/25/17 21:48 98 Room Air 01/25/17 21:48 92 20 Room Air 01/25/17 21:48 Room Air 01/25/17 20:00 17 01/25/17 20:00 97.8 80 18 105/58 100 Room Air 01/25/17 18:00 98.6 87 13 107/53 100 Nasal Cannula 3.0 01/25/17 17:47 98.9 01/25/17 17:45 81 21 102/56 100 Nasal Cannula 3.0 01/25/17 17:30 93 14 106/57 100 Nasal Cannula 3.0 01/25/17 17:17 93 16 114/55 100 Nasal Cannula 3.0 01/25/17 17:09 89 18 133/62 100 Nasal Cannula 3.0 01/25/17 17:04 106 14 121/64 99 Simple Mask 6.0 01/25/17 17:04 106 22 99 01/25/17 16:59 98.3 110 12 124/44 99 Simple Mask 6.0 Laboratory Tests 01/26/17 05:00: White Blood Count 10.5, Red Blood Count 2.72L, Hemoglobin 7.7L, Hematocrit 24.0L , Mean Corpuscular Volume 88, Mean Corpuscular Hemoglobin 28.4, Mean Corpuscular Hemoglobin Concent 32.1, Red Cell Distribution Width 13.0, Platelet Count 314, Mean Platelet Volume 6.9, Neutrophils (%) (Auto) , Lymphocytes (%) ( Auto) , Monocytes (%) (Auto) , Eosinophils (%) (Auto) , Basophils (%) (Auto) , Differential Total Cells Counted 100, Neutrophils % (Manual) 69, Lymphocytes % ( Manual) 21, Monocytes % (Manual) 5, Eosinophils % (Manual) 4H, Basophils % ( Manual) 0, Band Neutrophils 1, Platelet Estimate Adequate, Platelet Morphology Normal, Hypochromasia 1+ Height (Feet): 5 Height (Inches): 5.00 Weight (Pounds): 212 Objective General: alert, cooperative, no distress, appears stated age Head: normocephalic, without obvious abnormality, atraumatic Eyes: conjunctivae/corneas clear. PERRL, EOM's intact Throat: lips, mucosa, and tongue normal. MMM Neck: supple, symmetrical, trachea midline, and no JVD Lungs: clear to auscultation bilaterally Heart: regular rate and rhythm, S1, S2 normal, no murmur, click, rub or gallop Abdomen: soft, non-tender, non-distended, bowel sounds normal; no masses or organomegaly Extremities: extremities normal, atraumatic, no cyanosis or edema Dressing c/d/i +w0uond vac in place b/l Pulses: 2+ and symmetric Skin: skin color, texture, turgor normal; no rashes or lesions Neurologic: grossly normal, no focal deficits Kirk Conner M.D. Jan 26, 2017 13:25
--- NOTE | 2017-01-26 13:26 | General Progress Note ---
Assessment/Plan Problem List: (1) Sepsis Assessment & Plan: Fevers + leukocytosis ICD Codes: A41.9 - Sepsis, unspecified organism SNOMED: 05199693 (2) Wound dehiscence ICD Codes: T81.30XA - Disruption of wound, unspecified, initial encounter SNOMED: 272328807 (3) Hidradenitis suppurativa ICD Codes: L73.2 - Hidradenitis suppurativa SNOMED: 76902827 (4) Acute blood loss anemia ICD Codes: D62 - Acute posthemorrhagic anemia SNOMED: 119024073 (5) Constipation ICD Codes: K59.00 - Constipation, unspecified SNOMED: 90353699 (6) Hematochezia Assessment & Plan: resolved ICD Codes: K92.1 - Melena SNOMED: 726294965 (7) Iron deficiency anemia ICD Codes: D50.9 - Iron deficiency anemia, unspecified SNOMED: 83316270 Status: stable Assessment/Plan Plastic surgery consulted s/p debridement and partial closure of bilateral groin and thigh wounds with wound vac placement 01/22/17 s/p bilateral groin skin graft placement F/u blood cultures Empiric ancef IVFs Wound care per surgery Ferrous sulfate 325mg BID Monitor stools/BMs for signs of bleeding. If persistent, consider GI consult Trend CBC s/p 1U pRBC on 01/25/17 Pain control, bowel regimen Supportive care A total of 31min of extra time was spent for care/coordination and counseling, in addition to normal encounter time. D/w pt/family, RN, surgery regarding mgmt and dispo. 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 Complaints of some shooting pain down leg Denies f/c, d/c, chest pain, SOB Objective Last 24 Hour Vital Signs Date Time Temp Pulse Resp B/P (MAP) Pulse Ox O2 Delivery O2 Flow Rate FiO2 01/26/17 10:45 100.4 01/26/17 09:52 95 20 99 01/26/17 09:06 67 18 100 Room Air 8/26/17 09:06 67 18 Room Air 01/26/17 09:06 Room Air 01/26/17 09:06 100 Room Air 01/26/17 09:06 67 18 100 Room Air 01/26/17 08:20 100.4 95 20 106/55 99 Room Air 01/26/17 07:30 15 01/26/17 04:00 99.9 67 18 109/50 100 Nasal Cannula 2.0 01/26/17 04:00 15 01/26/17 00:00 16 01/26/17 00:00 98.3 91 18 113/57 100 Room Air 01/25/17 21:48 98 Room Air 01/25/17 21:48 92 20 Room Air 01/25/17 21:48 Room Air 01/25/17 20:00 17 01/25/17 20:00 97.8 80 18 105/58 100 Room Air 01/25/17 18:00 98.6 87 13 107/53 100 Nasal Cannula 3.0 01/25/17 17:47 98.9 01/25/17 17:45 81 21 102/56 100 Nasal Cannula 3.0 01/25/17 17:30 93 14 106/57 100 Nasal Cannula 3.0 01/25/17 17:17 93 16 114/55 100 Nasal Cannula 3.0 01/25/17 17:09 89 18 133/62 100 Nasal Cannula 3.0 01/25/17 17:04 106 14 121/64 99 Simple Mask 6.0 01/25/17 17:04 106 22 99 01/25/17 16:59 98.3 110 12 124/44 99 Simple Mask 6.0 Laboratory Tests 01/26/17 05:00: White Blood Count 10.5, Red Blood Count 2.72L, Hemoglobin 7.7L, Hematocrit 24.0L , Mean Corpuscular Volume 88, Mean Corpuscular Hemoglobin 28.4, Mean Corpuscular Hemoglobin Concent 32.1, Red Cell Distribution Width 13.0, Platelet Count 314, Mean Platelet Volume 6.9, Neutrophils (%) (Auto) , Lymphocytes (%) ( Auto) , Monocytes (%) (Auto) , Eosinophils (%) (Auto) , Basophils (%) (Auto) , Differential Total Cells Counted 100, Neutrophils % (Manual) 69, Lymphocytes % ( Manual) 21, Monocytes % (Manual) 5, Eosinophils % (Manual) 4H, Basophils % ( Manual) 0, Band Neutrophils 1, Platelet Estimate Adequate, Platelet Morphology Normal, Hypochromasia 1+ Height (Feet): 5 Height (Inches): 5.00 Weight (Pounds): 212 Objective General: alert, cooperative, no distress, appears stated age Head: normocephalic, without obvious abnormality, atraumatic Eyes: conjunctivae/corneas clear. PERRL, EOM's intact Throat: lips, mucosa, and tongue normal. MMM Neck: supple, symmetrical, trachea midline, and no JVD Lungs: clear to auscultation bilaterally Heart: regular rate and rhythm, S1, S2 normal, no murmur, click, rub or gallop Abdomen: soft, non-tender, non-distended, bowel sounds normal; no masses or organomegaly Extremities: extremities normal, atraumatic, no cyanosis or edema Dressing c/d/i +w0uond vac in place b/l Pulses: 2+ and symmetric Skin: skin color, texture, turgor normal; no rashes or lesions Neurologic: grossly normal, no focal deficits Kirk Conner M.D. Jan 26, 2017 13:25
[2017-01-26] MEDS ORDERED: Tubing Blood Filter IV ONE (13:40)
[2017-01-26] MEDS ORDERED: 1/2 NS 1000ml IV ONE (13:40)
[2017-01-26 16:00] VITALS: BP 99/56
[2017-01-26 20:00] VITALS: BP 106/59
[2017-01-26] MEDS: PCA HYDROmorphone 1mg/ml 30 ML IV PRN (20:20)
[2017-01-27] MEDS: ceFAZolin sod 1 GM in D5W 55 ML IVPB SCH ×3 (06:05→23:09)
[2017-01-27] MEDS: PCA shift volume MISC SCH ×2 (07:00→19:17)
[2017-01-27 08:00] VITALS: BP 103/66
[2017-01-27] MEDS: Docusate 100mg cap ORAL SCH ×2 (09:17→21:10)
[2017-01-27] MEDS: Montelukast 10mg tablet ORAL SCH (09:17)
[2017-01-27] MEDS: Heparin 5000 units/ml inj SUBQ SCH ×2 (09:21→21:12)
--- NOTE | 2017-01-27 10:53 | General Progress Note ---
Assessment/Plan Assessment/Plan (1) Hidradenitis suppurativa (2) B/L groin and thigh wound infection (3) S/p Debridement and skin graft placement (4) Intractable pain Pt will be continued on REAL ESTATE LEASING AGENT Dilaudid, Dilaudid inj, [place] and Neurontin. She will be started on Percocet 10/325mg PO 1tab Q4H PRN moderate pain. D/w Dr. Barrios and he concurred. Subjective Date patient seen: Jan 27, 2017 Time patient seen: 09:45 - am Allergies: Coded Allergies: No Known Allergies (Unverified , 12/21/16) Subjective Constitutional: Reports: weakness HEENT: Reports: no symptoms Cardiovascular: Reports: no symptoms Respiratory: Reports: no symptoms Gastrointestinal/Abdominal: Reports: no symptoms Genitourinary: Reports: no symptoms Neurologic/Psychiatric: Reports: tingling Endocrine: Reports: no symptoms Hematologic/Lymphatic: Reports: no symptoms Subjective Patient is laying in bed with family at bedside. Pt is s/p surgery and was increased on the REAL ESTATE LEASING AGENT to 0.4mg Q6min, requesting 5mg in the last 24hrs, pain a 2/ 10 at this time. I d/w her about transitioning from IV to tabs she understands. Objective Last 24 Hour Vital Signs Date Time Temp Pulse Resp B/P (MAP) Pulse Ox O2 Delivery O2 Flow Rate FiO2 01/27/17 08:00 20 01/27/17 08:00 99.1 80 18 103/66 98 Room Air 01/27/17 04:00 18 01/27/17 00:00 18 01/26/17 20:24 98 Room Air 01/26/17 20:24 Room Air 01/26/17 20:24 85 18 Room Air 01/26/17 20:00 18 01/26/17 20:00 98.3 78 18 106/59 100 Room Air 01/26/17 16:00 98.2 77 18 99/56 Room Air 01/26/17 16:00 20 01/26/17 12:20 99.0 92 20 106/49 98 Room Air 01/26/17 12:00 20 Intake and Output 01/27/17 01/28/17 19:00 07:00 Intake Total 465 ml Balance 465 ml Intake Oral 240 ml IV Total 225 ml Height (Feet): 5 Height (Inches): 5.00 Weight (Pounds): 212 Objective General Appearance: no apparent distress, alert EENT: PERRL/EOMI, normal ENT inspection Neck: non-tender, normal alignment Cardiovascular: normal rate, regular rhythm Respiratory/Chest: lungs clear, normal breath sounds Abdomen: soft, no organomegaly Extremities: other - bandages and tenderness to plaption noted at b/l thighs Edema: trace edema Neurologic: alert, oriented x 3 Skin: warm/dry FELIX ALTAMIRANO Jan 27, 2017 10:53
[2017-01-27] MEDS ORDERED: PCA HYDROmorphone 1mg/ml 30 ML IV PRN (11:00)
[2017-01-27 12:00] VITALS: BP 109/76
--- NOTE | 2017-01-27 13:49 | General Progress Note ---
Assessment/Plan Problem List: (1) Sepsis Assessment & Plan: Fevers + leukocytosis ICD Codes: A41.9 - Sepsis, unspecified organism SNOMED: 59389933 (2) Wound dehiscence ICD Codes: T81.30XA - Disruption of wound, unspecified, initial encounter SNOMED: 714850086 (3) Hidradenitis suppurativa ICD Codes: L73.2 - Hidradenitis suppurativa SNOMED: 97282368 (4) Acute blood loss anemia ICD Codes: D62 - Acute posthemorrhagic anemia SNOMED: 572245642 (5) Constipation ICD Codes: K59.00 - Constipation, unspecified SNOMED: 07085219 (6) Hematochezia Assessment & Plan: resolved ICD Codes: K92.1 - Melena SNOMED: 341984157 (7) Iron deficiency anemia ICD Codes: D50.9 - Iron deficiency anemia, unspecified SNOMED: 19930965 Status: stable Assessment/Plan Plastic surgery consulted s/p debridement and partial closure of bilateral groin and thigh wounds with wound vac placement 01/22/17 s/p bilateral groin skin graft placement 01/25/17 F/u blood cultures Empiric ancef IVFs Wound care per surgery Ferrous sulfate 325mg BID Monitor stools/BMs for signs of bleeding. If persistent, consider GI consult Trend CBC s/p 1U pRBC on 01/25/17 Pain control, bowel regimen Supportive care A total of 31min of extra time was spent for care/coordination and counseling, in addition to normal encounter time. D/w pt/family, RN, surgery regarding mgmt and dispo. Subjective Date patient seen: Jan 27, 2017 Time patient seen: 13:48 ROS Limited/Unobtainable: No Constitutional: Reports: no symptoms HEENT: Reports: no symptoms Cardiovascular: Reports: no symptoms Respiratory: Reports: no symptoms Gastrointestinal/Abdominal: Reports: no symptoms Genitourinary: Reports: no symptoms Neurologic/Psychiatric: Reports: no symptoms Endocrine: Reports: no symptoms Hematologic/Lymphatic: Reports: no symptoms Allergies: Coded Allergies: No Known Allergies (Unverified , 12/21/16) All Systems: reviewed and negative except above Subjective s/p bilateral groin skin graft placement POD2 Temp to 100.4 yesterday 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 f/c, d/c, chest pain, SOB Objective Last 24 Hour Vital Signs Date Time Temp Pulse Resp B/P (MAP) Pulse Ox O2 Delivery O2 Flow Rate FiO2 01/27/17 12:00 18 01/27/17 08:00 20 01/27/17 08:00 99.1 80 18 103/66 98 Room Air 01/27/17 04:00 18 01/27/17 00:00 18 01/26/17 20:24 98 Room Air 01/26/17 20:24 Room Air 01/26/17 20:24 85 18 Room Air 01/26/17 20:00 18 01/26/17 20:00 98.3 78 18 106/59 100 Room Air 01/26/17 16:00 98.2 77 18 99/56 Room Air 01/26/17 16:00 20 Intake and Output 01/27/17 01/28/17 19:00 07:00 Intake Total 690 ml Balance 690 ml Intake Oral 240 ml IV Total 450 ml Height (Feet): 5 Height (Inches): 5.00 Weight (Pounds): 212 Objective General: alert, cooperative, no distress, appears stated age Head: normocephalic, without obvious abnormality, atraumatic Eyes: conjunctivae/corneas clear. PERRL, EOM's intact Throat: lips, mucosa, and tongue normal. MMM Neck: supple, symmetrical, trachea midline, and no JVD Lungs: clear to auscultation bilaterally Heart: regular rate and rhythm, S1, S2 normal, no murmur, click, rub or gallop Abdomen: soft, non-tender, non-distended, bowel sounds normal; no masses or organomegaly Extremities: extremities normal, atraumatic, no cyanosis or edema Dressing c/d/i +w0uond vac in place b/l Pulses: 2+ and symmetric Skin: skin color, texture, turgor normal; no rashes or lesions Neurologic: grossly normal, no focal deficits Kirk Conner M.D. Jan 27, 2017 13:49
[2017-01-27 16:29] VITALS: BP 129/75
[2017-01-27] MEDS ORDERED: 1/2 NS 1000ml IV ONE (18:24)
[2017-01-27 20:00] VITALS: BP 104/55
[2017-01-28] MEDS: ceFAZolin sod 1 GM in D5W 55 ML IVPB SCH ×3 (05:23→16:30)
[2017-01-28] MEDS: PCA shift volume MISC SCH (07:11)
[2017-01-28 07:19] LABS: BASOPHILS % (AUTO) 1.1 % (0.0-2.0); EOSINOPHILS % (AUTO) 6.8 % (0.0-3.0); LYMPHOCYTES % (AUTO) 31.6 % (20.0-45.0); MEAN CORPUSCULAR HEMOGLOBIN 29.9 PG (27.0-31.0); MEAN CORPUSCULAR HGB CONC 33.8 G/DL (32.0-36.0); MEAN CORPUSCULAR VOLUME 88 FL (80-99); MEAN PLATELET VOLUME 6.5 FL (6.5-10.1); MONOCYTES % (AUTO) 7.1 % (1.0-10.0); NEUTROPHILS % (AUTO) 53.4 % (45.0-75.0); PLATELET COUNT 373 K/UL (150-450); RED CELL DISTRIBUTION WIDTH 13.3 % (11.6-14.8); WHITE BLOOD COUNT 9.8 K/UL (4.8-10.8)
--- NOTE | 2017-01-28 08:11 | General Progress Note ---
Assessment/Plan Assessment/Plan (1) Hidradenitis suppurativa (2) B/L groin and thigh wound infection (3) S/p Debridement and skin graft placement (4) Intractable pain Pt will be discontinue the TILTING HEAD BAND SAWYER Dilaudid, continue Percocet, Dilaudid inj, [place] and Neurontin. D/w Dr. Barrios and he concurred. Subjective Date patient seen: Jan 28, 2017 Time patient seen: 07:45 - am Allergies: Coded Allergies: No Known Allergies (Unverified , 12/21/16) Subjective Constitutional: Reports: weakness HEENT: Reports: no symptoms Cardiovascular: Reports: no symptoms Respiratory: Reports: no symptoms Gastrointestinal/Abdominal: Reports: no symptoms Genitourinary: Reports: no symptoms Neurologic/Psychiatric: Reports: tingling Endocrine: Reports: no symptoms Hematologic/Lymphatic: Reports: no symptoms Subjective Patient is in bed no signs of pain or distress. Has used 3mg of the TILTING HEAD BAND SAWYER and pain is a 4/10. I d/w pt about discontinuing the TILTING HEAD BAND SAWYER and she understands. Objective Last 24 Hour Vital Signs Date Time Temp Pulse Resp B/P (MAP) Pulse Ox O2 Delivery O2 Flow Rate FiO2 01/28/17 04:00 18 01/28/17 00:00 18 01/27/17 20:00 20 01/27/17 20:00 99.1 73 18 104/55 97 Room Air 01/27/17 19:50 87 16 Room Air 01/27/17 19:50 97 Room Air 01/27/17 19:50 Room Air 01/27/17 18:08 93 20 98 Room Air 2.0 01/27/17 16:29 99.3 93 20 129/75 98 Room Air 01/27/17 16:00 20 01/27/17 12:00 18 01/27/17 12:00 99.3 84 18 109/76 99 Room Air 01/27/17 10:15 98 Room Air 01/27/17 10:15 Room Air 01/27/17 10:15 80 18 Room Air 01/27/17 10:15 80 18 98 Room Air 21 Laboratory Tests 01/28/17 05:20: White Blood Count 9.8, Red Blood Count 2.70L, Hemoglobin 8.1L, Hematocrit 23.9L , Mean Corpuscular Volume 88, Mean Corpuscular Hemoglobin 29.9, Mean Corpuscular Hemoglobin Concent 33.8, Red Cell Distribution Width 13.3, Platelet Count 373, Mean Platelet Volume 6.5, Neutrophils (%) (Auto) 53.4, Lymphocytes (% ) (Auto) 31.6, Monocytes (%) (Auto) 7.1, Eosinophils (%) (Auto) 6.8H, Basophils (%) (Auto) 1.1 Height (Feet): 5 Height (Inches): 5.00 Weight (Pounds): 212 Objective General Appearance: no apparent distress, alert EENT: PERRL/EOMI, normal ENT inspection Neck: non-tender, normal alignment Cardiovascular: normal rate, regular rhythm Respiratory/Chest: lungs clear, normal breath sounds Abdomen: soft, no organomegaly Extremities: other - bandages and tenderness to plaption noted at b/l thighs Edema: trace edema Neurologic: alert, oriented x 3 Skin: warm/dry FELIX ALTAMIRANO Jan 28, 2017 08:11
--- NOTE | 2017-01-28 08:45 | Consultation ---
DATE OF CONSULTATION: PAIN MANAGEMENT CONSULTATION CONSULTING PHYSICIAN: Randall Barrios M.D. REFERRING PHYSICIAN: Hector Montano M.D. PHYSICIAN PULP ROLLER: Diego Rueda CHIEF COMPLAINT: Bilateral flank pain. HISTORY OF PRESENT ILLNESS: This is a 26-year-old female, who is being seen on the Medical/Surgical floor of [facility] for initial comprehensive pain management consultation. The patient reports that she has been having bilateral thigh pain due to hidradenitis suppurativa, had surgery and returned back due to infection under the care of Dr. Benson. She is status post debridement done on 01/22/2017 and on the 01/23/2017, on CHARGE RN Dilaudid 0.2 mg lock-out interval of six minute. A Dilaudid 2 mg subcutaneous every three hours as needed for severe pain and Dilaudid 2 mg IV every four hours as needed for moderate pain with Lengby 10/325 mg every four hours as needed for breakthrough pain with minimal pain relief. Due to this, we were consulted the patient would have adequate control while here in the hospital. The patient had used 5.2 milligrams of the CHARGE RN in the last 24 hours and will be given 2 mg subcutaneous, which minimally helps with her pain. PAST MEDICAL HISTORY: Hidradenitis suppurativa. PAST SURGICAL HISTORY: Surgical intervention for hidradenitis suppurativa. ALLERGIES: No known drug allergies. Medications: Symbicort, Keflex, Colace, ProAir, Flexeril, Lengby, Dilaudid, Motrin, and Depo-Provera. SOCIAL HISTORY: Denies smoking, drinking alcohol, or drug abuse. REVIEW OF SYSTEMS: Denies rash, fever, chills, sweating, dizziness, drowsiness, blurred vision, sore throat, or change in her weight. No shortness of breath or chest pain. No nausea, vomiting, diarrhea or blood in the stool or urine. No bowel or bladder incontinence. No hematuria or dysuria. Complaining of bilateral thigh pain. PHYSICAL EXAMINATION: GENERAL: Alert, awake, and oriented x3. VITAL SIGNS: Blood pressure 120/72, heart rate 71, oxygen saturation 98%, respiratory rate 20, and temperature is 98.8 degrees Fahrenheit. Height is 5 feet 5 inches with 212 pounds. HEENT: PERRLA. NECK: Range of motion is full in all directions. No tenderness to paracervical muscles. No adenopathy. LUNGS: clear. ABDOMEN: Obese. BACK: Range of motion is decreased in flexion and extension. No tenderness to paraspinal muscles, trapezius or rhomboid muscles. Extremities: Upper extremity range of motion is full in all directions. Motor is intact. No cyanosis. No clubbing. No edema. Sensory is intact. Reflexes are not obtainable. No adenopathy. Lower extremity range of motion is decreased. Motor is intact. No cyanosis. No clubbing. Wound VAC noted at bilateral thigh with diminished sensation. Sensory is intact. Reflexes are not obtainable. No adenopathy. ASSESSMENT AND PLAN: This is a 26-year-old female with hidradenitis suppurativa, bilateral groin and thigh wound infection status post debridement and intractable pain. The patient can be continued on the CHARGE RN Dilaudid, Dilaudid IV and Dilaudid subcutaneous and Lengby. She will be started on Neurontin 300 mg tablet once at nighttime. The patient was discussed with Dr. Barrios and Dr. Barrios concurred. We will follow the patient. Thank you very much for the courtesy of this consultation. Randall Barrios M.D. GONZALEZ Rueda DR: CLAUDIA JOB#: [id number] CC: MERVAT
[2017-01-28] MEDS: Docusate 100mg cap ORAL SCH ×2 (10:07→21:50)
[2017-01-28] MEDS: Montelukast 10mg tablet ORAL SCH (10:07)
[2017-01-28] MEDS: Heparin 5000 units/ml inj SUBQ SCH ×2 (10:09→21:53)
[2017-01-28] MEDS ORDERED: Tubing IV Secondary IV ONE (10:18)
[2017-01-28] MEDS ORDERED: 1/2 NS 1000ml IV ONE (10:18)
[2017-01-28] MEDS ORDERED: Norco 10mg/325mg tab ORAL PRN (11:00)
--- NOTE | 2017-01-28 13:18 | Wound Nurse Progress Note ---
Wound RN Progress Note Wound Consult Wound care provided as per MD order. sites were cleansed lightly and kept dry. right and left donor sites noted pink/red in color. patient was able to tolerate wound care as ordered. ALEX WHITE Jan 28, 2017 13:18
--- NOTE | 2017-01-28 15:05 | General Progress Note ---
Assessment/Plan Problem List: (1) Sepsis Assessment & Plan: Fevers + leukocytosis ICD Codes: A41.9 - Sepsis, unspecified organism SNOMED: 64604080 (2) Wound dehiscence ICD Codes: T81.30XA - Disruption of wound, unspecified, initial encounter SNOMED: 631769854 (3) Hidradenitis suppurativa ICD Codes: L73.2 - Hidradenitis suppurativa SNOMED: 43721305 (4) Acute blood loss anemia ICD Codes: D62 - Acute posthemorrhagic anemia SNOMED: 753916505 (5) Constipation ICD Codes: K59.00 - Constipation, unspecified SNOMED: 32739939 (6) Hematochezia Assessment & Plan: resolved ICD Codes: K92.1 - Melena SNOMED: 856300912 (7) Iron deficiency anemia ICD Codes: D50.9 - Iron deficiency anemia, unspecified SNOMED: 45110833 Assessment/Plan Plastic surgery consulted s/p debridement and partial closure of bilateral groin and thigh wounds with wound vac placement 01/22/17 s/p bilateral groin skin graft placement 01/25/17 F/u blood cultures Empiric ancef IVFs Wound care per surgery Ferrous sulfate 325mg BID Monitor stools/BMs for signs of bleeding. If persistent, consider GI consult Trend CBC s/p 1U pRBC on 01/25/17 Pain control, bowel regimen Supportive care A total of 31min of extra time was spent for care/coordination and counseling, in addition to normal encounter time. D/w pt/family, RN, surgery regarding mgmt and dispo. 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, 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, chest pain, SOB Objective Last 24 Hour Vital Signs Date Time Temp Pulse Resp B/P (MAP) Pulse Ox O2 Delivery O2 Flow Rate FiO2 01/28/17 09:26 88 20 97 Room Air 21 01/28/17 09:25 86 16 Room Air 01/28/17 09:25 Room Air 01/28/17 09:25 97 Room Air 01/28/17 09:25 87 18 98 Room Air 01/28/17 09:06 Room Air 01/28/17 09:06 Room Air 01/28/17 08:00 18 01/28/17 04:00 18 01/28/17 00:00 18 01/27/17 20:00 20 01/27/17 20:00 99.1 73 18 104/55 97 Room Air 01/27/17 19:50 87 16 Room Air 01/27/17 19:50 97 Room Air 01/27/17 19:50 Room Air 21 01/27/17 18:08 93 20 98 Room Air 2.0 01/27/17 16:29 99.3 93 20 129/75 98 Room Air 01/27/17 16:00 20 Intake and Output 01/28/17 01/29/17 19:00 07:00 Intake Total 480 ml Balance 480 ml Intake Oral 480 ml Laboratory Tests 01/28/17 05:20: White Blood Count 9.8, Red Blood Count 2.70L, Hemoglobin 8.1L, Hematocrit 23.9L , Mean Corpuscular Volume 88, Mean Corpuscular Hemoglobin 29.9, Mean Corpuscular Hemoglobin Concent 33.8, Red Cell Distribution Width 13.3, Platelet Count 373, Mean Platelet Volume 6.5, Neutrophils (%) (Auto) 53.4, Lymphocytes (% ) (Auto) 31.6, Monocytes (%) (Auto) 7.1, Eosinophils (%) (Auto) 6.8H, Basophils (%) (Auto) 1.1 Height (Feet): 5 Height (Inches): 5.00 Weight (Pounds): 212 Objective General: alert, cooperative, no distress, appears stated age Head: normocephalic, without obvious abnormality, atraumatic Eyes: conjunctivae/corneas clear. PERRL, EOM's intact Throat: lips, mucosa, and tongue normal. MMM Neck: supple, symmetrical, trachea midline, and no JVD Lungs: clear to auscultation bilaterally Heart: regular rate and rhythm, S1, S2 normal, no murmur, click, rub or gallop Abdomen: soft, non-tender, non-distended, bowel sounds normal; no masses or organomegaly Extremities: extremities normal, atraumatic, no cyanosis or edema Dressing c/d/i +w0uond vac in place b/l Pulses: 2+ and symmetric Skin: skin color, texture, turgor normal; no rashes or lesions Neurologic: grossly normal, no focal deficits Kirk Conner M.D. Jan 28, 2017 15:05
--- NOTE | 2017-01-28 15:13 | General Progress Note ---
Assessment/Plan Problem List: (1) Sepsis Assessment & Plan: Fevers + leukocytosis ICD Codes: A41.9 - Sepsis, unspecified organism SNOMED: 31258786 (2) Wound dehiscence ICD Codes: T81.30XA - Disruption of wound, unspecified, initial encounter SNOMED: 483472965 (3) Hidradenitis suppurativa ICD Codes: L73.2 - Hidradenitis suppurativa SNOMED: 68132995 (4) Acute blood loss anemia ICD Codes: D62 - Acute posthemorrhagic anemia SNOMED: 319331588 (5) Constipation ICD Codes: K59.00 - Constipation, unspecified SNOMED: 45547450 (6) Hematochezia Assessment & Plan: resolved ICD Codes: K92.1 - Melena SNOMED: 713401758 (7) Iron deficiency anemia ICD Codes: D50.9 - Iron deficiency anemia, unspecified SNOMED: 46625374 Status: stable Assessment/Plan Plastic surgery consulted s/p debridement and partial closure of bilateral groin and thigh wounds with wound vac placement 01/22/17 s/p bilateral groin skin graft placement 01/25/17 F/u blood cultures Empiric ancef IVFs Wound care per surgery Ferrous sulfate 325mg BID Monitor stools/BMs for signs of bleeding. If persistent, consider GI consult Trend CBC s/p 1U pRBC on 01/25/17 Pain control, bowel regimen Supportive care DC planning, possible Wed per surgery A total of 31min of extra time was spent for care/coordination and counseling, in addition to normal encounter time. D/w pt/family, RN, surgery regarding mgmt and dispo. Subjective Date patient seen: Jan 28, 2017 Time patient seen: 15:13 ROS Limited/Unobtainable: No Constitutional: Reports: no symptoms HEENT: Reports: no symptoms Cardiovascular: Reports: no symptoms Respiratory: Reports: no symptoms Gastrointestinal/Abdominal: Reports: no symptoms Genitourinary: Reports: no symptoms Neurologic/Psychiatric: Reports: no symptoms Endocrine: Reports: no symptoms Hematologic/Lymphatic: Reports: no symptoms Allergies: Coded Allergies: No Known Allergies (Unverified , 12/21/16) All Systems: reviewed and negative except above Subjective s/p bilateral groin skin graft placement POD#3 Afebrile o/n Hgb improved to 8/1 Pain controlled. 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 pain, SOB Objective Last 24 Hour Vital Signs Date Time Temp Pulse Resp B/P (MAP) Pulse Ox O2 Delivery O2 Flow Rate FiO2 01/28/17 09:26 88 20 97 Room Air 21 01/28/17 09:25 86 16 Room Air 01/28/17 09:25 Room Air 01/28/17 09:25 97 Room Air 01/28/17 09:25 87 18 98 Room Air 01/28/17 09:06 Room Air 01/28/17 09:06 Room Air 01/28/17 08:00 18 01/28/17 04:00 18 01/28/17 00:00 18 01/27/17 20:00 20 01/27/17 20:00 99.1 73 18 104/55 97 Room Air 01/27/17 19:50 87 16 Room Air 01/27/17 19:50 97 Room Air 01/27/17 19:50 Room Air 01/27/17 18:08 93 20 98 Room Air 2.0 01/27/17 16:29 99.3 93 20 129/75 98 Room Air 01/27/17 16:00 20 Intake and Output 01/28/17 01/29/17 19:00 07:00 Intake Total 480 ml Balance 480 ml Intake Oral 480 ml Laboratory Tests 01/28/17 05:20: White Blood Count 9.8, Red Blood Count 2.70L, Hemoglobin 8.1L, Hematocrit 23.9L , Mean Corpuscular Volume 88, Mean Corpuscular Hemoglobin 29.9, Mean Corpuscular Hemoglobin Concent 33.8, Red Cell Distribution Width 13.3, Platelet Count 373, Mean Platelet Volume 6.5, Neutrophils (%) (Auto) 53.4, Lymphocytes (% ) (Auto) 31.6, Monocytes (%) (Auto) 7.1, Eosinophils (%) (Auto) 6.8H, Basophils (%) (Auto) 1.1 Height (Feet): 5 Height (Inches): 5.00 Weight (Pounds): 212 Objective General: alert, cooperative, no distress, appears stated age Head: normocephalic, without obvious abnormality, atraumatic Eyes: conjunctivae/corneas clear. PERRL, EOM's intact Throat: lips, mucosa, and tongue normal. MMM Neck: supple, symmetrical, trachea midline, and no JVD Lungs: clear to auscultation bilaterally Heart: regular rate and rhythm, S1, S2 normal, no murmur, click, rub or gallop Abdomen: soft, non-tender, non-distended, bowel sounds normal; no masses or organomegaly Extremities: extremities normal, atraumatic, no cyanosis or edema Dressing c/d/i +w0uond vac in place b/l Pulses: 2+ and symmetric Skin: skin color, texture, turgor normal; no rashes or lesions Neurologic: grossly normal, no focal deficits Kirk Conner M.D. Jan 28, 2017 15:13
[2017-01-28 16:00] VITALS: BP 125/71
[2017-01-28 20:03] VITALS: BP 118/67
[2017-01-28] MEDS: Cephalexin 500mg cap ORAL SCH (21:53)
[2017-01-28] MEDS ORDERED: ceFAZolin sod 1 GM in D5W 55 ML IVPB SCH (22:00)
[2017-01-29 04:00] VITALS: BP 106/60
--- NOTE | 2017-01-29 08:38 | General Progress Note ---
Assessment/Plan Assessment/Plan (1) Hidradenitis suppurativa (2) B/L groin and thigh wound infection (3) S/p Debridement and skin graft placement (4) Intractable pain Pt will be continued on Percocet, [place] and Neurontin. D/w Dr. Barrios and he concurred. Subjective Date patient seen: Jan 29, 2017 Time patient seen: 07:45 - am Allergies: Coded Allergies: No Known Allergies (Unverified , 12/21/16) Subjective Constitutional: Reports: weakness HEENT: Reports: no symptoms Cardiovascular: Reports: no symptoms Respiratory: Reports: no symptoms Gastrointestinal/Abdominal: Reports: no symptoms Genitourinary: Reports: no symptoms Neurologic/Psychiatric: Reports: tingling Endocrine: Reports: no symptoms Hematologic/Lymphatic: Reports: no symptoms Subjective Patient is clam reporting pain is a 3/10 on the Percocet. Objective Last 24 Hour Vital Signs Date Time Temp Pulse Resp B/P (MAP) Pulse Ox O2 Delivery O2 Flow Rate FiO2 01/29/17 04:00 98.0 80 19 106/60 97 Room Air 01/28/17 21:20 98 Room Air 21 01/28/17 21:20 Room Air 21 01/28/17 21:20 73 16 Room Air 01/28/17 20:03 98.1 85 20 118/67 98 Room Air 01/28/17 16:00 98.3 84 19 125/71 96 Room Air 01/28/17 09:26 88 20 97 Room Air 01/28/17 09:25 86 16 Room Air 01/28/17 09:25 Room Air 01/28/17 09:25 97 Room Air 01/28/17 09:25 87 18 98 Room Air 01/28/17 09:06 Room Air 01/28/17 09:06 Room Air Intake and Output 01/29/17 01/30/17 19:00 07:00 Intake Total 340 ml Balance 340 ml Intake Oral 340 ml Height (Feet): 5 Height (Inches): 5.00 Weight (Pounds): 212 Objective General Appearance: no apparent distress, alert EENT: PERRL/EOMI, normal ENT inspection Neck: non-tender, normal alignment Cardiovascular: normal rate, regular rhythm Respiratory/Chest: lungs clear, normal breath sounds Abdomen: soft, no organomegaly Extremities: other - bandages and tenderness to plaption noted at b/l thighs Edema: trace edema Neurologic: alert, oriented x 3 Skin: warm/dry FELIX ALTAMIRANO Jan 29, 2017 08:38
[2017-01-29 09:11] VITALS: BP 102/59
--- NOTE | 2017-01-29 09:18 | General Progress Note ---
Progress Note Progress Note Pt seen and examined. POD # 4 and doing well. Will take down the wound vac tomorrow to evaluate the skin grafts. Likely dc home tomorrow. Addison Sierra M.D. ADDISON SIERRA Jan 29, 2017 09:18
[2017-01-29] MEDS: Montelukast 10mg tablet ORAL SCH (09:20)
[2017-01-29] MEDS: Cephalexin 500mg cap ORAL SCH ×4 (09:21→20:49)
[2017-01-29] MEDS: Docusate 100mg cap ORAL SCH ×2 (09:21→20:48)
[2017-01-29] MEDS: Heparin 5000 units/ml inj SUBQ SCH ×2 (09:25→20:50)
[2017-01-29 11:59] VITALS: BP 125/75
--- NOTE | 2017-01-29 12:45 | General Progress Note ---
Assessment/Plan Problem List: (1) Sepsis Assessment & Plan: Fevers + leukocytosis ICD Codes: A41.9 - Sepsis, unspecified organism SNOMED: 03042798 (2) Wound dehiscence ICD Codes: T81.30XA - Disruption of wound, unspecified, initial encounter SNOMED: 645712741 (3) Hidradenitis suppurativa ICD Codes: L73.2 - Hidradenitis suppurativa SNOMED: 29740986 (4) Acute blood loss anemia ICD Codes: D62 - Acute posthemorrhagic anemia SNOMED: 270423121 (5) Constipation ICD Codes: K59.00 - Constipation, unspecified SNOMED: 00437958 (6) Hematochezia Assessment & Plan: resolved ICD Codes: K92.1 - Melena SNOMED: 768902064 (7) Iron deficiency anemia ICD Codes: D50.9 - Iron deficiency anemia, unspecified SNOMED: 22390055 Status: stable Assessment/Plan Plastic surgery consulted s/p debridement and partial closure of bilateral groin and thigh wounds with wound vac placement 01/22/17 s/p bilateral groin skin graft placement 01/25/17 Plan for wound vac removal per surgery F/u blood cultures--ngtd Keflex 500mg q6h x 7d Wound care per surgery Ferrous sulfate 325mg BID Monitor stools/BMs for signs of bleeding. If persistent, consider GI consult Trend CBC s/p 1U pRBC on 01/25/17 Pain control, bowel regimen Supportive care DC planning, possibly tomorrow per surgery A total of 32min of extra time was spent for care/coordination and counseling, in addition to normal encounter time. D/w pt/family, RN, surgery regarding mgmt and dispo. Subjective Date patient seen: Jan 29, 2017 Time patient seen: 12:45 ROS Limited/Unobtainable: No HEENT: Reports: no symptoms Cardiovascular: Reports: no symptoms Respiratory: Reports: no symptoms Gastrointestinal/Abdominal: Reports: no symptoms Genitourinary: Reports: no symptoms Neurologic/Psychiatric: Reports: no symptoms Endocrine: Reports: no symptoms Hematologic/Lymphatic: Reports: no symptoms Allergies: Coded Allergies: No Known Allergies (Unverified , 12/21/16) All Systems: reviewed and negative except above Subjective s/p bilateral groin skin graft placement POD#4 Afebrile o/n Hgb improved to 8 Pain controlled. 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 pain, SOB Objective Last 24 Hour Vital Signs Date Time Temp Pulse Resp B/P (MAP) Pulse Ox O2 Delivery O2 Flow Rate FiO2 01/29/17 11:59 98.2 100 20 125/75 98 Room Air 01/29/17 09:12 Room Air 01/29/17 09:12 99 Room Air 01/29/17 09:12 88 16 99 Room Air 01/29/17 09:12 88 16 Room Air 01/29/17 09:12 88 16 99 Room Air 01/29/17 09:11 98.1 88 20 102/59 99 Room Air 01/29/17 04:00 98.0 80 19 106/60 97 Room Air 01/28/17 21:20 98 Room Air 21 01/28/17 21:20 Room Air 21 01/28/17 21:20 73 16 Room Air 21 01/28/17 20:03 98.1 85 20 118/67 98 Room Air 01/28/17 16:00 98.3 84 19 125/71 96 Room Air Intake and Output 01/29/17 01/30/17 19:00 07:00 Intake Total 680 ml Output Total 600 ml Balance 80 ml Intake Oral 680 ml Output Urine Total 600 ml # Voids 1 Height (Feet): 5 Height (Inches): 5.00 Weight (Pounds): 212 Objective General: alert, cooperative, no distress, appears stated age Head: normocephalic, without obvious abnormality, atraumatic Eyes: conjunctivae/corneas clear. PERRL, EOM's intact Throat: lips, mucosa, and tongue normal. MMM Neck: supple, symmetrical, trachea midline, and no JVD Lungs: clear to auscultation bilaterally Heart: regular rate and rhythm, S1, S2 normal, no murmur, click, rub or gallop Abdomen: soft, non-tender, non-distended, bowel sounds normal; no masses or organomegaly Extremities: extremities normal, atraumatic, no cyanosis or edema Dressing c/d/i +w0uond vac in place b/l Pulses: 2+ and symmetric Skin: skin color, texture, turgor normal; no rashes or lesions Neurologic: grossly normal, no focal deficits Kirk Conenr M.D. Jan 29, 2017 12:45
[2017-01-29] MEDS ORDERED: KEFLEX500 MG ORAL (13:17)
[2017-01-29] MEDS ORDERED: HYDROCODON-ACE1 EA13 ORAL (13:17)
[2017-01-29 16:00] VITALS: BP 112/61
[2017-01-29 20:14] VITALS: BP 137/72
[2017-01-30 06:00] VITALS: BP 107/63
[2017-01-30 08:00] VITALS: BP 118/69
[2017-01-30] MEDS ORDERED: HYDROmorphone 1mg/ml Carpuject IM ONE (08:00)
--- NOTE | 2017-01-30 08:14 | General Progress Note ---
Assessment/Plan Assessment/Plan (1) Hidradenitis suppurativa (2) B/L groin and thigh wound infection (3) S/p Debridement and skin graft placement (4) Intractable pain Pt will be continued on Percocet, [place] and Neurontin. Rx for Percocet 10/325mg 45 tabs was written for pt in anticipation for discharge. D/w Dr. Barrios and he concurred. Subjective Date patient seen: Jan 30, 2017 Time patient seen: 06:30 - am Allergies: Coded Allergies: No Known Allergies (Unverified , 12/21/16) Subjective Constitutional: Reports: weakness HEENT: Reports: no symptoms Cardiovascular: Reports: no symptoms Respiratory: Reports: no symptoms Gastrointestinal/Abdominal: Reports: no symptoms Genitourinary: Reports: no symptoms Neurologic/Psychiatric: Reports: tingling Endocrine: Reports: no symptoms Hematologic/Lymphatic: Reports: no symptoms Subjective Pt is in bed family at bed side. 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 Objective Last 24 Hour Vital Signs Date Time Temp Pulse Resp B/P (MAP) Pulse Ox O2 Delivery O2 Flow Rate FiO2 01/30/17 08:07 98 Room Air 01/30/17 08:07 Room Air 01/30/17 08:06 88 16 Room Air 01/30/17 06:00 97.8 89 18 107/63 95 Room Air 01/29/17 21:53 Room Air 01/29/17 21:53 98 Room Air 01/29/17 21:53 80 16 Room Air 01/29/17 20:14 98.2 87 18 137/72 99 Room Air 01/29/17 16:00 98.3 100 19 112/61 98 Room Air 01/29/17 15:26 98.2 01/29/17 11:59 98.2 100 20 125/75 98 Room Air 01/29/17 09:12 Room Air 01/29/17 09:12 99 Room Air 01/29/17 09:12 88 16 99 Room Air 01/29/17 09:12 88 16 Room Air 01/29/17 09:12 88 16 99 Room Air 01/29/17 09:11 98.1 88 20 102/59 99 Room Air Intake and Output 8/30/17 8/31/17 19:00 07:00 Output Total 50 ml Balance -50 ml Other 50 ml Height (Feet): 5 Height (Inches): 5.00 Weight (Pounds): 212 Objective General Appearance: no apparent distress, alert EENT: PERRL/EOMI, normal ENT inspection Neck: non-tender, normal alignment Cardiovascular: normal rate, regular rhythm Respiratory/Chest: lungs clear, normal breath sounds Abdomen: soft, no organomegaly Extremities: other - bandages and tenderness to plaption noted at b/l thighs Edema: trace edema Neurologic: alert, oriented x 3 Skin: warm/dry FELIX ALTAMIRANO Jan 30, 2017 08:14
[2017-01-30] MEDS: Montelukast 10mg tablet ORAL SCH (08:25)
[2017-01-30] MEDS: Cephalexin 500mg cap ORAL SCH ×2 (08:25→12:34)
[2017-01-30] MEDS: Docusate 100mg cap ORAL SCH (08:25)
[2017-01-30] MEDS: Heparin 5000 units/ml inj SUBQ SCH (08:28)
--- NOTE | 2017-01-30 17:56 | Discharge Summary ---
Discharge Summary Hospital Course Date of Admission Jan 21, 2017 at 14:00 Date of Discharge Jan 30, 2017 at 15:58 Admitting Diagnosis hidradenitis HPI Jerri Tinsley is a 26 year old female who was admitted on Jan 21, 2017 at 14:00 for Hidradenitis Discharge Discharge Disposition Patient was discharged to Home (01) Discharge Diagnoses: Kirk Conner M.D. Jan 30, 2017 17:56
== END 2017-01-30 15:58 | disposition home or self-care (01) | DRG 857 ==
LOC: EMR 13:56 → 3E 14:00 → EDBEDREQ 14:17
PROC: 0JBL0ZZ Excision of Right Upper Leg Subcutaneous Tissue and Fascia, Open Approach (ICD-10-PCS; 2017-01-22)
PROC: 0JBM0ZZ Excision of Left Upper Leg Subcutaneous Tissue and Fascia, Open Approach (ICD-10-PCS; principal; 2017-01-22 13:30)
PROC: 0JBC0ZZ Excision of Pelvic Region Subcutaneous Tissue and Fascia, Open Approach (ICD-10-PCS; principal; 2017-01-22 13:30)
PROC: 30233N1 Transfusion of Nonautologous Red Blood Cells into Peripheral Vein, Percutaneous Approach (ICD-10-PCS; 2017-01-25)
PROC: 0HXHXZZ Transfer Right Upper Leg Skin, External Approach (ICD-10-PCS; 2017-01-25)
PROC: 0HXJXZZ Transfer Left Upper Leg Skin, External Approach (ICD-10-PCS; 2017-01-25)
DX: T81.4XXA Infection following a procedure, initial encounter (principal); T81.30XA Disruption of wound, unspecified, initial encounter; D62 Acute posthemorrhagic anemia; K92.1 Melena; K59.00 Constipation, unspecified; L73.2 Hidradenitis suppurativa; D50.9 Iron deficiency anemia, unspecified; Y83.8 Other surgical procedures as the cause of abnormal reaction of the patient, or of later complication, without mention of misadventure at the time of the procedure; Y92.018 Other place in single-family (private) house as the place of occurrence of the external cause
CPT/HCPCS: 36415; 71010; 80048; 80053; 81003; 81025; 82728; 83540; 83550; 85007; 85025; 85610; 85730; 86850; 86900; 86901; 86920; 87040; 87086; 87181; 93005; 93970; 94003; 94150; 94640; 94664; 94760; J2250; J2405; J2710; J2765